=== PATIENT | male | born 1960 | race Caucasian/White ===

== ENCOUNTER → 2019-07-05 08:18 | Outpatient (BNVA) | payer MEDICARE, MEDICAID, SELFPAY | PROVIDERS: Family Provider Internal Medicine; PCP Internal Medicine; Visit Provider Psychiatry & Neurology Psychiatry | DX: F20.89 Other schizophrenia (principal) | CPT/HCPCS: 99213 ==

== ENCOUNTER → 2020-01-03 07:29 | Outpatient (BNVA) | payer MEDICARE, MEDICAID, SELFPAY | PROVIDERS: Family Provider Internal Medicine; PCP Internal Medicine; Visit Provider Psychiatry & Neurology Psychiatry | DX: F20.89 Other schizophrenia (principal) | CPT/HCPCS: 99213 ==

== ENCOUNTER → 2020-07-06 07:59 | Outpatient (BNVA) | payer MEDICARE, MEDICAID, SELFPAY | PROVIDERS: Family Provider Internal Medicine; PCP Internal Medicine; Visit Provider Psychiatry & Neurology Psychiatry | DX: F20.89 Other schizophrenia (principal) | CPT/HCPCS: 99213 ==

== ENCOUNTER 2020-10-26 09:05 | Outpatient (CLI) | payer MEDICARE, MEDICAID, SELFPAY ==
--- NOTE | 2020-10-26 09:20 | CT_ITS ---
WS: [id number] LDCT LUNG CANCER SCREENING HISTORY: HX OF TOBACCO USE TECHNIQUE: Axial imaging performed from the apices to 1 cm below the costophrenic angles. Coronal and sagittal reformats are submitted with axial MIP series. All CT scans at [facility] use at least one of these dose optimization techniques: automated exposure control; mA and/or kV adjustment per patient size (includes targeted exams where dose is matched to clinical indication); or iterativ e reconstruction. DLP: 83.66 mGy.cm DIvol: 2.38 mGy COMPARISON: None available. Diagnostic quality: Satisfactory Lung Nodules: None. Lungs: Emphysema. Focal areas of scarring and atelectasis in the RIGHT middle lobe and at the lung ba ses. Heart: Normal size heart. No pericardial effusion. Other findings: Very minimal atherosclerotic changes within the aorta. Normal size pulmonary artery. 12 mm LEFT thyroid nodule, inferior pole. Cholelithiasis without acute cholecystitis. CT/CT lung screening [id number] IMPRESSION: LUNG-RADS: 1-Negative FOLLOW UP: 12 Month: Continue annual screening with LDCT OTHER FINDINGS (S MODIFIER): None.
== END 2020-10-26 09:06 | disposition home or self-care (01) ==
LOC: RAD 09:11
PROVIDERS: PCP Internal Medicine; Visit Provider Physician Assistant
DX: Z12.2 Encounter for screening for malignant neoplasm of respiratory organs (principal); Z87.891 Personal history of nicotine dependence; E04.1 Nontoxic single thyroid nodule; K80.20 Calculus of gallbladder without cholecystitis without obstruction
CPT/HCPCS: 71271

== ENCOUNTER 2020-12-29 15:17 | Outpatient (CLI) | payer MEDICARE, MEDICAID, SELFPAY | END 2020-12-29 15:18 | disposition home or self-care (01) | LOC: SLEEP 15:17 | PROVIDERS: PCP Internal Medicine; Visit Provider Internal Medicine | DX: G47.10 Hypersomnia, unspecified (principal) | CPT/HCPCS: G0399 ==

== ENCOUNTER → 2021-01-01 08:29 | Outpatient (BNVA) | payer MEDICARE, MEDICAID, SELFPAY | PROVIDERS: PCP Internal Medicine; Visit Provider Psychiatry & Neurology Psychiatry | DX: F20.89 Other schizophrenia (principal) | CPT/HCPCS: 99213 ==

== ENCOUNTER → 2021-07-16 07:03 | Outpatient (BNVA) | payer MEDICARE, MEDICAID, SELFPAY | PROVIDERS: PCP Internal Medicine; Visit Provider Psychiatry & Neurology Psychiatry | DX: F20.89 Other schizophrenia (principal); G47.33 Obstructive sleep apnea (adult) (pediatric) | CPT/HCPCS: 99213 ==

== ENCOUNTER → 2022-01-06 09:10 | Outpatient (BNVA) | payer MEDICARE, MEDICAID, SELFPAY | PROVIDERS: PCP Internal Medicine; Visit Provider Podiatrist Foot & Ankle Surgery | DX: E11.8 Type 2 diabetes mellitus with unspecified complications (principal); B35.1 Tinea unguium; M76.61 Achilles tendinitis, right leg; B35.3 Tinea pedis; Z79.84 Long term (current) use of oral hypoglycemic drugs | CPT/HCPCS: 11721; 99213 ==

== ENCOUNTER → 2022-03-14 08:05 | Outpatient (BNVA) | payer MEDICARE, MEDICAID, SELFPAY | PROVIDERS: PCP Internal Medicine; Visit Provider Podiatrist Foot & Ankle Surgery | DX: E11.9 Type 2 diabetes mellitus without complications (principal); G62.9 Polyneuropathy, unspecified; M20.41 Other hammer toe(s) (acquired), right foot; M20.42 Other hammer toe(s) (acquired), left foot; B35.1 Tinea unguium; B35.3 Tinea pedis; Z79.84 Long term (current) use of oral hypoglycemic drugs | CPT/HCPCS: 11721 ==

== ENCOUNTER 2022-04-11 13:06 | Outpatient (CLI) | payer MEDICARE, MEDICAID, SELFPAY ==
--- NOTE | 2022-04-11 | CT_ITS ---
WS: [id number] LDCT LUNG CANCER SCREENING HISTORY: NICOTINE DEPENDENCE TECHNIQUE: Axial imaging performed from the apices to 1 cm below the costophrenic angles. Coronal and sagittal reformats are submitted with axial MIP series. All CT scans at use at least one of these dose optimization techniques: automated exposure control; mA and/or kV adjustment per patient size (includes targeted exams where dose is matched to clinical indication); or iterativ e reconstruction. DLP: 74.01 mGy.cm DIvol: Mean CTDIvol: 1.60 (mGy) COMPARISON: 10/26/2020 Diagnostic quality: Satisfactory Lung Nodules: No pulmonary nodule or mass. No endobronchial lesions. Lungs: Mildly hyperinflated lungs. Bronchial wall thickening and early changes of bronchiectasis in t he lower lung serrano. Greatest involving the RIGHT lower lobe. Heart: Normal size heart. There are a few scattered coronary artery calcifications. No pericardial ef fusion. Other findings: Mildly heterogeneous thyroid. LEFT thyroid nodule is difficult to identified on today 's examination due to motion. No chest wall abnormality. Cholelithiasis without acute cholecystitis. No adrenal mass. CT/CT lung screening [id number] IMPRESSION: LUNG-RADS: 1-Negative FOLLOW UP: 12 Month: Continue annual screening with LDCT OTHER FINDINGS (S MODIFIER): None.
== END 2022-04-11 13:07 | disposition home or self-care (01) ==
LOC: RAD 13:12
PROVIDERS: PCP Internal Medicine; Visit Provider Internal Medicine
DX: Z12.2 Encounter for screening for malignant neoplasm of respiratory organs (principal); Z87.891 Personal history of nicotine dependence
CPT/HCPCS: 71271

== ENCOUNTER → 2022-05-23 08:38 | Outpatient (BNVA) | payer MEDICARE, MEDICAID, SELFPAY | PROVIDERS: PCP Internal Medicine; Visit Provider Podiatrist Foot & Ankle Surgery | DX: E11.42 Type 2 diabetes mellitus with diabetic polyneuropathy (principal); Z79.84 Long term (current) use of oral hypoglycemic drugs; G62.9 Polyneuropathy, unspecified; M20.41 Other hammer toe(s) (acquired), right foot; M20.42 Other hammer toe(s) (acquired), left foot; B35.1 Tinea unguium | CPT/HCPCS: 11721 ==

== ENCOUNTER → 2022-08-22 10:09 | Outpatient (BNVA) | payer MEDICARE, MEDICAID, SELFPAY | PROVIDERS: PCP Internal Medicine; Visit Provider Podiatrist Foot & Ankle Surgery | DX: E11.42 Type 2 diabetes mellitus with diabetic polyneuropathy (principal); Z79.84 Long term (current) use of oral hypoglycemic drugs; B35.1 Tinea unguium; G62.9 Polyneuropathy, unspecified | CPT/HCPCS: 11721 ==

== ENCOUNTER → 2022-10-24 08:34 | Outpatient (BNVA) | payer MEDICARE, MEDICAID, SELFPAY | PROVIDERS: PCP Internal Medicine; Visit Provider Podiatrist Foot & Ankle Surgery | DX: B35.1 Tinea unguium (principal); G62.9 Polyneuropathy, unspecified; E11.42 Type 2 diabetes mellitus with diabetic polyneuropathy; Z79.84 Long term (current) use of oral hypoglycemic drugs; Z79.4 Long term (current) use of insulin | CPT/HCPCS: 11721 ==

== ENCOUNTER → 2022-12-30 08:44 | Outpatient (BNVA) | payer MEDICARE, MEDICAID, SELFPAY | PROVIDERS: PCP Internal Medicine; Visit Provider Podiatrist Foot & Ankle Surgery | DX: B35.1 Tinea unguium (principal); G62.9 Polyneuropathy, unspecified; E11.42 Type 2 diabetes mellitus with diabetic polyneuropathy; Z79.84 Long term (current) use of oral hypoglycemic drugs; Z79.4 Long term (current) use of insulin | CPT/HCPCS: 11721 ==

== ENCOUNTER → 2023-03-21 08:13 | Outpatient (BNVA) | payer MEDICARE, MEDICAID, OTHER, SELFPAY | PROVIDERS: PCP Internal Medicine; Visit Provider Podiatrist Foot & Ankle Surgery | DX: B35.1 Tinea unguium (principal); G62.9 Polyneuropathy, unspecified; M72.2 Plantar fascial fibromatosis; E11.42 Type 2 diabetes mellitus with diabetic polyneuropathy; Z79.84 Long term (current) use of oral hypoglycemic drugs | CPT/HCPCS: 11721; 99213 ==

== ENCOUNTER 2023-04-06 13:12 | Inpatient (IN) | payer MEDICARE, MEDICAID, SELFPAY ==
[2023-04-06] VITALS (12 sets, daily range): BP systolic 137–181; BP diastolic 92–128; PULSE 88–100; RESP 15–24; TEMP 36.4–37; O2SAT 94–98; BMI 27.1
--- NOTE | 2023-04-06 13:17 | ECG_ITS ---
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 Measurements Intervals [place] Rate: 101 P: 66 SC: 173 QRS: 58 QRSD: 96 T: 56 QT: 366 QTc: 476 Interpretive Statements SINUS TACHYCARDIA POSSIBLE RIGHT VENTRICULAR CONDUCTION DELAY [RSR (QR) IN V1/V2] SEPTAL MYOCARDIAL INFARCTION , POSSIBLY ACUTE [40+ ms Q WAVE IN V1/V2] MARKED ST ELEVATION, CONSIDER ANTERIOR INJURY [MARKED ST ELEVATION W/O NORMALLY INFLECTED T-WAVE IN V2-V5] ACUTE AR No previous ECG available for comparison Electronically Signed On 04-07-2023 9:30:22 METAL RECLAMATION KETTLE TENDER by Ted Pizarro M.D. [email or web address]/[id number] f
--- NOTE | 2023-04-06 13:17 | ECG_ITS ---
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 Measurements Intervals [place] Rate: 101 P: 66 [place]: 173 QRS: 58 QRSD: 96 T: 56 QT: 366 QTc: 476 Interpretive Statements SINUS TACHYCARDIA POSSIBLE RIGHT VENTRICULAR CONDUCTION DELAY [RSR (QR) IN V1/V2] SEPTAL MYOCARDIAL INFARCTION , POSSIBLY ACUTE [40+ ms Q WAVE IN V1/V2] MARKED ST ELEVATION, CONSIDER ANTERIOR INJURY [MARKED ST ELEVATION W/O NORMALLY INFLECTED T-WAVE IN V2-V5] ACUTE NC No previous ECG available for comparison Electronically Signed On 04-07-2023 9:36:05 MANAGER PACKAGING by Ted Pizarro M.D. [email or web address]/[id number] f
--- NOTE | 2023-04-06 13:21 | XACV_ITS ---
Exam Room: [facility] Ht: 188 cm Wt: 96 kg BSA: 2.25 m2 Gender: Male : 1960 Exam Priority: Routine Procedure(s): Procedure Description: Diagnostic procedure Procedure Description: PCI procedure Procedure Description: Drug Eluting Coronary Stent Procedure Description: Coronary Angiography Diagnostic Cath Status: Emergency Diagnostic Findings * Diabetic schizophrenic patient with chest discomfort. EKG shows ST elevation in leads V1 through V3 and reciprocal changes in the inferior leads. Angiography reveals an occluded LAD just past the ostium. There is minimal flow into a proximal septal and diagonal branch but otherwise the vessel is occluded. The first obtuse marginal branch of the circumflex contains a 50 to 60% stenosis. Otherwise the circumflex is unremarkable. The right coronary artery is the dominant vessel and contains moderate diffuse plaquing but no significant lesions. PCI Status: Emergency PCI LVEF Assessed: No PCI Indication: STEMI - Immediate PCI for STEMI Interventional Findings * The proximal LAD was primarily stented with a 3.5 x 22 mm stent with good druze of GRISELDA-3 flow. No left ventriculogram was performed due to mild renal insufficiency. Decision for PCI with Surgical Consult: No PCI for Multi-vessel Disease: No Conclusions 1. Acute anterior wall myocardial infarction with occluded LAD revascularized with stent. Recommendations * Medical treatment. Interventional RX Recommendation: PCI w/o planned CABG Diagnostic RX Recommendation: PCI w/o planned CABG Anticoagulation: Heparin Pressures Phase:Rest AO : 147 / 103 ( 124 ) @ 2:02:00 PM 158 / 104 ( 126 ) @ 2:05:00 PM 157 / 87 ( 57 ) @ 2:14:00 PM / ( -16 ) @ 2:15:00 PM 132 / 83 ( 104 ) @ 2:18:00 PM Clinical Evaluation EBL: 5mL-10mL Procedural Details Pre-Procedure Time Out. Identified patient by full name and date of as verbalized by the patient/guarantor. Does the consent match the physician's order: N/A Emergent. Accurate & Complete Informed Consent: N/A Emergent. Inpatient/Outpatient History & Physical on Chart: N/A Emergent. If H&P is completed, is and addenduem needed: N/A Emergent; If yes, is the addendum complete: N/A Emergent. Visualize and Verify Site with Patient/Guarantor: N/A. Relevant Radiology Images available: N/A Emergent. The risks, benefits, and alternatives of sedation and/or procedure were discussed by physician. The patient agrees to continue. Procedure started. [facility] Clinical Fraility Score: 6: Moderately Frail. Clinical Psychiatrist Indications: ACS <= 24 hours. Chest Pain Symptom Assessment: Typical Angina Symptoms. Correct patient, site and procedure confirmed by cath team. Current diagnosis: STEMI. PERRLA. Strong, equal hand dye range tender bilaterally. Lungs clear x 5 lobes. IV Site on Arrival: 20 gauge in the right anticubital. IV Site on Arrival: 18 gauge in the left anticubital. IV Fluids: 0.9% NaCl at KVO. 0 mL infused prior to laboratory courier. Pre Procedural Pulses: bilateral radial was 3+. Oxygen started at 2liters/min via nasal canula. right radial was prepped with chloroprep then draped in the usual sterile fashion. right groin was prepped with chloroprep then draped in the usual sterile fashion. Physician notified. Baseline sample Acquired. HR: 94 BPM. Physician arrived. Admit Source: Emergency department. Physician scrubbed in. Immediate Pre-Procedure Time Out. Correct Patient: Yes; Correct Procedure: Yes; Correct Site: Yes; Correct Patient Position: Yes; Correct Supplies: Yes; Dried Flammable Prep: Yes; Blood Products Available: No;. Lidocaine 1% infiltrated to the right radial. Arterial access obtained. 6 filipino XB 3 guide catheter was inserted over the wire. Multiple views taken of left coronary artery. PCI Indication: STEMI. Orange guidewire was advanced through the guide catheter to lesion in the prox LAD. Guidewire advanced across lesion. Stent inserted to lesion in the prox LAD. Inflation Number : 1 Madonna Brambila SENA 3.5X22 MERT -Lot Number#[id number] EXP 04-13-2025 was prepped and advanced across the Prox LAD. The stent was deployed at 12 EKTA for 0:30 seconds. Results checked. Stent balloon and wire out. Guide catheter out. A 5 filipino JR4 catheter in over wire. Multiple views taken of right coronary artery. Catheter removed over the exchange wire. Wire out. Physician scrubbed out. Post Procedure: Pulses reassessed and unchanged. PERRLA. Strong, equal hand dye range tender bilaterally. No VTE prophylaxis required. Medication's Wasted: Heparin = 1000 unit. Medication's Wasted: Lidocaine 1% = 1 mL. A TR Band was successful obtaining hemostatsis at the Right Radial artery insertion site. Total IV fluids: 40 mL. Post-op diagnosis: Anterior Wall HI. Estimated blood loss: 5mL-10mL. Complications: None. Responsiveness - Normal response to verbal stimuli; alert and oriented, PERRLA. Airway - Unaffected, no intervention required; spontaneous ventilation. Circulation: W/N/L, pulses unchanged. Nausea/Vomiting: No. Nitro gtt stopped by Meliton Shepherd RN as ordered by physician. Procedure completed. Patient transferred by wheelchair to 1st floor. Vital chart was stopped. Access Site Site: Right Radial artery Sheath Size: 6 Fr Hemostasis Method: TR Band Hemostasis Success: Successful Procedure Medications Start: 1:50 PM Stop: 1:50 PM Medication: Diphendryamine Amount: 50 mg Route: I.V. Start: 1:53 PM Stop: 1:53 PM Medication: Versed Amount: 1 mg Route: I.V. Start: 1:54 PM Stop: 1:54 PM Medication: Fentanyl Amount: 50 mcg Route: I.V. Start: 2:00 PM Stop: 2:00 PM Medication: Nitrogylcerin Amount: 200 mcg Route: I.A. Start: 2:03 PM Stop: 2:03 PM Medication: Nitrogylcerin Amount: 20 mcg/min Route: I.V. drip Start: 2:13 PM Stop: 2:13 PM Medication: Versed Amount: 1 mg Route: I.V. Start: 2:13 PM Stop: 2:13 PM Medication: Fentanyl Amount: 50 mcg Route: I.V. I, the attending physician, have reviewed and verified all procedure medications. Yes, all medications given per verbal order History/Risk Factors Hypertension: No Dyslipidemia: No Peripheral Arterial Disease (PAD): No Myocardial Infarction (HI): No Obesity: No Renal Disease: No Prior Interventions PCI: No CABG: No Valve Surgery: No Report Signatures Finalized by Dr. Timur Kaur MD on 04/06/2023 02:37 PM
--- NOTE | 2023-04-06 13:23 | W.ED.CHESTPA ---
HPI - Chest Pain General: Chief Complaint: Chest Pain Stated Complaint: chest pain Time Seen by Provider: 04/06/23 13:21 Source: patient Mode of arrival: ambulatory History of Present Illness: 63-year-old male with significant mental handicap presents emergency room with a caregiver from the [facility]. Reports having chest pain that began at rest approximately an hour and a half prior to arrival here. Initial EKG shows ST elevation AZ difficult because of his mental handicap to get him to quantify his pain. He does have a history of diabetes mellitus he is on insulin he does not have any known history of previous AZ MD complaint: chest pain Onset (ago): hour(s) Associated symptoms: Deny abdominal pain, dyspnea or fever(s) Review of Systems Const: Denies: fever(s) or chills Card: Denies: chest pain Resp: Denies: dyspnea GI: Denies: abdominal pain : Denies: dysuria, urinary frequency or urinary urgency Musc: Denies: neck pain or back pain Skin/Breast: Denies: rash PFSH ED PFSH: Medical History (Updated 04/07/23 @ 06:56 by Pj Stafford DO) Acute anterior wall AZ Psychiatric care Cigarette smoker Other schizophrenia Social History Smoking and tobacco/nicotine status: never used tobacco/nicotine Physical Exam Const: COMMON NORMALS: no acute distress GENERAL APPEARANCE: cooperative and comfortable ORIENTATION/CONSCIOUSNESS: Yes awake, Yes oriented to person, Yes oriented to place and Yes oriented to time HENMT: COMMON NORMALS: normocephalic, atraumatic and hearing grossly normal bilaterally HEAD & SCALP: normocephalic and atraumatic Resp: COMMON NORMALS: normal respiratory effort, No retractions, No use of accessory muscles and clear to auscultation bilaterally AUSCULTATION: clear to auscultation bilaterally Cardio: COMMON NORMALS: regular rate, regular rhythm and No murmurs present (Cardio) RATE: regular rate RHYTHM: regular rhythm GI: COMMON NORMALS: Soft to palpation and No hepatosplenomegaly present AUSCULTATION: Yes normoactive bowel sounds PALPATION: Yes Soft to palpation, No Tenderness to palpation present (GI), No Guarding due to palpation present (GI) and Yes No hepatosplenomegaly present Extremity: COMMON NORMALS: normal to inspection, capillary refill normal, no clubbing, cyanosis or edema, no calf tenderness and no pedal edema Neuro: SENSORIUM/ORIENTATION: Yes oriented to person, Yes oriented to place and Yes oriented to time Skin: COMMON NORMALS: no rashes or lesions noted GENERAL SKIN EXAM: no rashes or lesions noted Course Vital Signs: Vital signs: Vital Signs Temperature 98.9 F 04/07/23 04:00 Pulse Rate 95 04/07/23 05:46 Respiratory Rate 24 H 04/07/23 04:00 Blood Pressure 147/96 04/07/23 04:00 Pulse Oximetry 94 04/07/23 04:00 Oxygen Delivery Me thod Room Air 04/07/23 04:00 Oxygen Flow Rate 2 04/06/23 13:32 MDM - Chest Pain Medical Decision Making Patient has a congenital cognitive disability and resides in a [facility]. His sister is power of donor technician the [facility] had contacted her that they would be bringing him to the emergency room but now they are unable to get a hold of her by any usual fashions. Talk to Albina eLung [facility] she stated that the patient is a full code in her opinion the sister who is part of donor technician would want everything possible done. The patient is clearly having an ST elevation AZ and it is critical for him to proceed with this procedure. Dr. Kaur is on-call for cardiology we have discussed and reviewed he is aware that we are still looking for the power of donor technician but we both agree that based on implied consent the patient should proceed with the procedure. We will continue to try to find the sister to discuss with her. Dr. Kaur is having the patient taken to the cardiac Lens Maker during at the time of this dictation. Medical Records I reviewed the patient's medical records. Lab Data I reviewed the patient's lab results. 04/06/23 13:21 04/06/23 13:21 Laboratory Results WBC 11.18 10^3/uL (3.29-11.43) 04/06/23 13:21 RBC 4.99 10^6/uL (3.85-5.65) 04/06/23 13:21 Hgb 15.90 g/dL (11.27-16.99) 04/06/23 13:21 Hct 47.9 % (37-53) 04/06/23 13:21 MCV 96.0 fl (82-101) 04/06/23 13:21 MCH 31.9 pg (27-33) 04/06/23 13:21 MCHC 33.2 g/dL (30-55) 04/06/23 13:21 RDW 13.0 % (12.1-15.1) 04/06/23 13:21 Plt Count 211 10^3/cmm (157-399) 04/06/23 13:21 MPV 10.3 fL (7.4-10.4) 04/06/23 13:21 Neut % (Auto) 66.4 % 04/06/23 13:21 Lymph % (Auto) 22.4 % 04/06/23 13:21 [place] % (Auto) 7.5 % 04/06/23 13:21 Eos % (Auto) 3.1 % 04/06/23 13:21 Baso % (Auto) 0.3 % 04/06/23 13:21 Neut # (Auto) 7.43 10^3/uL (1.8-7.7) 04/06/23 13:21 Lymph # (Auto) 2.5 10^3/uL (0.8-4.8) 04/06/23 13:21 [place] # (Auto) 0.8 10^3/uL (0.2-0.9) 04/06/23 13:21 Eos # (Auto) 0.4 10^3/uL (0.0-0.8) 04/06/23 13:21 Baso # (Auto) 0.0 10^3/uL (0.0-0.1) 04/06/23 13:21 Nucleated RBC % (auto) 0 % 04/06/23 13:21 Nucleated RBCs # 0.0 /100WBC 04/06/23 13:21 PT 13.40 SECONDS (12.1-14.9) 04/06/23 13:21 INR 0.99 (0.8-1.2) 04/06/23 13:21 Sodium 143 mmol/L (136-145) 04/06/23 13:21 Potassium 3.9 mmol/L (3.5-5.1) 04/06/23 13:21 Chloride 104 mmol/L (98-107) 04/06/23 13:21 Carbon Dioxide 23 mmol/L (22-29) 04/06/23 13:21 Anion Gap 19.9 (5-19) H 04/06/23 13:21 BUN 21 mg/dL (8-23) 04/06/23 13:21 Creatinine 1.5 mg/dL (0.7-1.2) H 04/06/23 13:21 GFR Calculation 47.1 mL/min (90-130) L 04/06/23 13:21 Glucose 197 mg/dL (65-115) H 04/06/23 13:21 Calculated Osmolality 304 mOsm/kg (285-295) H 04/06/23 13:21 Calcium 9.2 mg/dL (8.5-10.5) 04/06/23 13:21 Total Bilirubin 0.3 mg/dL (0.15-1.2) 04/06/23 13:21 AST 17 U/L (0-40) 04/06/23 13:21 ALT 16 U/L (0-41) 04/06/23 13:21 Alkaline Phosphatase 104 U/L (40-130) 04/06/23 13:21 Troponin T Baseline 24 ng/L (0-15) H 04/06/23 13:21 Total Protein 7.7 g/dL (6.6-8.7) 04/06/23 13:21 Albumin 4.7 g/dL (3.5-5.2) 04/06/23 13:21 Globulin 3.0 g/dL (1.3-4.6) 04/06/23 13:21 No radiology studies performed this visit Discharge Plan Discharge Patient Disposition: Admitted As Inpatient Admit Provider: Timur Kaur Clinical Impression: ST elevation myocardial infarction (STEMI) Condition: Stable Coding Level of Care Code ED Machine Bunch Maker for Sachi Rene
[2023-04-06] MEDS: heparin 5,000 unit/mL INJ 1 mL 4000 UNIT IVP (13:27)
[2023-04-06] MEDS: aspirin 325 mg Tablet PO (13:28)
[2023-04-06] MEDS: clopidogrel 300 mg Tablet 600 MG PO (13:28)
[2023-04-06 13:30] LABS: Basophils % 0.3 %; Eosinophils # 0.4 10^3/uL (0.0-0.8); Eosinophils % 3.1 %; Hematocrit 47.9 % (37-53); Lymphocytes # 2.5 10^3/uL (0.8-4.8); Lymphocytes % 22.4 %; Mean Corpuscular HGB Conc 33.2 g/dL (30-55); Mean Corpuscular Hemoglobin 31.9 pg (27-33); Mean Platelet Volume 10.3 fL (7.4-10.4); Monocytes # 0.8 10^3/uL (0.2-0.9); Monocytes % 7.5 %; Neutrophils # 7.43 10^3/uL (1.8-7.7); Neutrophils % 66.4 %; Nucleated Red Blood Cells % 0 %; Platelet Count 211 10^3/cmm (157-399); Red Blood Count 4.99 10^6/uL (3.85-5.65); White Blood Count 11.18 10^3/uL (3.29-11.43)
[2023-04-06] MEDS: metoprolol tartrate 1 mg/1 mL SDV 5 mL 2.5 MG IVP (13:32)
[2023-04-06 13:41] LABS: INR 0.99 (0.8-1.2)
--- NOTE | 2023-04-06 13:41 | PM.HP ---
Providers/Chief Complaint Admitting Physician: sydney Primary Care Provider: Prashanth Wu DO Chief Complaint: chest pain History of Present Illness Sim Angeles is a 63 year old male who apparently has schizophrenia and lives in a skilled nursing. He is not able to make his own decisions and his sister is his power of ip technology transactions attorney for healthcare decisions. Patient developed chest pain at the skilled nursing. He was brought to the emergency room where he has ST elevation in leads V1, V2 and V3. He has ST depression in leads II, III and aVF. He is having an acute anterior wall NC. He states that his chest pain is a little better now than it was earlier but he still having some discomfort. He has a very flat affect but is communicative. We have made multiple attempts to contact his sister who is not available at this point. She apparently was told by the skilled nursing that he was coming to the emergency room but has not made contact with us. Both the emergency room physician and myself feel that this is an emergency and that he needs urgent cardiac catheterization. I have spoken to him about this and he is in agreement. Review of Systems Narrative: Unavailable Medications/Allergies Home Medications Medication Instructions Recorded Confirmed Last Taken Type acetaminophen 325 mg tablet 650 mg PO Q6H PRN 07/08/19 03/21/23 Unknown History (Tylenol) lithium carbonate 300 mg tablet 300 mg PO BID 07/08/19 03/21/23 Unknown History metformin 1,000 mg tablet 1,000 mg PO BID 07/08/19 03/21/23 Unknown History metoprolol tartrate 25 mg tablet 25 mg PO BID 07/08/19 03/21/23 Unknown History multivit with minerals-iron 18 tab PO DAILY 07/08/19 03/21/23 Unknown History mg-folic ac 400 mcg-vit K 25 mcg tablet (Adults Multivitamin) olanzapine 15 mg tablet (Zyprexa) 15 mg PO .HS 07/08/19 03/21/23 Unknown History olanzapine 2.5 mg tablet (Zyprexa) 2.5 mg PO .AT HS 07/08/19 03/21/23 Unknown History zolpidem 10 mg tablet (Ambien) 10 mg PO .HS PRN insomnia 07/08/19 03/21/23 Unknown History dapagliflozin propanediol 10 mg 10 mg PO DAILY 01/03/20 03/21/23 Unknown History tablet (Farxiga) potassium chloride 20 mEq 10 meq PO DAILY 01/01/21 03/21/23 Unknown History tablet,extended release bismuth subsalicylate 525 mg/15 mL 525 mg PO Q30M PRN 10/07/21 03/21/23 Unknown History oral suspension (Pepto-Bismol Max St) polyethylene glycol 3350 17 4 g PO DAILY 10/07/21 03/21/23 Unknown History gram/dose oral powder fluticasone propionate 50 1 spray intranasal DAILY PRN 11/12/21 03/21/23 Unknown History mcg/actuation nasal spray,suspension glipizide 10 mg tablet 10 mg PO DAILY 11/12/21 03/21/23 Unknown History loratadine 10 mg tablet (Allergy 10 mg PO DAILY PRN 11/12/21 03/21/23 Unknown History Relief (loratadine)) melatonin 3 mg capsule 3 mg PO DAILY 11/12/21 03/21/23 Unknown History topiramate 100 mg tablet 200 mg PO .at HS 11/12/21 03/21/23 Unknown History losartan 50 mg tablet (Cozaar) 25 mg PO DAILY 04/08/22 03/21/23 Unknown History omeprazole 20 mg tablet,delayed 20 mg PO DAILY 04/08/22 03/21/23 Unknown History release simvastatin 20 mg tablet 20 mg PO DAILY 04/08/22 03/21/23 Unknown History insulin lispro 100 unit/mL 5 unit SUBCUT TID 09/02/22 03/21/23 Unknown History subcutaneous cartridge (Humalog U-100 Insulin) Allergies Allergy/AdvReac Type Severity Reaction Status Date / Time No Known Allergies Allergy Verified 03/21/23 08:17 PFSH Acute PFSH: Medical History (Updated 04/06/23 @ 13:46 by Timur Kaur MD) Acute anterior wall NC Psychiatric care Cigarette smoker Other schizophrenia Social History Smoking and tobacco/nicotine status: never used tobacco/nicotine Vitals/I&O/Wt Last Vital Signs Temp 97.6 F 04/06/23 13:20 Pulse 99 04/06/23 13:32 Resp 19 H 04/06/23 13:27 BP 174/128 04/06/23 13:32 Pulse Ox 96 04/06/23 13:32 O2 Del Method Nasal Cannula 04/06/23 13:32 O2 Flow Rate 2 04/06/23 13:32 Weight last 48 hrs Weight 211 lb Physical Exam Narrative: GENERAL: In general he is comfortable and does not appear to be in any distress. Blood pressures 116/100 with a heart rate of 105. HEENT: Exam within normal limits. [] NECK: Supple without jugular vein distention. The carotid upstroke is normal without bruits. [] BACK: Exam normal. [] LUNGS: Clear. [] HEART: Regular rate and rhythm. [] ABDOMEN: Benign without organomegaly or tenderness. [] EXTREMITIES: No edema. [] NEUROLOGIC: Exam normal. [] SKIN: Unremarkable. [] Data 04/06/23 13:21 04/06/23 13:21 A&P Assessment and plan (1) Other schizophrenia: (2) Obstructive sleep apnea: (3) Acute anterior wall NC: Plan Urgent coronary angiography. Neither the hospital emergency room staff nor I can find his sister to get consent over the phone. The emergency room physician and I both feel like it is an emergency and have made the decision to proceed with angiography. Waiting could significantly put his life at risk and at a minimum because significant left ventricular dysfunction and heart failure. The worst case scenario would be that he would from this. Attestations Medical Necessity Statement*: He will need admission for management of an acute anterior wall NC. He will need a 2 midnight stay. and High Time for a total of 62 minutes, includes reviewing past or interval history, examining/interviewing patient, placing orders, counseling patient/family/other support, updating patient/family/other support, discussing plan of care with staff, communicating with other healthcare providers, documenting encounter and coordinating care Diagnoses Other schizophrenia F20.89 Obstructive sleep apnea G47.33 Acute anterior wall NC I21.09
[2023-04-06 13:46] LABS: Alanine Aminotransferase 16 U/L (0-41); Albumin Level 4.7 g/dL (3.5-5.2); Alkaline Phosphatase 104 U/L (40-130); Anion Gap 19.9 (5-19); Aspartate Amino Transferase 17 U/L (0-40); Blood Urea Nitrogen 21 mg/dL (8-23); Calcium 9.2 mg/dL (8.5-10.5); Carbon Dioxide 23 mmol/L (22-29); Chloride 104 mmol/L (98-107); Glomerular Filtration Rate 47.1 mL/min (90-130); Glucose 197 mg/dL (65-115); Osmolality Calculated 304 mOsm/kg (285-295); Potassium 3.9 mmol/L (3.5-5.1); Sodium 143 mmol/L (136-145); Total Bilirubin 0.3 mg/dL (0.15-1.2); Total Protein 7.7 g/dL (6.6-8.7)
--- NOTE | 2023-04-06 13:49 | PC.NURSE ---
SISTER CALLED, GAVE PERMISSION TO TREAT TO PROVIDER. APPEALS ANALYST CALLED WITH THIS INFORMATION.
[2023-04-06 13:50] LABS: Troponin(5th) Baseline 24 ng/L (0-15)
[2023-04-06 16:33] LABS: Troponin 5 2HR 3918 ng/L (0-15); Troponin 5 2HR Delta 3894 ABS# (0-10)
[2023-04-06] MEDS: metoprolol tartrate 25 mg Tablet PO (17:56)
[2023-04-06] MEDS: lithium carbonate 300 mg Capsule PO (17:56)
[2023-04-06] MEDS: insulin lispro 100 unit/1 mL SUBCUT (17:56)
[2023-04-06] MEDS: temazepam 15 mg Capsule PO (20:28)
[2023-04-06] MEDS: OLANZapine 5 mg TABLET 2.5 MG PO (20:29)
[2023-04-06] MEDS: OLANZapine 5 mg TABLET 15 MG PO (20:29)
[2023-04-06] MEDS: topiramate 100 mg Tablet 200 MG PO (20:29)
--- NOTE | 2023-04-06 20:37 | PC.NURSE ---
TR band off at this time. No s/s of bleeding or hematoma formation observed. Patient denies pain to site. Wrapped with 2x2 and coban. Instructed patient on site care and restrictions. Patient verbalized understanding. Will continue to monitor.
[2023-04-06 21:25] LABS: Glucose Point of Care 262 mg/dL (70-110)
[2023-04-06 21:25] LABS: Troponin 5 6HR > 10000 ng/L (0-15)
[2023-04-06] MEDS: sodium chloride 0.9% 1,000 ML 100 ML IV (22:26)
[2023-04-07] VITALS (9 sets, daily range): BP systolic 131–149; BP diastolic 80–100; PULSE 88–95; RESP 21–31; TEMP 36.6–37.2; O2SAT 92–96
[2023-04-07 06:18] LABS: Glucose Point of Care 267 mg/dL (70-110)
--- NOTE | 2023-04-07 07:46 | PM.PN ---
Subjective Subjective: Sim has had an uneventful night. No problems. He says he is a little sore . No shortness of breath. No evidence of heart failure. No further angina. His LAD was completely occluded and was primarily stented. His labs came back after the procedure. His baseline troponin was 24, 2-hour troponin 3918 and 6-hour troponin greater than 10,000. BUN and creatinine 47 and 1.5. Vitals/I&O/Wt Last Vital Signs Temp 98.2 F 04/07/23 07:36 Pulse 93 04/07/23 07:36 Resp 21 H 04/07/23 07:36 BP 146/94 04/07/23 07:36 Pulse Ox 96 04/07/23 07:36 O2 Del Method Room Air 04/07/23 07:36 O2 Flow Rate 2 04/06/23 13:32 04/06/23 04/07/23 04/07/23 22:59 06:59 14:59 Intake Total 240 / 240 720 / 960 Output Total 500 / 500 1500 / 2000 Balance -260 / -260 -780 / -1040 Weight last 48 hrs Weight 209 lb 11.2 oz Weight 211 lb Weight 211 lb Physical Exam Narrative: GENERAL: In general he is comfortable today and talkative. HEENT: Exam within normal limits. NECK: Supple without jugular vein distention. The carotid upstroke is normal without bruits. BACK: Exam normal. LUNGS: Clear. HEART: Regular rate and rhythm. ABDOMEN: Benign without organomegaly or tenderness. EXTREMITIES: No edema. NEUROLOGIC: Exam normal. SKIN: Unremarkable. Data 04/06/23 13:21 04/06/23 13:21 A&P Assessment and plan (1) Acute anterior wall WY: (2) ST elevation myocardial infarction (STEMI): (3) Other schizophrenia: (4) Obstructive sleep apnea: (5) Chronic kidney disease (CKD): Plan So far there have been no complications. No arrhythmias and no heart failure. He did have brief runs of accelerated idioventricular rhythm in the Area Operations Manager. I will obtain an echo today to assess his left ventricular function post [place]. Will have him get up and around today. Anticipate discharge home tomorrow. Attestations Medical Necessity Statement*: Hospitalization for management of an acute anterior wall myocardial infarction and High Time for a total of 35 minutes, includes reviewing past or interval history, examining/interviewing patient, placing orders, counseling patient/family/other support, updating patient/family/other support, discussing plan of care with staff, communicating with other healthcare providers, documenting encounter and coordinating care Diagnoses Acute anterior wall [place] I21.09 ST elevation myocardial infarction (STEMI) I21.3 Other schizophrenia F20.89 Obstructive sleep apnea G47.33 Chronic kidney disease (CKD) N18.9
--- NOTE | 2023-04-07 07:52 | USCV_ITS ---
Sim Angeles Age: 63 Gender: M : 1960 Exam Date: 04/07/2023 09:19 Ordering Phys: Timur Kaur MD Technologist: Meliton Munoz Exam Location: [facility] – [place] Indication: ? mi BP: 140 / 74 HR: 0 Rhythm: Sinus Technical Quality: Adequate MEASUREMENTS (Male / Female) Normal Values 2D ECHO IVS Diastolic Thickness 1.1 cm 0.6 - 1.0 / 0.6 - 0.9 cm IVS Systolic Thickness 1.1 cm LVPW Diastolic Thickness 1.0 cm 0.6 - 1.0 / 0.6 - 0.9 cm LVPW Systolic Thickness 1.2 cm LVOT Diameter 2.0 cm LV Ejection Fraction 2D Teich 38.3 % M-MODE LA Ao Ratio MM 1.1 AV Cusp Separation MM 1.8 cm DOPPLER LVOT Peak Velocity 73.0 cm/s AV Area Cont Eq vti 4.1 cm squared MV Area PHT 6.3 cm squared Mitral E to A Ratio 0.5 TV Peak Velocity 193.0 cm/s TR Peak Velocity 210.0 cm/s TR Peak Gradient 17.6 mmHg Right Atrial Pressure 3.0 mmHg Pulmonary Artery Systolic Pressu 20.6 mmHg PV Peak Velocity 91.0 cm/s FINDINGS Left Ventricle Mildly increased left ventricular cavity size. Normal left ventricular wall thickness. Severely decreased left ventricular systolic function. Regional wall motion abnormalities (see diagram). Grade I/IV diastolic dysfunction (abnormal relaxation filling pattern), normal to mildly elevated filling pressures. Left ventricular ejection fraction is estimated at 25 %. The entire anterior wall, apex and apical septum are akinetic. The inferior, posterior and lateral law[place] are spared. Right Ventricle Normal right ventricular size and systolic function. Normal right ventricular systolic pressure. Right Atrium The right atrium is normal in size. Left Atrium The left atrium is normal in size. Mitral Valve Structurally normal mitral valve without significant stenosis or prolapse. There is no mitral regurgitation. Aortic Valve Structurally normal aortic valve without significant sclerosis or stenosis. There is no aortic regurgitation. Tricuspid Valve Structurally normal tricuspid valve without significant stenosis or regurgitation. Pulmonary artery systolic pressure is normal. Pulmonic Valve Pulmonic valve not well visualized. Pericardium Normal pericardium without effusion. Aorta Normal ascending aorta dimension. IVC The inferior vena cava appears normal. CONCLUSIONS Mildly increased left ventricular cavity size. Normal left ventricular wall thickness. Severely decreased left ventricular systolic function. Regional wall motion abnormalities (see diagram). Grade I/IV diastolic dysfunction (abnormal relaxation filling pattern), normal to mildly elevated filling pressures. Left ventricular ejection fraction is estimated at 25 %. The entire anterior wall, apex and apical septum are akinetic. The inferior, posterior and lateral law[place] are spared. This represents a large LAD distribution myocardial infarction. There are no prior echocardiogram studies to compare. Dr. Timur Kaur MD (Electronically Signed) Final Date: 07 April 2023 15:31 S
[2023-04-07] MEDS: aspirin 81 mg EC Tablet PO (08:26)
[2023-04-07] MEDS: potassium chloride ER 10 mEq Tablet PO (08:26)
[2023-04-07] MEDS: losartan 50 mg Tablet 25 MG PO (08:26)
[2023-04-07] MEDS: clopidogrel 75 mg Tablet PO (08:27)
[2023-04-07] MEDS: atorvastatin 40 mg Tablet 20 MG PO (08:27)
[2023-04-07] MEDS: pantoprazole DR 40 mg Tablet PO (08:27)
[2023-04-07] MEDS: metoprolol tartrate 25 mg Tablet PO ×2 (08:27→17:29)
[2023-04-07] MEDS: polyethylene glycol 3350 Pkt 17 gm PO (08:28)
[2023-04-07] MEDS: insulin lispro 100 unit/1 mL SUBCUT ×3 (08:30→17:28)
--- NOTE | 2023-04-07 08:32 | PC.PHAR ---
Addendum entered by Hemalatha Vela 04/07/23 10:05: MEDICATIONS ENTERED ARE FROM THE MAR AND TAR THAT [facility] FAXED-MAR HAS METOPROLOL TARTRATE 25MG BID CHANTALE STATES THE PT IS TAKING METOPROLOL SUCC ER 50MG 1/2 TAB (25MG) BID- Addendum entered by Hemalatha Vela 04/07/23 09:08: [facility] going to try to fax marquis funez Original Note: pt is from [facility] [phone]-marquis tomlin from [facility] states she will fax mar and tar
[2023-04-07] MEDS: lithium carbonate 300 mg Capsule PO ×2 (08:33→17:29)
--- NOTE | 2023-04-07 09:26 | PC.CHAP ---
Pastoral Care Encounter/Spiritual Assessment Type of Contact [] Declined director geothermal operations visit [] Patient/Family/Request visit [] Outpatient visit [] Follow-up visit [] Physician referral [] Code/Alert [x] Routine visit [] Staff referral [] Actively dying [] Patient sleeping [x] Family support [] [] Out of room [] Palliative care [] [] Receiving care in room [] Pre-surgical visit [] Trauma [] Long length of stay [] ICU visit [] Other: Relational/Emotional Strength [x] Patient feels connected with others/family/visitors/staff [] Distress [] Loneliness/isolation [] Abandonment Spirituality of Patient [x] Person of Nena [] Attends Gnosticist of their Nena [x] Believes in Prayer [] Reads Bible or Worship materials [] There are Spiritual issues to be addressed Actionscript Developer Interventions [x] Prayer [x] Active listening [] Non-anxious presence [x] Spiritual/emotional support [] Crisis/trauma care [] Spiritual counseling [] Bereavement support [] Provided bereavement packet [] Provided Bible/devotional materials [] Provided toy/stuffed animal, coloring book to patient or family member [] Provided Communion [] Anointing/[place] [] Salvation [x] Completed spiritual assessment [] Other: Impact on Illness or Injury [] Angry [] Fearful [] Anxious [] Often cries [] Exhaustion [] Unable to work [] Unable to attend hindu [] Unable to walk/stand [] Unable to read [] Unable to drive [] Unable to eat/drink [] Unable to sleep [] Unable to be with family [] Patient intubated [] Other: Summary Time spent with patient 5 min
[2023-04-07 10:46] LABS: Glucose Point of Care 303 mg/dL (70-110)
[2023-04-07 16:59] LABS: Glucose Point of Care 270 mg/dL (70-110)
[2023-04-07] MEDS: OLANZapine 5 mg TABLET 15 MG PO (20:00)
[2023-04-07] MEDS: temazepam 15 mg Capsule PO (20:00)
[2023-04-07] MEDS: OLANZapine 5 mg TABLET 2.5 MG PO (20:00)
[2023-04-07] MEDS: topiramate 100 mg Tablet 200 MG PO (20:00)
[2023-04-07 21:03] LABS: Glucose Point of Care 317 mg/dL (70-110)
[2023-04-08] VITALS: BP 114/83; PULSE 93; RESP 32; TEMP 37.2; O2SAT 94
[2023-04-08 04:00] VITALS: BP 116/80; PULSE 95; RESP 21; TEMP 36.6; O2SAT 94
[2023-04-08 04:20] LABS: Basophils % 0.1 %; Eosinophils # 0.1 10^3/uL (0.0-0.8); Eosinophils % 0.7 %; Hematocrit 42.2 % (37-53); Lymphocytes # 1.7 10^3/uL (0.8-4.8); Lymphocytes % 12.7 %; Mean Corpuscular HGB Conc 32.2 g/dL (30-55); Mean Corpuscular Hemoglobin 31.5 pg (27-33); Mean Corpuscular Volume 97.7 fl (82-101); Mean Platelet Volume 10.6 fL (7.4-10.4); Monocytes # 1.5 10^3/uL (0.2-0.9); Monocytes % 11.4 %; Neutrophils # 10.07 10^3/uL (1.8-7.7); Neutrophils % 74.7 %; Nucleated Red Blood Cells % 0 %; Platelet Count 141 10^3/cmm (157-399); Red Blood Count 4.32 10^6/uL (3.85-5.65); Red Cell Distribution Width 13.2 % (12.1-15.1); White Blood Count 13.48 10^3/uL (3.29-11.43)
[2023-04-08 04:40] LABS: Blood Urea Nitrogen 20 mg/dL (8-23); Calcium 8.6 mg/dL (8.5-10.5); Carbon Dioxide 20 mmol/L (22-29); Chloride 109 mmol/L (98-107); Glucose 202 mg/dL (65-115); Osmolality Calculated 298 mOsm/kg (285-295); Sodium 140 mmol/L (136-145)
[2023-04-08 05:04] VITALS: PULSE 90
[2023-04-08 06:46] LABS: Glucose Point of Care 229 mg/dL (70-110)
[2023-04-08 07:19] VITALS: BP 109/78; PULSE 91; RESP 13; TEMP 36.4; O2SAT 95
--- NOTE | 2023-04-08 07:47 | P.DS_ITS ---
Discharge Providers Date of Admission: 04/06/23 15:39 Date of Discharge: April 08, 2023 Attending Provider at Admission: Timur Kaur MD Attending Provider at Discharge: Tmiur Kaur MD Primary Care Provider: Prashanth Wu DO Diagnoses at Discharge Discharge Diagnosis (1) Acute anterior wall [place]: Status: Acute (2) ST elevation myocardial infarction (STEMI): Status: Acute (3) Other schizophrenia: Status: Acute (4) Obstructive sleep apnea: Status: Acute (5) Chronic kidney disease (CKD): Status: Chronic (6) Cigarette smoker: Status: Acute (7) Diabetes: Status: Acute (8) Ischemic cardiomyopathy: Status: Acute Reason for Visit Reason for Visit: chest pain Brief History: Sim is 63 with schizophrenia who lives in a snf. He came in with chest pain. History is limited due to his rather flat affect and minimal communication. It is difficult to tell how long he had been having chest pain. EKG revealed ST elevation in the anterior precordial leads. He went directly to the catheterization laboratory. Hospital Course Hospital Course Angiography was performed via the right radial artery. His LAD was occluded just past the ostium. It was stented with a 3.5 x 22 mm stent with jew of GRISELDA-3 flow. The echo showed a significant wall motion disturbance in the apical septum, apex and anterior wall. His ejection fraction is in the mid 20s. He suffered no arrhythmias other than some accelerated idioventricular rhythm shortly after the vessel was reperfused. There was no evidence of heart failure. He had no further chest pain. There were no complications at the entry site. Contrast material was minimized due to his creatinine. His discharge BUN and creatinine are 20 and 1.4. His admission BUN and creatinine are 21 and 1.5. Glomerular filtration rate is 51. His diabetes was treated appropriately during his hospital stay. Blood sugars ran in the low to mid 200s. His troponin peaked at greater than 10,000 suggesting a rather large myocardial infarction. He will hold the metformin until tomorrow. Will see him in follow-up in a week to 10 days to check his radial artery and his chemistry panel. Physical Exam Narrative: GENERAL: In general he looks and feels well without complaint HEENT: Exam within normal limits. NECK: Supple without jugular vein distention. The carotid upstroke is normal without bruits. BACK: Exam normal. LUNGS: Clear. HEART: Regular rate and rhythm. ABDOMEN: Benign without organomegaly or tenderness. EXTREMITIES: No edema. The right radial artery entry site is flat, dry without hematoma or bleeding. NEUROLOGIC: Exam normal. SKIN: Unremarkable. Discharge Data Studies Completed and Pending Completed Studies During Hospitalization Category Date Time Status SOFTWARE RELIABILITY ENGINEER request for service Stat Exams 04/06/23 13:21 Completed CV. echo complete* [id number] Routine Ultrasound 04/07/23 07:52 Completed Laboratory Results WBC 13.48 10^3/uL (3.29-11.43) H 04/08/23 03:49 RBC 4.32 10^6/uL (3.85-5.65) 04/08/23 03:49 Hgb 13.60 g/dL (11.27-16.99) 04/08/23 03:49 Hct 42.2 % (37-53) 04/08/23 03:49 MCV 97.7 fl (82-101) 04/08/23 03:49 MCH 31.5 pg (27-33) 04/08/23 03:49 MCHC 32.2 g/dL (30-55) 04/08/23 03:49 RDW 13.2 % (12.1-15.1) 04/08/23 03:49 Plt Count 141 10^3/cmm (157-399) L 04/08/23 03:49 MPV 10.6 fL (7.4-10.4) H 04/08/23 03:49 Neut % (Auto) 74.7 % 04/08/23 03:49 Lymph % (Auto) 12.7 % 04/08/23 03:49 [place] % (Auto) 11.4 % 04/08/23 03:49 Eos % (Auto) 0.7 % 04/08/23 03:49 Baso % (Auto) 0.1 % 04/08/23 03:49 Neut # (Auto) 10.07 10^3/uL (1.8-7.7) H 04/08/23 03:49 Lymph # (Auto) 1.7 10^3/uL (0.8-4.8) 04/08/23 03:49 [place] # (Auto) 1.5 10^3/uL (0.2-0.9) H 04/08/23 03:49 Eos # (Auto) 0.1 10^3/uL (0.0-0.8) 04/08/23 03:49 Baso # (Auto) 0.0 10^3/uL (0.0-0.1) 04/08/23 03:49 Nucleated RBC % (auto) 0 % 04/08/23 03:49 Nucleated RBCs # 0.0 /100WBC 04/08/23 03:49 PT 13.40 SECONDS (12.1-14.9) 04/06/23 13:21 INR 0.99 (0.8-1.2) 04/06/23 13:21 Sodium 140 mmol/L (136-145) 04/08/23 03:49 Potassium 4.0 mmol/L (3.5-5.1) 04/08/23 03:49 Chloride 109 mmol/L (98-107) H 04/08/23 03:49 Carbon Dioxide 20 mmol/L (22-29) L 04/08/23 03:49 Anion Gap 15.0 (5-19) 04/08/23 03:49 BUN 20 mg/dL (8-23) 04/08/23 03:49 Creatinine 1.4 mg/dL (0.7-1.2) H 04/08/23 03:49 GFR Calculation 51.0 mL/min (90-130) L 04/08/23 03:49 Glucose 202 mg/dL (65-115) H 04/08/23 03:49 POC Glucose 229 mg/dL (70-110) H 04/08/23 06:17 Calculated Osmolality 298 mOsm/kg (285-295) H 04/08/23 03:49 Calcium 8.6 mg/dL (8.5-10.5) 04/08/23 03:49 Total Bilirubin 0.3 mg/dL (0.15-1.2) 04/06/23 13:21 AST 17 U/L (0-40) 04/06/23 13:21 ALT 16 U/L (0-41) 04/06/23 13:21 Alkaline Phosphatase 104 U/L (40-130) 04/06/23 13:21 Troponin T Baseline 24 ng/L (0-15) H 04/06/23 13:21 Troponin T 120 Minute 3918 ng/L (0-15) H 04/06/23 15:55 Delta Troponin T 3894 ABS# (0-10) H* 04/06/23 15:55 Troponin T Hi Sens 6Hr > 24879 ng/L (0-15) H 04/06/23 20:22 Troponin T Hi Sens 6Hr Delta 9976.58410 ng/L (0-12) H* 04/06/23 20:22 Total Protein 7.7 g/dL (6.6-8.7) 04/06/23 13:21 Albumin 4.7 g/dL (3.5-5.2) 04/06/23 13:21 Globulin 3.0 g/dL (1.3-4.6) 04/06/23 13:21 Procedures Performed Coronary angiography. Primary stenting proximal left anterior descending. Vitals Last Vital Signs Temp 97.6 F 04/08/23 07:19 Pulse 91 04/08/23 07:19 Resp 13 04/08/23 07:19 BP 109/78 04/08/23 07:19 Pulse Ox 95 04/08/23 07:19 O2 Del Method Room Air 04/08/23 07:19 O2 Flow Rate 2 04/06/23 13:32 Discharge Plan Discharge Patient Disposition: Home Condition: Stable Prescriptions: New aspirin 81 mg Tablet,Delayed Release (Dr/Ec) 81 mg PO DAILY Qty: 100 0RF clopidogrel 75 mg Tablet 75 mg PO DAILY Qty: 90 0RF Continued metformin 1,000 mg tablet 1,000 mg PO BID@07,20 lithium carbonate 300 mg tablet 300 mg PO BID@07,20 olanzapine [Zyprexa] 2.5 mg tablet 2.5 mg PO BEDTIME@20 Rx Instructions: take with 15mg to =17.5mg olanzapine [Zyprexa] 15 mg tablet 15 mg PO BEDTIME@20 Rx Instructions: take with 2.5mg tab to =17.5mg acetaminophen [Tylenol] 325 mg tablet 650 mg PO Q6H PRN (Reason: Pain) zolpidem [Ambien] 10 mg tablet 10 mg PO BEDTIME PRN (Reason: insomnia) omeprazole 20 mg tablet,delayed release (DR/EC) 20 mg PO DAILY@07 losartan [Cozaar] 50 mg tablet 50 mg PO DAILY@07 melatonin 3 mg capsule 9 mg PO BEDTIME loratadine [Allergy Relief (loratadine)] 10 mg tablet 10 mg PO DAILY PRN (Reason: Allergy Symptoms) fluticasone propionate 50 mcg/actuation spray,suspension 1 spray intranasal DAILY PRN (Reason: Congestion) Rx Instructions: administer into each nostril Pepto-Bismol Max St 525 mg/15 mL suspension 525 mg PO QID PRN (Reason: Diarrhea) Rx Instructions: do not exceed 8 doses in a 24 hour period polyethylene glycol 3350 17 gram/dose powder 17 g PO DAILY@07 simvastatin 20 mg tablet 20 mg PO BEDTIME@20 potassium chloride 10 mEq tablet extended release 10 meq PO DAILY@07 nystatin 100,000 unit/gram cream 1 applic TOPICAL BID@07,19 clotrimazole-betamethasone 1-0.05 % Cream 1 applic TOPICAL BID Rx Instructions: FOR 4 WEEKS topiramate 200 mg tablet 200 mg PO BEDTIME@20 Mylanta 200-200-20 mg/5 mL Suspension 10 - 20 ml PO .BETWEEN MEALS OR HS PRN (Reason: unknown) Humalog U-100 Insulin 100 unit/mL solution 5 unit SUBCUT TID@06,11,16 Rx Instructions: hold if bs is <70 PreserVision AREDS 4,296 mcg-226 mg-90 mg capsule 1 cap PO BID@07,20 Plus 29 mg iron- 1 mg Tablet 1 tab PO DAILY@07 Tresiba FlexTouch U-100 100 unit/mL (3 mL) insulin pen 25 unit SUBCUT BEDTIME metoprolol succinate 50 mg tablet extended release 24 hr 25 mg PO BID Discharge Orders: Discharge Order (Routine); Ordered 04/08/23 Ordered By: Timur Kaur Referrals: Caprice Carroll FNP [Nurse Practitioner] - 04/19/23 3:00 pm Prashanth Wu DO [Primary Care Provider] - 04/26/23 11:30 am Discharge Diet: Diabetic Discharge Activity: Resume usual activity and Limit activity as instructed Patient Instructions: Heart Attack (DC), Coronary Angioplasty (DC), Opioid Safety, Post Angiogram Home Care Instructions, Post Heart Attack Stoplight Activity Restrictions/Additional Instructions: No lifting over 5 pounds for 2 days with the right arm. Discharge Attestations Time Spent in Discharge Care*: greater than 30 min Quality Metrics Clinical Quality Measures [ Acute Myocardial Infaction { Clinical Trial Participant: No; Contraindication to aspirin: None; Aspirin prescribed; Contraindication to statin: None; Statin prescribed; Contraindication to PCI: None; PCI performed;}] Coding Level of Care Code Acute Code for Chg Fwd Diagnoses Acute anterior wall [place] I21.09 ST elevation myocardial infarction (STEMI) I21.3 Other schizophrenia F20.89 Obstructive sleep apnea G47.33 Chronic kidney disease (CKD) N18.9 Cigarette smoker F17.210 Diabetes E11.9 Ischemic cardiomyopathy I25.5
[2023-04-08] MEDS: insulin lispro 100 unit/1 mL SUBCUT (08:14)
[2023-04-08] MEDS: polyethylene glycol 3350 Pkt 17 gm PO (08:14)
[2023-04-08] MEDS: potassium chloride ER 10 mEq Tablet PO (08:15)
[2023-04-08] MEDS: aspirin 81 mg EC Tablet PO (08:15)
[2023-04-08] MEDS: metoprolol tartrate 25 mg Tablet PO (08:15)
[2023-04-08] MEDS: pantoprazole DR 40 mg Tablet PO (08:15)
[2023-04-08] MEDS: atorvastatin 40 mg Tablet 20 MG PO (08:15)
[2023-04-08 08:16] VITALS: BP 109/78
[2023-04-08] MEDS: clopidogrel 75 mg Tablet PO (08:16)
[2023-04-08] MEDS: losartan 50 mg Tablet 25 MG PO (08:16)
[2023-04-08] MEDS: lithium carbonate 300 mg Capsule PO (08:19)
[2023-04-08 08:52] VITALS: BP 109/78
--- NOTE | 2023-04-08 10:01 | PC.NURSE ---
report phoned to [facility].discharged via w[place]c to [place] [facility] [place]
== END 2023-04-08 10:02 | disposition home or self-care (01) | DRG 322 ==
LOC: ER 13:24 → CCL 13:28 → CSU 14:33
PROVIDERS: Emergency Medicine; Admitting Provider Internal Medicine Cardiovascular Disease; Emergency Provider Family Medicine; PCP Internal Medicine; Visit Provider Internal Medicine Cardiovascular Disease
PROC: 027034Z Dilation of Coronary Artery, One Artery with Drug-eluting Intraluminal Device, Percutaneous Approach (ICD-10-PCS; principal; 2023-04-06 13:30)
PROC: 027034Z Dilation of Coronary Artery, One Artery with Drug-eluting Intraluminal Device, Percutaneous Approach (ICD-10-PCS; 2023-04-06 13:30)
DX: I21.02 ST elevation (STEMI) myocardial infarction involving left anterior descending coronary artery (principal); F20.89 Other schizophrenia; I25.10 Atherosclerotic heart disease of native coronary artery without angina pectoris; E11.22 Type 2 diabetes mellitus with diabetic chronic kidney disease; N18.9 Chronic kidney disease, unspecified; G47.33 Obstructive sleep apnea (adult) (pediatric); I25.5 Ischemic cardiomyopathy; F17.210 Nicotine dependence, cigarettes, uncomplicated; Z79.84 Long term (current) use of oral hypoglycemic drugs; Z79.4 Long term (current) use of insulin
CPT/HCPCS: 36415; 36416; 80048; 80053; 82962; 84484; 85025; 85610; 93005; 93306; 93454; 96365; 96372; 96375; 99152; 99153; 99285; C1769; C1874; C1887; C1894; C9600; J1200; J1644; J1815; J2250; J3010; J3490; J7030; Q9967

== ENCOUNTER → 2023-04-19 12:51 | Outpatient (BNVA) | payer MEDICARE, MEDICAID, SELFPAY | PROVIDERS: PCP Internal Medicine; Visit Provider Nurse Practitioner Family | DX: I21.09 ST elevation (STEMI) myocardial infarction involving other coronary artery of anterior wall (principal); I25.5 Ischemic cardiomyopathy | CPT/HCPCS: 36415; 80048; 99214 ==

== ENCOUNTER 2023-05-01 09:17 | Outpatient (RCR) | payer MEDICARE, MEDICAID, SELFPAY | END 2023-05-28 23:59 | disposition home or self-care (01) | LOC: CR 09:17 | PROVIDERS: PCP Internal Medicine; Referring Provider Internal Medicine; Visit Provider Internal Medicine | DX: I21.3 ST elevation (STEMI) myocardial infarction of unspecified site (principal) | CPT/HCPCS: 93798 ==

== ENCOUNTER → 2023-05-23 07:55 | Outpatient (BNVA) | payer MEDICARE, MEDICAID, SELFPAY | PROVIDERS: PCP Internal Medicine; Visit Provider Podiatrist Foot & Ankle Surgery | DX: B35.1 Tinea unguium (principal); G62.9 Polyneuropathy, unspecified; N18.9 Chronic kidney disease, unspecified; E11.42 Type 2 diabetes mellitus with diabetic polyneuropathy; E11.29 Type 2 diabetes mellitus with other diabetic kidney complication; Z79.84 Long term (current) use of oral hypoglycemic drugs; Z79.4 Long term (current) use of insulin | CPT/HCPCS: 11721 ==

== ENCOUNTER 2023-05-31 10:50 | Outpatient (RCR) | payer MEDICARE, MEDICAID, SELFPAY | END 2023-06-27 23:59 | disposition home or self-care (01) | LOC: CR 10:50 | PROVIDERS: PCP Internal Medicine; Referring Provider Internal Medicine; Visit Provider Internal Medicine | DX: I21.09 ST elevation (STEMI) myocardial infarction involving other coronary artery of anterior wall (principal); I21.3 ST elevation (STEMI) myocardial infarction of unspecified site; I25.5 Ischemic cardiomyopathy | CPT/HCPCS: 93798 ==

== ENCOUNTER 2023-06-29 14:30 | Outpatient (RCR) | payer MEDICARE, MEDICAID, SELFPAY | END 2023-07-28 23:59 | disposition home or self-care (01) | LOC: CR 14:30 | PROVIDERS: PCP Internal Medicine; Referring Provider Internal Medicine; Visit Provider Internal Medicine | DX: I21.09 ST elevation (STEMI) myocardial infarction involving other coronary artery of anterior wall (principal); I21.3 ST elevation (STEMI) myocardial infarction of unspecified site; I25.5 Ischemic cardiomyopathy | CPT/HCPCS: 93798 ==

== ENCOUNTER 2023-06-30 07:57 | Outpatient (CLI) | payer MEDICARE, MEDICAID, SELFPAY ==
--- NOTE | 2023-06-30 08:30 | USCV_ITS ---
AbenacompaSim Age: 63 Gender: M : 1960 Exam Date: 06/30/2023 08:52 Ordering Phys: Caprice Carroll Technologist: CT Exam Location: [facility] – [place]_ Indication: SD of anterior wall BP: 110 / 77 HR: Rhythm: Sinus Technical Quality: Adequate MEASUREMENTS (Male / Female) Normal Values 2D ECHO LVOT Diameter 2.1 cm LV Ejection Fraction MOD 2C 47.2 % LV Ejection Fraction 2C AL 48.2 % LA Diameter 3.9 cm RA Systolic Volume 4C AL 31.2 ml RA Systolic Volume 4C MOD 29.5 ml LA Sys Volume AL 39.9 cm cubed LA Sys Volume Index AL 17.5 cm cubed/m squared Aorta at Sinotubular Diameter 2.5 cm IVC Diameter 1.4 cm M-MODE LA Ao Ratio MM 1.1 AV Cusp Separation MM 2.1 cm FINDINGS Left Ventricle Right Ventricle Right Atrium Left Atrium Mitral Valve Aortic Valve Tricuspid Valve Pulmonic Valve Pericardium Aorta IVC CONCLUSIONS Limited quality echocardiogram because of poor ultrasonic windows. LV systolic function is moderately reduced with EF of 35 to 40%. Moderate to severe hypokinesis of anterior and anteroseptal law[place]. Compared to prior echocardiogram from 03/2023, LV systolic function appears to have improved. Ted Pizarro MD (Electronically Signed) Final Date: 09 Jul 2023 13:37 S
== END 2023-06-30 07:58 | disposition home or self-care (01) ==
LOC: RAD 07:59
PROVIDERS: PCP Internal Medicine; Visit Provider Nurse Practitioner Family
DX: I21.09 ST elevation (STEMI) myocardial infarction involving other coronary artery of anterior wall (principal); I25.5 Ischemic cardiomyopathy
CPT/HCPCS: 93308

== ENCOUNTER → 2023-07-25 08:24 | Outpatient (BNVA) | payer MEDICARE, MEDICAID, SELFPAY | PROVIDERS: PCP Internal Medicine; Visit Provider Podiatrist Foot & Ankle Surgery | DX: B35.1 Tinea unguium (principal); G62.9 Polyneuropathy, unspecified; N18.9 Chronic kidney disease, unspecified; E11.42 Type 2 diabetes mellitus with diabetic polyneuropathy; Z79.84 Long term (current) use of oral hypoglycemic drugs | CPT/HCPCS: 11721 ==

== ENCOUNTER → 2023-07-26 12:42 | Outpatient (BNVA) | payer MEDICARE, MEDICAID, SELFPAY | PROVIDERS: PCP Internal Medicine; Visit Provider Internal Medicine Cardiovascular Disease | DX: I25.2 Old myocardial infarction (principal); I25.5 Ischemic cardiomyopathy; F20.89 Other schizophrenia; E11.22 Type 2 diabetes mellitus with diabetic chronic kidney disease; N18.9 Chronic kidney disease, unspecified; Z87.891 Personal history of nicotine dependence; Z79.4 Long term (current) use of insulin | CPT/HCPCS: 99213 ==

== ENCOUNTER 2023-07-30 08:38 | Outpatient (RCR) | payer MEDICARE, MEDICAID, SELFPAY | END 2023-08-27 23:59 | disposition home or self-care (01) | LOC: CR 08:38 | PROVIDERS: PCP Internal Medicine; Referring Provider Internal Medicine; Visit Provider Internal Medicine | DX: I21.3 ST elevation (STEMI) myocardial infarction of unspecified site (principal) | CPT/HCPCS: 93798 ==

== ENCOUNTER → 2023-10-03 08:30 | Outpatient (BNVA) | payer MEDICARE, MEDICAID, SELFPAY | PROVIDERS: PCP Internal Medicine; Visit Provider Podiatrist Foot & Ankle Surgery | DX: B35.1 Tinea unguium (principal); G62.9 Polyneuropathy, unspecified; N18.9 Chronic kidney disease, unspecified; E11.42 Type 2 diabetes mellitus with diabetic polyneuropathy; Z79.84 Long term (current) use of oral hypoglycemic drugs | CPT/HCPCS: 11721 ==

== ENCOUNTER → 2023-12-05 08:45 | Outpatient (BNVA) | payer MEDICARE, MEDICAID, SELFPAY | PROVIDERS: PCP Internal Medicine; Visit Provider Podiatrist Foot & Ankle Surgery | DX: B35.1 Tinea unguium (principal); G62.9 Polyneuropathy, unspecified; N18.9 Chronic kidney disease, unspecified; E11.42 Type 2 diabetes mellitus with diabetic polyneuropathy; Z79.84 Long term (current) use of oral hypoglycemic drugs; Z79.4 Long term (current) use of insulin | CPT/HCPCS: 11721 ==

== ENCOUNTER → 2024-01-08 14:06 | Outpatient (BNVA) | payer MEDICARE, MEDICAID, SELFPAY | PROVIDERS: PCP Internal Medicine; Visit Provider Internal Medicine Cardiovascular Disease | DX: I25.2 Old myocardial infarction (principal); I10 Essential (primary) hypertension; E78.2 Mixed hyperlipidemia; F20.89 Other schizophrenia | CPT/HCPCS: 99213 ==

== ENCOUNTER 2024-01-22 14:19 | Emergency (ER) | payer MEDICARE, MEDICAID, SELFPAY ==
[2024-01-22 14:27] VITALS: BP 123/73; PULSE 90; RESP 17; TEMP 36.8; O2SAT 96
--- NOTE | 2024-01-22 15:11 | XR_ITS ---
WS: [id number] Portable AP upright chest, 01/22/2024 Clinical Data: dyspnea/cough Comparison: Two-view chest, 06/27/2019 Findings: No nodules, masses or effusions are seen. The heart is normal. The pulmonary vascularity is not increased. No pneumonia or pneumothorax is seen. The aortic arch and descending thoracic aorta s how tortuosity. XR/XR chest 1V portable [id number] Impression: Atherosclerosis.
--- NOTE | 2024-01-22 15:19 | ED_ITS ---
HPI - Dizziness 2 General: Chief Complaint: Dizziness Stated Complaint: dizzy,confused Time Seen by Provider: 01/22/24 15:10 History of Present Illness: HPI Narrative: 63-year-old male who presents to the [facility] room with a caregiver. He is an independent setting living he states he is a little bit dizzy confused just generally does not feel well. Caregiver states his blood sugars have been slightly elevated in the 200s he is typically not that high. Associated symptoms: Denies chest pain or chills Related Data Home Medications Medication Instructions Recorded Confirmed acetaminophen 325 mg tablet 650 mg PO Q6H PRN Pain 07/08/19 01/22/24 (Tylenol) lithium carbonate 300 mg tablet 300 mg PO BID@,07/08/19 01/22/24 metformin 1,000 mg tablet 1,000 mg PO BID@,07/08/19 01/22/24 olanzapine 15 mg tablet (Zyprexa) 15 mg PO BEDTIME@07/08/19 01/22/24 olanzapine 2.5 mg tablet (Zyprexa) 2.5 mg PO BEDTIME@07/08/19 01/22/24 zolpidem 10 mg tablet (Ambien) 10 mg PO BEDTIME PRN insomnia 07/08/19 01/22/24 bismuth subsalicylate 525 mg/15 mL 525 mg PO QID PRN Diarrhea 10/07/21 01/22/24 oral suspension (Pepto-Bismol Max St) polyethylene glycol 3350 17 17 g PO DAILY@10/07/21 01/22/24 gram/dose oral powder fluticasone propionate 50 1 spray intranasal DAILY PRN 11/12/21 01/22/24 mcg/actuation nasal Congestion spray,suspension melatonin 3 mg capsule 9 mg PO BEDTIME 11/12/21 01/22/24 omeprazole 20 mg tablet,delayed 20 mg PO DAILY@04/08/22 01/22/24 release simvastatin 20 mg tablet 20 mg PO BEDTIME@04/08/22 01/22/24 aluminum-mag hydroxide-simethicone 10 - 20 ml PO .BETWEEN MEALS OR HS 04/07/23 01/22/24 200 mg-200 mg-20 mg/5 mL oral susp PRN unknown clotrimazole-betamethasone 1 1 applic topical BID 04/07/23 01/22/24 %-0.05 % topical cream insulin degludec 100 unit/mL (3 20 unit SUBCUT BEDTIME 04/07/23 01/22/24 mL) subcutaneous pen (Tresiba FlexTouch U-100 insulin) insulin lispro 100 unit/mL 5 unit SUBCUT TID@06,11,16 04/07/23 01/22/24 subcutaneous solution (Humalog U-100 Insulin) metoprolol succinate 50 mg 25 mg PO BID 04/07/23 01/22/24 tablet,extended release 24 hr potassium chloride 10 mEq 10 meq PO DAILY@07 04/07/23 01/22/24 tablet,extended release topiramate 200 mg tablet 200 mg PO BEDTIME@20 04/07/23 01/22/24 vitamins A,C,B-cpss-jviswo 4,296 1 cap PO BID@07,20 04/07/23 01/22/24 mcg-226 mg-90 mg capsule (PreserVision AREDS) losartan 50 mg tablet 50 mg PO DAILY 07/26/23 01/22/24 ketoconazole 2 % shampoo 1 applic topical DAILY 01/22/24 01/22/24 Previous Rx's Medication Instructions Recorded aspirin 81 mg tablet,delayed 81 mg PO DAILY #90 tabs 06/21/23 release clopidogrel 75 mg tablet 75 mg PO DAILY #90 tabs 06/29/23 Allergies Allergy/AdvReac Type Severity Reaction Status Date / Time No Known Allergies Allergy Verified 01/08/24 14:13 Review of Systems 2 Const: Denies: fever(s) or chills Card: Denies: chest pain Resp: Denies: dyspnea GI: Denies: abdominal pain : Denies: dysuria, urinary frequency or urinary urgency Musc: Denies: neck pain or back pain Skin/Breast: Denies: rash PFSH ED 2 PFSH: Medical History Ischemic cardiomyopathy Diabetes Chronic kidney disease (CKD) Acute anterior wall [place] [facility] Cigarette smoker Other schizophrenia Social History (Updated 01/08/24 @ 14:19 by Dinah Cobian LPN) Smoking and tobacco/nicotine status: never used tobacco/nicotine Physical Exam 2 Const: COMMON NORMALS: no acute distress GENERAL APPEARANCE: cooperative and comfortable ORIENTATION/CONSCIOUSNESS: Yes awake, Yes oriented to person, Yes oriented to place and Yes oriented to time HENMT: COMMON NORMALS: normocephalic, atraumatic and hearing grossly normal bilaterally HEAD & SCALP: normocephalic and atraumatic Resp: COMMON NORMALS: normal respiratory effort, No retractions, No use of accessory muscles and clear to auscultation bilaterally AUSCULTATION: clear to auscultation bilaterally Cardio: COMMON NORMALS: regular rate, regular rhythm and No murmurs present (Cardio) RATE: regular rate RHYTHM: regular rhythm GI: COMMON NORMALS: Soft to palpation and No hepatosplenomegaly present A USCULTATION: Yes normoactive bowel sounds PALPATION: Yes Soft to palpation, No Tenderness to palpation present (GI), No Guarding due to palpation present (GI) and Yes No hepatosplenomegaly present Extremity: COMMON NORMALS: normal to inspection, capillary refill normal, no clubbing, cyanosis or edema, no calf tenderness and no pedal edema Neuro: SENSORIUM/ORIENTATION: Yes oriented to person, Yes oriented to place and Yes oriented to time Skin: COMMON NORMALS: no rashes or lesions noted GENERAL SKIN EXAM: no rashes or lesions noted Course 2 Vital Signs: Vital signs: Vital Signs Temperature 98.3 F 01/22/24 14:27 Pulse Rate 90 01/22/24 17:32 Respiratory Rate 17 01/22/24 14:27 Blood Pressure 140/80 01/22/24 17:32 Pulse Oximetry 97 01/22/24 17:32 Oxygen Delivery Me thod Room Air 01/22/24 17:31 MDM - Dizziness Medical Decision Making No significant findings on evaluation. Blood sugars elevated but he has no focal neurologic deficits noted that we can find. His blood pressure was well- controlledHead CT is negative. There is no findings suggestive of a stroke on exam. He does have a little bit of leukocytosis but there is no sign of any specific infection. Urine is negative respiratory swab negative. He has some mild chronic kidney disease. This should be rechecked through his primary care doctor. Discharge home suspect viral upper respiratory infection supportive cares follow-up as needed Medical Records I reviewed the patient's medical records. Lab Data I reviewed the patient's lab results. 01/22/24 15:24 01/22/24 15:24 Radiology Impressions Chest X-Ray 01/22/24 15:11 Impression: Atherosclerosis. Head CT 01/22/24 15:23 IMPRESSION: Unremarkable noncontrast head CT. No acute intracranial findings. Laboratory Results WBC 14.97 10^3/uL (3.29-11.43) H 01/22/24 15: RBC 4.97 10^6/uL (3.85-5.65) 01/22/24 15: Hgb 15.70 g/dL (11.27-16.99) 01/22/24 15: Hct 47.8 % (37-53) 01/22/24 15: MCV 96.2 fl (82-101) 01/22/24 15: MCH 31.6 pg (27-33) 01/22/24 15: MCHC 32.8 g/dL (30-55) 01/22/24 15: RDW 13.1 % (12.1-15.1) 01/22/24 15: Plt Count 188 10^3/cmm (157-399) 01/22/24 15: MPV 9.8 fL (7.4-10.4) 01/22/24 15: Neut % (Auto) 93.3 % 01/22/24 15: Lymph % (Auto) 1.9 % 01/22/24: [place] % (Auto) 4.4 % 01/22/24 15: Eos % (Auto) 0.1 % 01/22/24 15: Baso % (Auto) 0.1 % 01/22/24: Neut # (Auto) 13.97 10^3/uL (1.8-7.7) H 01/22/24 15: Lymph # (Auto) 0.3 10^3/uL (0.8-4.8) L 01/22/24 15: [place] # (Auto) 0.7 10^3/uL (0.2-0.9) 01/22/24 15: Eos # (Auto) 0.0 10^3/uL (0.0-0.8) 01/22/24 15:24 Baso # (Auto) 0.0 10^3/uL (0.0-0.1) 01/22/24 15: Nucleated RBC % (auto) 0 % 01/22/24 15:24 Nucleated RBCs # 0.0 /100WBC 01/22/24 15:24 Sodium 138 mmol/L (136-145) 01/22/24 15:24 Potassium 4.3 mmol/L (3.5-5.1) 01/22/24 15:24 Chloride 104 mmol/L (98-107) 01/22/24 15:24 Carbon Dioxide 20 mmol/L (22-29) L 01/22/24 15:24 Anion Gap 18.3 (5-19) 01/22/24 15:24 BUN 33 mg/dL (8-23) H 01/22/24 15:24 Creatinine 1.7 mg/dL (0.7-1.2) H 01/22/24 15:24 GFR Calculation 40.8 mL/min (90-130) L 01/22/24 15:24 Glucose 188 mg/dL (65-115) H 01/22/24 15:24 Calculated Osmolality 298 mOsm/kg (285-295) H 01/22/24 15:24 Calcium 8.7 mg/dL (8.5-10.5) 01/22/24 15:24 Total Bilirubin 0.5 mg/dL (0.15-1.2) 01/22/24 15:24 AST 15 U/L (0-40) 01/22/24 15:24 ALT 14 U/L (0-41) 01/22/24 15:24 Alkaline Phosphatase 68 U/L (40-130) 01/22/24 15:24 Total Protein 7.0 g/dL (6.6-8.7) 01/22/24 15:24 Albumin 4.3 g/dL (3.5-5.2) 01/22/24 15:24 Globulin 2.7 g/dL (1.3-4.6) 01/22/24 15:24 Urine Color Yellow (Yellow) 01/22/24 16:17 Urine Appearance Clear (CLEAR) 01/22/24 16:17 Urine pH 5.5 (5-7) 01/22/24 16:17 Ur Specific Price 1.017 (1.005-1.030) 01/22/24 16:17 Urine Protein Trace (Negative) A 01/22/24 16:17 Urine Glucose (UA) Negative (Normal) 01/22/24 16:17 Urine Ketones Trace (Negative) 01/22/24 16:17 Urine Blood Negative (Negative) 01/22/24 16:17 Urine Nitrate Negative (Negative) 01/22/24 16:17 Urine Bilirubin Negative (Negative) 01/22/24 16:17 Urine Urobilinogen 1.0 mg/dL (Negative) 01/22/24 16:17 Ur Leukocyte Esterase Negative (Negative) 01/22/24 16:17 Urine RBC 0-2 /hpf (0-2) 01/22/24 16:17 Urine WBC 0-5 /hpf (0-5) 01/22/24 16:17 Ur Squamous Epith Cells 0-5 /hpf (0-5) 01/22/24 16:17 Amorphous Sediment Not Reportable 01/22/24 16:17 Urine Bacteria None seen /hpf (NONE) 01/22/24 16:17 Hyaline Casts 3.30 /lpf 01/22/24 16:17 Coronavirus (PCR) Negative (Negative) 01/22/24 17:27 Influenza A (PCR) Negative (Negative) 01/22/24 17:27 Influenza Type B (PCR) Negative (Negative) 01/22/24 17:27 RSV (PCR) Negative (Negative) 01/22/24 17:27 All radiology interpretation(s) finalized by discharge Discharge Plan Discharge Patient Disposition: Home Clinical Impression: Viral URI Condition: Stable Prescriptions: No Action metformin 1,000 mg tablet 1,000 mg PO BID@07,20 lithium carbonate 300 mg tablet 300 mg PO BID@,20 olanzapine [Zyprexa] 2.5 mg tablet 2.5 mg PO BEDTIME@20 Rx Instructions: take with 15mg to =17.5mg olanzapine [Zyprexa] 15 mg tablet 15 mg PO BEDTIME@20 Rx Instructions: take with 2.5mg tab to =17.5mg acetaminophen [Tylenol] 325 mg tablet 650 mg PO Q6H PRN (Reason: Pain) zolpidem [Ambien] 10 mg tablet 10 mg PO BEDTIME PRN (Reason: insomnia) omeprazole 20 mg tablet,delayed release (DR/EC) 20 mg PO DAILY@07 melatonin 3 mg capsule 9 mg PO BEDTIME fluticasone propionate 50 mcg/actuation spray,suspension 1 spray intranasal DAILY PRN (Reason: Congestion) Rx Instructions: administer into each nostril Pepto-Bismol Max St 525 mg/15 mL suspension 525 mg PO QID PRN (Reason: Diarrhea) Rx Instructions: do not exceed 8 doses in a 24 hour period polyethylene glycol 3350 17 gram/dose powder 17 g PO DAILY@07 simvastatin 20 mg tablet 20 mg PO BEDTIME@20 losartan 50 mg tablet 50 mg PO DAILY aspirin 81 mg tablet,delayed release (DR/EC) 81 mg PO DAILY Qty: 90 3RF clopidogrel 75 mg tablet 75 mg PO DAILY Qty: 90 3RF potassium chloride 10 mEq tablet extended release 10 meq PO DAILY@07 clotrimazole-betamethasone 1-0.05 % Cream 1 applic TOPICAL BID Rx Instructions: FOR 4 WEEKS topiramate 200 mg tablet 200 mg PO BEDTIME@20 alum-mag hydroxide-simeth 200-200-20 mg/5 mL Suspension 10 - 20 ml PO .BETWEEN MEALS OR HS PRN (Reason: unknown) insulin lispro [Humalog U-100 Insulin] 100 unit/mL solution 5 unit SUBCUT TID@06,11,16 Rx Instructions: hold if bs is <70 PreserVision AREDS 4,296 mcg-226 mg-90 mg capsule 1 cap PO BID@07,20 insulin degludec [Tresiba FlexTouch U-100] 100 unit/mL (3 mL) insulin pen 20 unit SUBCUT BEDTIME metoprolol succinate 50 mg tablet extended release 24 hr 25 mg PO BID ketoconazole 2 % shampoo 1 applic TOPICAL DAILY Discharge Orders: Discharge ED (Routine); Ordered 01/22/24 Ordered By: Pj Stafford Referrals: Prashanth Wu DO [Primary Care Provider] - Patient Instructions: Opioid Safety, Pain Management Activity Restrictions/Additional Instructions: Thank you for choosing [facility] for your healthcare needs today. It is very important that you follow up as instructed or that you return to the Emergency Department should you have concerns or if your condition changes or worsens in any way. You are seen in the emergency room complaint of dizziness elevated blood sugar. On exam your neuroexam was normal. Your laboratory test showed a slight elevated creatinine which is about at the level you have had in the past. Your white count was slightly elevated chest x-ray and urine were normal. We did swab you for flu and COVID. Will contact you with results when those are available. Return if you have further problems. Continue to use your sliding scale insulin to control your blood sugars. Coding Level of Care Code ED Art Handler for Sachi Rene
--- NOTE | 2024-01-22 15:23 | CT_ITS ---
WS: [id number] CT HEAD NONCONTRAST HISTORY: Dizzy confused TECHNIQUE: Contiguous axial imaging performed through the brain. Bone and soft tissue windows. Sagitt al and coronal reformats reviewed. All CT scans at [facility] use at least one of these dose optimization techniques: automated exposure control; mA and/or kV adjustment per patient size (includ es targeted exams where dose is matched to clinical indication); or iterative reconstruction. DLP: 1293.18 mGy.cm COMPARISON: None available. No acute intracranial hemorrhage, midline shift or mass effect. No atrophy or prior infarcts or herniation. Ventricles: Normal size with no hydrocephalus. Paranasal sinuses: Small mucous retention cysts in the maxillary sinuses. Mastoid air cells: Well pneumatized. Calvarium and scalp: Skull is intact with no soft tissue edema or swelling. CT/CT head wo con* [id number] IMPRESSION: Unremarkable noncontrast head CT. No acute intracranial findings.
--- NOTE | 2024-01-22 15:28 | PC.PHAR ---
patient is from [facility] with patient confirmed info off that
[2024-01-22 15:35] LABS: Basophils % 0.1 %; Eosinophils % 0.1 %; Hematocrit 47.8 % (37-53); Lymphocytes # 0.3 10^3/uL (0.8-4.8); Lymphocytes % 1.9 %; Mean Corpuscular HGB Conc 32.8 g/dL (30-55); Mean Corpuscular Hemoglobin 31.6 pg (27-33); Mean Corpuscular Volume 96.2 fl (82-101); Mean Platelet Volume 9.8 fL (7.4-10.4); Monocytes # 0.7 10^3/uL (0.2-0.9); Monocytes % 4.4 %; Neutrophils # 13.97 10^3/uL (1.8-7.7); Neutrophils % 93.3 %; Nucleated Red Blood Cells % 0 %; Platelet Count 188 10^3/cmm (157-399); Red Blood Count 4.97 10^6/uL (3.85-5.65); Red Cell Distribution Width 13.1 % (12.1-15.1); White Blood Count 14.97 10^3/uL (3.29-11.43)
[2024-01-22 15:54] VITALS: BP 119/71; PULSE 90; O2SAT 97
[2024-01-22 16:06] LABS: Alanine Aminotransferase 14 U/L (0-41); Albumin Level 4.3 g/dL (3.5-5.2); Alkaline Phosphatase 68 U/L (40-130); Anion Gap 18.3 (5-19); Aspartate Amino Transferase 15 U/L (0-40); Blood Urea Nitrogen 33 mg/dL (8-23); Calcium 8.7 mg/dL (8.5-10.5); Carbon Dioxide 20 mmol/L (22-29); Chloride 104 mmol/L (98-107); Creatinine Clr Calc Pharmacy 52.9295; Globulin 2.7 g/dL (1.3-4.6); Glomerular Filtration Rate 40.8 mL/min (90-130); Glucose 188 mg/dL (65-115); Osmolality Calculated 298 mOsm/kg (285-295); Potassium 4.3 mmol/L (3.5-5.1); Sodium 138 mmol/L (136-145); Total Bilirubin 0.5 mg/dL (0.15-1.2)
[2024-01-22 16:47] LABS: Bilirubin Urine Negative (Negative); Blood Urine Negative (Negative); Glucose Urine UA Negative (Normal); Ketones Urine Trace (Negative); Leukocyte Esterase Urine Negative (Negative); Nitrate Urine Negative (Negative); Protein Urine Trace (Negative); Specific Gravity, Urine 1.017 (1.005-1.030); Urine Appearance Clear (CLEAR); Urine Color Yellow (Yellow); pH Urine 5.5 (5-7)
[2024-01-22 16:50] LABS: Add Urine Microscopic? YES; Bacteria Urine None Seen /hpf; RBC Urine 0-2 /hpf (0-2); Squamous Epithelial Cell Urine 0-5 /hpf (0-5); WBC Urine 0-5 /hpf (0-5)
[2024-01-22 17:31] VITALS: BP 140/80; PULSE 90; O2SAT 97
[2024-01-22 17:32] VITALS: BP 140/80; PULSE 90; O2SAT 97
[2024-01-22 18:59] LABS: Covid PCR NEGATIVE (Negative); Influenza A NEGATIVE (Negative); Influenza B NEGATIVE (Negative); Respiratory Syncytial Virus Ce NEGATIVE (Negative)
== END 2024-01-22 17:35 | disposition home or self-care (01) ==
PROVIDERS: Emergency Provider Family Medicine; PCP Internal Medicine
DX: J06.9 Acute upper respiratory infection, unspecified (principal); Z79.84 Long term (current) use of oral hypoglycemic drugs; Z79.82 Long term (current) use of aspirin; Z79.02 Long term (current) use of antithrombotics/antiplatelets; Z79.4 Long term (current) use of insulin; Z11.52 Encounter for screening for COVID-19; E11.22 Type 2 diabetes mellitus with diabetic chronic kidney disease; N18.9 Chronic kidney disease, unspecified
CPT/HCPCS: 0241U; 70450; 71045; 80053; 81001; 85025; 99284

== ENCOUNTER → 2024-02-06 09:15 | Outpatient (BNVA) | payer MEDICARE, MEDICAID, SELFPAY | PROVIDERS: PCP Internal Medicine; Visit Provider Podiatrist Foot & Ankle Surgery | DX: B35.1 Tinea unguium (principal); G62.9 Polyneuropathy, unspecified; N18.9 Chronic kidney disease, unspecified; E11.42 Type 2 diabetes mellitus with diabetic polyneuropathy; Z79.84 Long term (current) use of oral hypoglycemic drugs; Z79.4 Long term (current) use of insulin | CPT/HCPCS: 11721 ==

== ENCOUNTER → 2024-03-20 14:31 | Outpatient (BNVA) | payer MEDICARE, MEDICAID, SELFPAY | PROVIDERS: PCP Internal Medicine; Visit Provider Podiatrist Foot & Ankle Surgery | DX: E11.621 Type 2 diabetes mellitus with foot ulcer; L97.512 Non-pressure chronic ulcer of other part of right foot with fat layer exposed; B35.1 Tinea unguium; G62.9 Polyneuropathy, unspecified; E11.42 Type 2 diabetes mellitus with diabetic polyneuropathy; N18.9 Chronic kidney disease, unspecified; Z79.4 Long term (current) use of insulin; Z79.84 Long term (current) use of oral hypoglycemic drugs; M79.671 Pain in right foot | CPT/HCPCS: 11042; 73630; 87070; 87075; 87205; A6219 ==

== ENCOUNTER → 2024-03-28 09:37 | Outpatient (BNVA) | payer MEDICARE, MEDICAID, SELFPAY | PROVIDERS: PCP Internal Medicine; Visit Provider Podiatrist Foot & Ankle Surgery | DX: B35.1 Tinea unguium (principal); G62.9 Polyneuropathy, unspecified; N18.9 Chronic kidney disease, unspecified; E11.621 Type 2 diabetes mellitus with foot ulcer; L97.512 Non-pressure chronic ulcer of other part of right foot with fat layer exposed; E11.42 Type 2 diabetes mellitus with diabetic polyneuropathy; Z79.84 Long term (current) use of oral hypoglycemic drugs; Z79.4 Long term (current) use of insulin | CPT/HCPCS: 99213 ==

== ENCOUNTER → 2024-04-11 10:04 | Outpatient (BNVA) | payer MEDICARE, MEDICAID, SELFPAY | PROVIDERS: PCP Electrodiagnostic Medicine; Visit Provider Podiatrist Foot & Ankle Surgery | DX: E11.621 Type 2 diabetes mellitus with foot ulcer (principal); L97.512 Non-pressure chronic ulcer of other part of right foot with fat layer exposed; E11.8 Type 2 diabetes mellitus with unspecified complications; B35.1 Tinea unguium; G62.9 Polyneuropathy, unspecified; E11.9 Type 2 diabetes mellitus without complications; N18.9 Chronic kidney disease, unspecified; E11.42 Type 2 diabetes mellitus with diabetic polyneuropathy; Z79.4 Long term (current) use of insulin; Z79.84 Long term (current) use of oral hypoglycemic drugs | CPT/HCPCS: 11042 ==

== ENCOUNTER 2024-04-25 10:46 | Outpatient (CLI) | payer MEDICARE, MEDICAID, SELFPAY | END 2024-04-25 10:47 | disposition home or self-care (01) | LOC: SPT 10:56 | PROVIDERS: PCP Electrodiagnostic Medicine; Visit Provider Podiatrist Foot & Ankle Surgery | DX: Z46.89 Encounter for fitting and adjustment of other specified devices (principal); E08.621 Diabetes mellitus due to underlying condition with foot ulcer; L97.502 Non-pressure chronic ulcer of other part of unspecified foot with fat layer exposed | CPT/HCPCS: 97760; L4361 ==

== ENCOUNTER → 2024-05-02 10:45 | Outpatient (BNVA) | payer MEDICARE, SELFPAY | PROVIDERS: PCP Electrodiagnostic Medicine; Visit Provider Podiatrist Foot & Ankle Surgery | DX: B35.1 Tinea unguium (principal); G62.9 Polyneuropathy, unspecified; N18.9 Chronic kidney disease, unspecified; E11.621 Type 2 diabetes mellitus with foot ulcer; L97.512 Non-pressure chronic ulcer of other part of right foot with fat layer exposed; E11.42 Type 2 diabetes mellitus with diabetic polyneuropathy; Z79.84 Long term (current) use of oral hypoglycemic drugs | CPT/HCPCS: 99213 ==

== ENCOUNTER → 2024-05-09 11:02 | Outpatient (BNVA) | payer MEDICARE, OTHER, SELFPAY | PROVIDERS: PCP Electrodiagnostic Medicine; Visit Provider Podiatrist Foot & Ankle Surgery | DX: E11.621 Type 2 diabetes mellitus with foot ulcer (principal); L97.512 Non-pressure chronic ulcer of other part of right foot with fat layer exposed; B35.1 Tinea unguium; G62.9 Polyneuropathy, unspecified; N18.9 Chronic kidney disease, unspecified; E11.42 Type 2 diabetes mellitus with diabetic polyneuropathy; Z79.4 Long term (current) use of insulin; Z79.84 Long term (current) use of oral hypoglycemic drugs | CPT/HCPCS: 99213 ==

== ENCOUNTER → 2024-05-16 09:20 | Outpatient (BNVA) | payer MEDICARE, SELFPAY | PROVIDERS: PCP Electrodiagnostic Medicine; Visit Provider Thoracic Surgery (Cardiothoracic Vascular Surgery) | DX: I96 Gangrene, not elsewhere classified (principal); L89.892 Pressure ulcer of other site, stage 2 | CPT/HCPCS: 97597; 99203 ==

== ENCOUNTER → 2024-05-23 09:35 | Outpatient (BNVA) | payer MEDICARE, SELFPAY | PROVIDERS: PCP Electrodiagnostic Medicine; Visit Provider Thoracic Surgery (Cardiothoracic Vascular Surgery) | DX: E11.52 Type 2 diabetes mellitus with diabetic peripheral angiopathy with gangrene (principal); E11.621 Type 2 diabetes mellitus with foot ulcer; L89.892 Pressure ulcer of other site, stage 2 | CPT/HCPCS: 97597 ==

== ENCOUNTER → 2024-05-30 12:58 | Outpatient (BNVA) | payer MEDICARE, SELFPAY | PROVIDERS: PCP Electrodiagnostic Medicine; Visit Provider Thoracic Surgery (Cardiothoracic Vascular Surgery) | DX: E11.52 Type 2 diabetes mellitus with diabetic peripheral angiopathy with gangrene (principal); E11.621 Type 2 diabetes mellitus with foot ulcer; L89.892 Pressure ulcer of other site, stage 2 | CPT/HCPCS: 97597; A6210; A6248 ==

== ENCOUNTER → 2024-06-06 10:41 | Outpatient (BNVA) | payer MEDICARE, SELFPAY | PROVIDERS: PCP Electrodiagnostic Medicine; Visit Provider Thoracic Surgery (Cardiothoracic Vascular Surgery) | DX: I96 Gangrene, not elsewhere classified (principal); L89.892 Pressure ulcer of other site, stage 2 | CPT/HCPCS: 97597; A6210 ==

== ENCOUNTER → 2024-06-13 10:11 | Outpatient (BNVA) | payer MEDICARE, SELFPAY | PROVIDERS: PCP Electrodiagnostic Medicine; Visit Provider Podiatrist Foot & Ankle Surgery | DX: E11.621 Type 2 diabetes mellitus with foot ulcer (principal); L97.512 Non-pressure chronic ulcer of other part of right foot with fat layer exposed; B35.1 Tinea unguium; G62.9 Polyneuropathy, unspecified; E11.42 Type 2 diabetes mellitus with diabetic polyneuropathy; N18.9 Chronic kidney disease, unspecified; M20.31 Hallux varus (acquired), right foot; Z79.84 Long term (current) use of oral hypoglycemic drugs; Z79.4 Long term (current) use of insulin | CPT/HCPCS: 28011; 99214; A6219; A6222 ==

== ENCOUNTER 2024-06-16 18:55 | Emergency (ER) | payer MEDICARE, MEDICAID, SELFPAY ==
--- NOTE | 2024-06-16 18:57 | XRR_ITS ---
PROCEDURE INFORMATION: Exam: XR Right Foot Exam date and time: 06/16/2024 7:14 PM Age: 64 years old Clinical indication: Pain; Toes; Prior surgery; Surgery date: 3-7 days post-operative; Surgery type: Right great toe tendon release 3 days ago; Additional info: Toe pain TECHNIQUE: Imaging protocol: Radiologic exam of the right foot. Views: 3 or more views. COMPARISON: CR XR foot RT min 3V* [id number] 03/20/2024 2:39 PM FINDINGS: Bones/joints: No evidence of acute fracture or subluxation. Tarsometatarsal alignment is maintained. Plantar calcaneal spur. If there is concern for plantar fascial pathology, follow-up outpatient MRI may be helpful. Soft tissues: Soft tissue edema/wound of the great toe. XR/XR foot RT min 3V* [id number] IMPRESSION: 1. Soft tissue edema/wound without evidence of acute osseous erosion, fracture or subluxation.
[2024-06-16 18:59] VITALS: BP 145/78; PULSE 78; RESP 18; TEMP 36.6; O2SAT 98
[2024-06-16 19:40] LABS: Basophils % 0.1 %; Eosinophils # 0.9 10^3/uL (0.0-0.8); Eosinophils % 6.2 %; Hematocrit 43.2 % (37-53); Lymphocytes # 1.6 10^3/uL (0.8-4.8); Lymphocytes % 11.1 %; Mean Corpuscular HGB Conc 32.6 g/dL (30-55); Mean Corpuscular Hemoglobin 32.1 pg (27-33); Mean Corpuscular Volume 98.4 fl (82-101); Monocytes # 1.2 10^3/uL (0.2-0.9); Monocytes % 8.2 %; Neutrophils # 10.74 10^3/uL (1.8-7.7); Neutrophils % 74.2 %; Nucleated Red Blood Cells % 0 %; Platelet Count 162 10^3/cmm (157-399); Red Blood Count 4.39 10^6/uL (3.85-5.65); Red Cell Distribution Width 12.9 % (12.1-15.1); White Blood Count 14.47 10^3/uL (3.29-11.43)
[2024-06-16 19:46] LABS: Erythrocyte Sedimentation Rate 2 mm/hr (0-10)
--- NOTE | 2024-06-16 19:53 | W.ED.EXTPRO ---
HPI - Extremity Problem General: Chief complaint: Extremity Problem,Nontraumatic Stated complaint: R big toe pain Time Seen by Provider: 06/16/24 19:14 Source: patient Mode of arrival: ambulatory Limitations: no limitations History of Present Illness: Patient is a 64-year-old male who presents emergency department complaining of right great toe pain the past 3 days. On 06/13, had tendon release procedure performed on the same toe. Patient states pain and swelling have increased, he is also noticed redness. States symptoms are only really worsened when he walks, also notes feeling nauseous and that is blood sugars have been elevated at home. No fever, vomiting, red streaking, or other symptoms noted at this time. MD Complaint: extremity pain Onset (ago): day(s) Pain Consistency: constant Location: right and toe (big toe) Radiation: proximal Exacerbating factors: weight bearing and walking Associated symptoms: Deny chest pain, fever(s) or rash Context: recent surgery/procedure (hallux tenodesis ) Related Data Home Medications ?Medication ?Instructions ?Recorded ?Confirmed acetaminophen 325 mg tablet 650 mg PO Q6H PRN Pain 07/08/19 06/13/24 (Tylenol) lithium carbonate 300 mg tablet 300 mg PO BID@07/08/19 06/13/24 metformin 1,000 mg tablet 1,000 mg PO BID@,07/08/19 06/13/24 olanzapine 15 mg tablet (Zyprexa) 15 mg PO BEDTIME@07/08/19 06/13/24 olanzapine 2.5 mg tablet (Zyprexa) 2.5 mg PO BEDTIME@07/08/19 06/13/24 zolpidem 10 mg tablet (Ambien) 10 mg PO BEDTIME PRN insomnia 07/08/19 06/13/24 bismuth subsalicylate 525 mg/15 mL 525 mg PO QID PRN Diarrhea 10/07/21 06/13/24 oral suspension (Pepto-Bismol Max St) polyethylene glycol 3350 17 17 g PO DAILY@07 10/07/21 06/13/24 gram/dose oral powder fluticasone propionate 50 1 spray intranasal DAILY PRN 11/12/21 06/13/24 mcg/actuation nasal Congestion spray,suspension melatonin 3 mg capsule 9 mg PO BEDTIME 11/12/21 06/13/24 omeprazole 20 mg tablet,delayed 20 mg PO DAILY@07 04/08/22 06/13/24 release simvastatin 20 mg tablet 20 mg PO BEDTIME@04/08/22 06/13/24 aluminum-mag hydroxide-simethicone 10 - 20 ml PO .BETWEEN MEALS OR HS 04/07/23 06/13/24 200 mg-200 mg-20 mg/5 mL oral susp PRN unknown clotrimazole-betamethasone 1 1 applic topical BID 04/07/23 06/13/24 %-0.05 % topical cream insulin degludec 100 unit/mL (3 20 unit SUBCUT BEDTIME 04/07/23 06/13/24 mL) subcutaneous pen (Tresiba FlexTouch U-100 insulin) insulin lispro 100 unit/mL 5 unit SUBCUT TID@06,11,16 04/07/23 06/13/24 subcutaneous solution (Humalog U-100 Insulin) metoprolol succinate 50 mg 25 mg PO BID 04/07/23 06/13/24 tablet,extended release 24 hr potassium chloride 10 mEq 10 meq PO DAILY@07 04/07/23 06/13/24 tablet,extended release topiramate 200 mg tablet 200 mg PO BEDTIME@04/07/23 06/13/24 vitamins A,C,M-bmoa-iseplx 4,296 1 cap PO BID@04/07/23 06/13/24 mcg-226 mg-90 mg capsule (PreserVision AREDS) losartan 50 mg tablet 50 mg PO DAILY 07/26/23 06/13/24 ketoconazole 2 % shampoo 1 applic topical DAILY 01/22/24 06/13/24 Previous Rx's ?Medication ?Instructions ?Recorded clopidogrel 75 mg tablet 75 mg PO DAILY #90 tabs 06/29/23 aspirin 81 mg tablet,delayed 81 mg PO DAILY #90 tabs 03/28/24 release CAM boot #1 ea 04/25/24 diabetic shoes with 3 inserts #1 ea 06/13/24 cephalexin 500 mg capsule 500 mg PO BID 7 days #14 caps 06/16/24 Allergies Allergy/AdvReac Type Severity Reaction Status Date / Time No Known Allergies Allergy Verified 06/16/24 19:03 Review of Systems General: Reports: 10 or more systems reviewed and unremarkable except in HPI and below Const: Denies: fever(s) or chills Card: Denies: chest pain Resp: Denies: dyspnea or productive cough GI: Reports: nausea; Denies: abdominal pain, vomiting or diarrhea : Denies: flank pain Musc: Reports: extremity pain, extremity swelling and joint redness; Denies: neck pain, back pain, joint pain, joint swelling, joint warmth, limited range of motion or muscle weakness Skin/Breast: Denies: rash Neuro: Denies: headache(s), numbness in extremities or weakness in extremities PFSH ED PFSH: Medical History Ischemic cardiomyopathy Diabetes Chronic kidney disease (CKD) Acute anterior wall [facility] Cigarette smoker Other schizophrenia Social History Smoking and tobacco/nicotine status: former use of tobacco/nicotine Physical Exam Const: COMMON NORMALS: no acute distress, patient oriented x3, no limitations, healthy appearing, alert and well nourished HENMT: COMMON NORMALS: normocephalic and atraumatic HEAD & SCALP: normocephalic and atraumatic Neck/C-Spine: COMMON NORMALS: full ROM, supple and no meningeal signs Resp: COMMON NORMALS: normal respiratory effort, No use of accessory muscles and clear to auscultation bilaterally AUSCULTATION: clear to auscultation bilaterally Cardio: COMMON NORMALS: regular rate and regular rhythm RATE: regular rate RHYTHM: regular rhythm Extremity: COMMON NORMALS: full ROM and capillary refill normal NARRATIVE EXTREMITY EXAM: Mild swelling noted to right great toe, is not significantly tender to palpation. Good sensations, no other neurovascular deficits appreciated at this time. 2+ DP/PT pulses. Neuro: COMMON NORMALS: patient oriented x3, moves all extremities, no focal motor deficits and no sensory deficits noted SENSORIUM/ORIENTATION: Yes alert MENINGEAL SIGNS: Yes no meningeal signs Skin: NARRATIVE SKIN EXAM: Small ulcer noted to right great toe. There is no significant erythema or red streaking noted of the right foot. Suture from previous procedure. Course Vital Signs: Vital signs: Vital Signs Temperature 97.8 F 06/16/24 18:59 Pulse Rate 78 06/16/24 18:59 Respiratory Rate 18 06/16/24 18:59 Blood Pressure 145/78 06/16/24 18:59 Pulse Oximetry 98 06/16/24 18:59 Oxygen Delivery Me thod Room Air 06/16/24 18:59 MDM - Extremity (Nontraumatic) Medical Decision Making Patient presenting for right great toe pain. On had procedure with Dr. Cunningham for tendon release. Was complaining of pain, redness, and swelling. On exam, overall was unremarkable with mild swelling noted and no significant reproducible tenderness to palpation. His vitals have been stable throughout ED stay. Initially I reviewed pictures of patient's toe with Dr. Cunningham, recommending lab workup and if this is normal to continue plan for outpatient follow-up and begin Keflex. Other than mild elevation in the white count, labs were unremarkable and x-ray did not show any osseous findings. Patient stating he had only taken Tylenol once on , encouraged him to begin alternating Motrin and Tylenol and to take the Keflex as prescribed. Gave him strict return precautions to the emergency department, of which she verbalized understanding. Lab Data 06/16/24 19:31 Radiology Impressions Foot X-Ray 06/16/24 18:57 IMPRESSION: 1. Soft tissue edema/wound without evidence of acute osseous erosion, fracture or subluxation. Laboratory Results WBC 14.47 10^3/uL (3.29-11.43) H 06/16/24 19:31 RBC 4.39 10^6/uL (3.85-5.65) 06/16/24 19:31 Hgb 14.10 g/dL (11.27-16.99) 06/16/24 19: Hct 43.2 % (37-53) 06/16/24 19: MCV 98.4 fl (82-101) 06/16/24 19: MCH 32.1 pg (27-33) 06/16/24 19: MCHC 32.6 g/dL (30-55) 06/16/24 19: RDW 12.9 % (12.1-15.1) 06/16/24 19:31 Plt Count 162 10^3/cmm (157-399) 06/16/24 19: MPV 10.0 fL (7.4-10.4) 06/16/24 19: Neut % (Auto) 74.2 % 06/16/24 19: Lymph % (Auto) 11.1 % 06/16/24 19: Mills % (Auto) 8.2 % 06/16/24 19: Eos % (Auto) 6.2 % 06/16/24 19: Baso % (Auto) 0.1 % 06/16/24 19: Neut # (Auto) 10.74 10^3/uL (1.8-7.7) H 06/16/24 19: Lymph # (Auto) 1.6 10^3/uL (0.8-4.8) 06/16/24 19: Mills # (Auto) 1.2 10^3/uL (0.2-0.9) H 06/16/24 19: Eos # (Auto) 0.9 10^3/uL (0.0-0.8) H 06/16/24: Baso # (Auto) 0.0 10^3/uL (0.0-0.1) 06/16/24: Nucleated RBC % (auto) 0 % 06/16/24: Nucleated RBCs # 0.0 /100WBC 06/16/24: ESR 2 mm/hr (0-10) 06/16/24: C-Reactive Protein 6.1 mg/L (0.0-4.9) H 06/16/24 19:31 All radiology interpretation(s) finalized by discharge Discharge Plan Discharge Patient Disposition: Home Clinical Impression: Post-op pain Great toe pain Qualifiers: Laterality: right Qualified Code(s): M79.674 - Pain in right toe(s) Condition: Stable Prescriptions: New cephalexin 500 mg capsule 500 mg PO BID 7 Days Qty: 14 0RF No Action metformin 1,000 mg tablet 1,000 mg PO BID@, lithium carbonate 300 mg tablet 300 mg PO BID@,20 olanzapine [Zyprexa] 2.5 mg tablet 2.5 mg PO BEDTIME@20 Rx Instructions: take with 15mg to =17.5mg olanzapine [Zyprexa] 15 mg tablet 15 mg PO BEDTIME@20 Rx Instructions: take with 2.5mg tab to =17.5mg acetaminophen [Tylenol] 325 mg tablet 650 mg PO Q6H PRN (Reason: Pain) zolpidem [Ambien] 10 mg tablet 10 mg PO BEDTIME PRN (Reason: insomnia) omeprazole 20 mg tablet,delayed release (DR/EC) 20 mg PO DAILY@07 melatonin 3 mg capsule 9 mg PO BEDTIME fluticasone propionate 50 mcg/actuation spray,suspension 1 spray intranasal DAILY PRN (Reason: Congestion) Rx Instructions: administer into each nostril Pepto-Bismol Max St 525 mg/15 mL suspension 525 mg PO QID PRN (Reason: Diarrhea) Rx Instructions: do not exceed 8 doses in a 24 hour period polyethylene glycol 3350 17 gram/dose powder 17 g PO DAILY@07 simvastatin 20 mg tablet 20 mg PO BEDTIME@20 losartan 50 mg tablet 50 mg PO DAILY (DME) diabetic shoes with 3 inserts See Rx Instructions .Route .MEDSUPPLY Qty: 1 0RF Rx Instructions: As directed to [facility] (DME) CAM boot See Rx Instructions .Route .MEDSUPPLY Qty: 1 0RF Rx Instructions: As directed clopidogrel 75 mg tablet 75 mg PO DAILY Qty: 90 3RF aspirin 81 mg tablet,delayed release (DR/EC) 81 mg PO DAILY Qty: 90 3RF potassium chloride 10 mEq tablet extended release 10 meq PO DAILY@07 clotrimazole-betamethasone 1-0.05 % Cream 1 applic TOPICAL BID Rx Instructions: FOR 4 WEEKS topiramate 200 mg tablet 200 mg PO BEDTIME@20 alum-mag hydroxide-simeth 200-200-20 mg/5 mL Suspension 10 - 20 ml PO .BETWEEN MEALS OR HS PRN (Reason: unknown) insulin lispro [Humalog U-100 Insulin] 100 unit/mL solution 5 unit SUBCUT TID@06,11,16 Rx Instructions: hold if bs is <70 PreserVision AREDS 4,296 mcg-226 mg-90 mg capsule 1 cap PO BID@07,20 insulin degludec [Tresiba FlexTouch U-100] 100 unit/mL (3 mL) insulin pen 20 unit SUBCUT BEDTIME metoprolol succinate 50 mg tablet extended release 24 hr 25 mg PO BID ketoconazole 2 % shampoo 1 applic TOPICAL DAILY Discharge Orders: Discharge ED (Routine); Ordered 06/16/24 Ordered By: Konstantin Batres Referrals: Patrick Perez DO [Primary Care Provider] - Activity Restrictions/Additional Instructions: Please take the Keflex as prescribed. Alternate Motrin and Tylenol for your pain. Continue wound dressing as you have been. Follow-up with Dr. Cunningham later this week as we discussed. Please return with any fever, persistent vomiting, or other signs of illness. Print Language: Japanese Coding Level of Care Code ED Smt Technician for Sachi Rene
[2024-06-16 19:56] LABS: C Reactive Protein 6.1 mg/L (0.0-4.9)
[2024-06-16] MEDS: cephALEXin 500 mg Capsule PO (20:13)
[2024-06-16 20:23] VITALS: BP 148/91; PULSE 84; O2SAT 97
== END 2024-06-16 20:24 | disposition home or self-care (01) ==
PROVIDERS: Emergency Provider Physician Assistant; PCP Electrodiagnostic Medicine
DX: M79.674 Pain in right toe(s) (principal); G89.18 Other acute postprocedural pain; Z79.4 Long term (current) use of insulin; Z79.82 Long term (current) use of aspirin; Z79.02 Long term (current) use of antithrombotics/antiplatelets; Z87.891 Personal history of nicotine dependence; E11.22 Type 2 diabetes mellitus with diabetic chronic kidney disease; N18.9 Chronic kidney disease, unspecified
CPT/HCPCS: 36415; 73630; 85025; 85651; 86140; 99284; J9999

== ENCOUNTER → 2024-06-20 13:08 | Outpatient (BNVA) | payer MEDICARE, MEDICAID, SELFPAY | PROVIDERS: PCP Electrodiagnostic Medicine; Visit Provider Podiatrist Foot & Ankle Surgery | DX: E11.621 Type 2 diabetes mellitus with foot ulcer (principal); L97.512 Non-pressure chronic ulcer of other part of right foot with fat layer exposed; B35.1 Tinea unguium; G62.9 Polyneuropathy, unspecified; E11.9 Type 2 diabetes mellitus without complications; N18.9 Chronic kidney disease, unspecified; M20.31 Hallux varus (acquired), right foot; E11.42 Type 2 diabetes mellitus with diabetic polyneuropathy; Z79.84 Long term (current) use of oral hypoglycemic drugs; Z79.4 Long term (current) use of insulin | CPT/HCPCS: 11042; 99213 ==

== ENCOUNTER → 2024-06-27 13:20 | Outpatient (BNVA) | payer MEDICARE, MEDICAID, SELFPAY | PROVIDERS: PCP Electrodiagnostic Medicine; Visit Provider Podiatrist Foot & Ankle Surgery | DX: B35.1 Tinea unguium (principal); G62.9 Polyneuropathy, unspecified; N18.9 Chronic kidney disease, unspecified; M20.31 Hallux varus (acquired), right foot; E11.621 Type 2 diabetes mellitus with foot ulcer; L97.512 Non-pressure chronic ulcer of other part of right foot with fat layer exposed; E11.42 Type 2 diabetes mellitus with diabetic polyneuropathy; Z79.84 Long term (current) use of oral hypoglycemic drugs; Z79.4 Long term (current) use of insulin | CPT/HCPCS: 11042 ==

== ENCOUNTER → 2024-07-04 15:02 | Outpatient (BNVA) | payer MEDICARE, MEDICAID, SELFPAY | PROVIDERS: PCP Electrodiagnostic Medicine; Visit Provider Podiatrist Foot & Ankle Surgery | DX: E11.621 Type 2 diabetes mellitus with foot ulcer (principal); L97.512 Non-pressure chronic ulcer of other part of right foot with fat layer exposed; B35.1 Tinea unguium; G62.9 Polyneuropathy, unspecified; E11.9 Type 2 diabetes mellitus without complications; N18.9 Chronic kidney disease, unspecified; M20.31 Hallux varus (acquired), right foot; E11.42 Type 2 diabetes mellitus with diabetic polyneuropathy; Z79.84 Long term (current) use of oral hypoglycemic drugs | CPT/HCPCS: 99024 ==

== ENCOUNTER → 2024-07-09 10:54 | Outpatient (BNVA) | payer MEDICARE, MEDICAID, SELFPAY | PROVIDERS: PCP Electrodiagnostic Medicine; Visit Provider Nurse Practitioner Family | DX: I10 Essential (primary) hypertension (principal); E78.2 Mixed hyperlipidemia; F20.9 Schizophrenia, unspecified; Z79.01 Long term (current) use of anticoagulants; Z79.82 Long term (current) use of aspirin; Z95.5 Presence of coronary angioplasty implant and graft; Z87.891 Personal history of nicotine dependence; I25.2 Old myocardial infarction; I50.20 Unspecified systolic (congestive) heart failure; R09.89 Other specified symptoms and signs involving the circulatory and respiratory systems | CPT/HCPCS: 99214 ==

== ENCOUNTER → 2024-07-18 15:02 | Outpatient (BNVA) | payer MEDICARE, MEDICAID, SELFPAY | PROVIDERS: PCP Electrodiagnostic Medicine; Visit Provider Podiatrist Foot & Ankle Surgery | DX: B35.1 Tinea unguium (principal); G62.9 Polyneuropathy, unspecified; N18.9 Chronic kidney disease, unspecified; M20.31 Hallux varus (acquired), right foot; E11.621 Type 2 diabetes mellitus with foot ulcer; L97.512 Non-pressure chronic ulcer of other part of right foot with fat layer exposed; Z79.84 Long term (current) use of oral hypoglycemic drugs; Z79.4 Long term (current) use of insulin; E11.69 Type 2 diabetes mellitus with other specified complication | CPT/HCPCS: 99213 ==

== ENCOUNTER 2024-07-19 13:32 | Outpatient (CLI) | payer MEDICARE, MEDICAID, SELFPAY ==
--- NOTE | 2024-07-19 14:00 | USCV_ITS ---
Sim Angeles Age: 64 Gender: M : 1960 Exam Date: 07/19/2024 14:18 Ordering Phys: Alva Allen NP Technologist: LYNDSEY Exam Location: [facility] – [place] Indication: stenosis Risk Factors: Previous Vascular Surgery: Right Brachial BP: / Left Brachial BP: / Right Left Velocity (cm/s) Spectral Plaque Velocity (cm/s) Spectral Plaque Syst/Diast Broadening Syst/Diast Broadening 67.20/ 11.50 Prox CCA 64.00 / 10.60 64.60/ 16.70 Mid CCA 58.90 / 12.60 49.10/ 10.20 Distal CCA 57.30 / 14.30 36.40/ 11.70 Prox ICA 26.60 / 11.30 39.10/ 14.60 Mid ICA 43.60 / 18.70 38.90/ 12.60 Distal ICA 41.60 / 15.50 64.60 ECA 41.40 0.80 ICA/CCA 0.80 Antegrade Vertebral Antegrade 27.40/ 6.10 cm/s 29.20/ 9.60 cm/s Tri Subclavian Tri 56.60 57.30 CONCLUSIONS Right ICA stenosis <50%. Moderate atheromatous plaque right carotid bulb/ICA. Left ICA stenosis <50%. Moderate atheromatous plaque left carotid bulb/ICA. Normal antegrade Doppler flow noted in the right vertebral artery. Normal antegrade Doppler flow noted in the left vertebral artery. Tony Akers MD (Electronically Signed) Final Date: 21 Jul 2024 17:21 S
== END 2024-07-19 13:33 | disposition home or self-care (01) ==
PROVIDERS: PCP Electrodiagnostic Medicine; Visit Provider Nurse Practitioner Family
DX: R09.89 Other specified symptoms and signs involving the circulatory and respiratory systems (principal); E78.2 Mixed hyperlipidemia; I65.23 Occlusion and stenosis of bilateral carotid arteries
CPT/HCPCS: 93880

== ENCOUNTER → 2024-08-01 15:13 | Outpatient (BNVA) | payer MEDICARE, MEDICAID, SELFPAY | PROVIDERS: PCP Electrodiagnostic Medicine; Visit Provider Podiatrist Foot & Ankle Surgery | DX: E11.621 Type 2 diabetes mellitus with foot ulcer (principal); L97.512 Non-pressure chronic ulcer of other part of right foot with fat layer exposed; B35.1 Tinea unguium; G62.9 Polyneuropathy, unspecified; E11.9 Type 2 diabetes mellitus without complications; N18.9 Chronic kidney disease, unspecified; E11.42 Type 2 diabetes mellitus with diabetic polyneuropathy; Z79.4 Long term (current) use of insulin; Z79.84 Long term (current) use of oral hypoglycemic drugs | CPT/HCPCS: 11721; 99213 ==

== ENCOUNTER 2024-08-23 06:11 | Outpatient (CLI) | payer MEDICARE, MEDICAID, SELFPAY ==
--- NOTE | 2024-08-23 06:15 | USCV_ITS ---
Sim Angeles Age: 64 Gender: M : 1960 Exam Date: 08/23/2024 06:28 Ordering Phys: Alva Allen NP Technologist: Exam Location: [facility] – [place] Indication: cad hx of mi BP: 120 / 70 HR: 65 Rhythm: Sinus Technical Quality: Adequate MEASUREMENTS (Male / Female) Normal Values 2D ECHO LV Diastolic Diameter PLAX 5.2 cm 4.2 - 5.9 / 3.9 - 5.3 cm IVS Diastolic Thickness 1.1 cm 0.6 - 1.0 / 0.6 - 0.9 cm IVS Systolic Thickness 1.5 cm LVPW Diastolic Thickness 1.3 cm 0.6 - 1.0 / 0.6 - 0.9 cm LVPW Systolic Thickness 1.3 cm LVOT Diameter 2.1 cm LV Ejection Fraction 2D Teich 31.1 % LV Ejection Fraction MOD 4C 29.2 % LV Ejection Fraction MOD 2C 62.1 % LV Ejection Fraction 2C AL 61.5 % LA Diameter 3.5 cm RA Systolic Volume 4C AL 91.8 ml RA Systolic Volume 4C MOD 90.4 ml Aorta at Sinotubular Diameter 3.1 cm IVC Diameter 2.4 cm M-MODE LA Ao Ratio MM 1.2 AV Cusp Separation MM 2.0 cm DOPPLER AV Peak Velocity 102.0 cm/s LVOT Peak Velocity 91.0 cm/s AV Area Cont Eq vti 3.6 cm squared AV Area Cont Eq pk 3.0 cm squared MV Peak Velocity 103.0 cm/s MV Area PHT 3.7 cm squared Mitral E to A Ratio 1.4 TR Peak Velocity 130.0 cm/s TR Peak Gradient 6.8 mmHg TV Peak E Velocity 77.0 cm/s PV Peak Velocity 79.7 cm/s FINDINGS Left Ventricle Left ventricle is normal in size. LV systolic function is mildly reduced with EF of 45-50%. Mild hypokinesis. Right Ventricle Normal in size and function Right Atrium Normal in size Left Atrium Normal in size Mitral Valve Structurally normal mitral valve. Mild mitral regurgitation Aortic Valve Structurally normal aortic valve. No significant stenosis or regurgitation Tricuspid Valve Mild tricuspid regurgitation. Insufficient TR jet to calculate RVSP Pulmonic Valve Not well visualized Pericardium Normal Aorta Normal in size IVC Not well-visualized CONCLUSIONS LV systolic function is mildly reduced with EF of 45-50%. Mild mitral regurgitation. Mild tricuspid regurgitation. Compared to prior echocardiogram from 2023, LV systolic function appears to have improved. Ted Pizarro MD (Electronically Signed) Final Date: 06 September 2024 12:36 S
== END 2024-08-23 06:12 | disposition home or self-care (01) ==
LOC: RAD 06:12
PROVIDERS: PCP Electrodiagnostic Medicine; Visit Provider Nurse Practitioner Family
DX: I50.20 Unspecified systolic (congestive) heart failure (principal); R93.1 Abnormal findings on diagnostic imaging of heart and coronary circulation; I34.0 Nonrheumatic mitral (valve) insufficiency; I07.1 Rheumatic tricuspid insufficiency
CPT/HCPCS: 93306

== ENCOUNTER → 2024-08-29 15:15 | Outpatient (BNVA) | payer MEDICARE, MEDICAID, SELFPAY | PROVIDERS: PCP Electrodiagnostic Medicine; Visit Provider Podiatrist Foot & Ankle Surgery | DX: E11.42 Type 2 diabetes mellitus with diabetic polyneuropathy (principal); B35.1 Tinea unguium; G62.9 Polyneuropathy, unspecified; N18.9 Chronic kidney disease, unspecified; E11.621 Type 2 diabetes mellitus with foot ulcer; L97.512 Non-pressure chronic ulcer of other part of right foot with fat layer exposed; Z79.84 Long term (current) use of oral hypoglycemic drugs; Z79.4 Long term (current) use of insulin | CPT/HCPCS: 11055; 99213 ==

== ENCOUNTER → 2024-10-03 15:11 | Outpatient (BNVA) | payer OTHER, MEDICAID, SELFPAY | PROVIDERS: PCP Electrodiagnostic Medicine; Visit Provider Podiatrist Foot & Ankle Surgery | DX: E11.621 Type 2 diabetes mellitus with foot ulcer (principal); B35.1 Tinea unguium; G62.9 Polyneuropathy, unspecified; N18.9 Chronic kidney disease, unspecified; E11.42 Type 2 diabetes mellitus with diabetic polyneuropathy; L85.9 Epidermal thickening, unspecified; Z79.84 Long term (current) use of oral hypoglycemic drugs; Z79.4 Long term (current) use of insulin; L97.512 Non-pressure chronic ulcer of other part of right foot with fat layer exposed | CPT/HCPCS: 11055; 99213 ==

== ENCOUNTER 2024-11-04 07:17 | Emergency (ER) | payer OTHER, MEDICAID, SELFPAY ==
--- NOTE | 2024-11-04 07:17 | XR_ITS ---
WS: [id number] Portable AP upright chest, 11/04/2024 Clinical Data: chest pain Comparison: Portable chest, 01/22/2024 Findings: No nodules, masses or effusions are seen. The heart is normal. The pulmonary vascularity is not increased. No pneumonia or pneumothorax is seen. The right diaphragm is slightly elevated and there is linear atelectasis over the surface. The aortic arch shows mild tortuosity as does the descending thoracic aorta. Monitor leads are on the chest wall. XR/XR chest 1V portable [id number] Impression: Atherosclerosis.
--- NOTE | 2024-11-04 07:17 | ECG_ITS ---
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1960 Requested By: Pj Beckett Order Number: [id number] Reading MD: KYRA NAILS Measurements Intervals Amity Rate: 65 P: 67 KS: 136 QRS: 63 QRSD: 98 T: 67 QT: 408 QTc: 426 Interpretive Statements SINUS RHYTHM LOW QRS VOLTAGE IN PRECORDIAL LEADS [QRS DEFLECTION < 1.0 mV IN CHEST LEADS] SEPTAL MYOCARDIAL INFARCTION , OF INDETERMINATE AGE [40+ ms Q WAVE IN V1/V2] Compared to ECG 04/06/2023 13:17:49 Low QRS voltage now present Sinus tachycardia no longer present ST (T wave) deviation no longer present Myocardial infarct finding still present Electronically Signed On 11-04-2024 10:45:26 CDT by KYRA NAILS [email or web address]
--- NOTE | 2024-11-04 07:18 | W.ED.CHESTPA ---
HPI - Chest Pain General: Chief Complaint: Chest Pain Stated Complaint: CP Time Seen by Provider: 11/04/24 07:17 History of Present Illness: 64-year-old male with a known history of coronary disease presents complaining of chest pain. Patient was at rest when he began having chest discomfort he took Pepto-Bismol with no significant relief immediately. By the time he arrived here he says he has been minimal chest discomfort. Patient lives at [facility] plate has some intellectual disability is difficult to get him to quantify his pain. He denies any shortness of breath. He does state 2 days ago he went for a walk and did not have any chest discomfort with exertion. He has a known history of coronary artery disease previously had a STEMI with stent. In March 2023 patient presented to the ER with vague complaint of chest pain because of his intellectual disability is difficult to quantify how long he been having pain. He was noted to be a ST elevation [place] and went directly to the Printer Repair Technician he had a single stent placed in the LAD just past the ostium. During that hospitalization he had an ejection fraction of 20% subsequent echocardiogram but shown improvement with his most recent echocardiogram August 23, 2024 showing 45 to 50% ejection fraction with mild hypokinesis. No significant valvular disease was noted. Associated symptoms: Deny abdominal pain, dyspnea or fever(s) Related Data Home Medications ?Medication ?Instructions ?Recorded ?Confirmed acetaminophen 325 mg tablet 650 mg PO Q6H PRN Pain 07/08/19 10/11/24 (Tylenol) lithium carbonate 300 mg tablet 300 mg PO BID@07/08/19 10/11/24 metformin 1,000 mg tablet 1,000 mg PO BID@07/08/19 10/11/24 olanzapine 15 mg tablet (Zyprexa) 15 mg PO BEDTIME@07/08/19 10/11/24 olanzapine 2.5 mg tablet (Zyprexa) 2.5 mg PO BEDTIME@07/08/19 10/11/24 zolpidem 10 mg tablet (Ambien) 10 mg PO BEDTIME PRN insomnia 07/08/19 10/11/24 bismuth subsalicylate 525 mg/15 mL 525 mg PO QID PRN Diarrhea 10/07/21 10/11/24 oral suspension (Pepto-Bismol Max St) polyethylene glycol 3350 17 17 g PO DAILY@10/07/21 10/11/24 gram/dose oral powder fluticasone propionate 50 1 spray intranasal DAILY PRN 11/12/21 10/11/24 mcg/actuation nasal Congestion spray,suspension melatonin 3 mg capsule 9 mg PO BEDTIME 11/12/21 10/11/24 omeprazole 20 mg tablet,delayed 20 mg PO DAILY@04/08/22 10/11/24 release simvastatin 20 mg tablet 20 mg PO BEDTIME@04/08/22 10/11/24 aluminum-mag hydroxide-simethicone 10 - 20 ml PO .BETWEEN MEALS OR HS 04/07/23 10/11/24 200 mg-200 mg-20 mg/5 mL oral susp PRN unknown clotrimazole-betamethasone 1 1 applic topical BID 04/07/23 10/11/24 %-0.05 % topical cream insulin degludec 100 unit/mL (3 20 unit SUBCUT BEDTIME 04/07/23 10/11/24 mL) subcutaneous pen (Tresiba FlexTouch U-100 insulin) insulin lispro 100 unit/mL 5 unit SUBCUT TID@06,11,16 04/07/23 10/11/24 subcutaneous solution (Humalog U-100 Insulin) metoprolol succinate 50 mg 25 mg PO BID 04/07/23 10/11/24 tablet,extended release 24 hr potassium chloride 10 mEq 10 meq PO DAILY@04/07/23 10/11/24 tablet,extended release topiramate 200 mg tablet 200 mg PO BEDTIME@04/07/23 10/11/24 vitamins A,C,S-ghfp-ormysv 4,296 1 cap PO BID@07,04/07/23 10/11/24 mcg-226 mg-90 mg capsule (PreserVision AREDS) losartan 50 mg tablet 50 mg PO DAILY 07/26/23 10/11/24 ketoconazole 2 % shampoo 1 applic topical DAILY 01/22/24 10/11/24 Previous Rx's ?Medication ?Instructions ?Recorded clopidogrel 75 mg tablet 75 mg PO DAILY #90 tabs 06/29/23 aspirin 81 mg tablet,delayed 81 mg PO DAILY #90 tabs 03/28/24 release CAM boot #1 ea 04/25/24 meloxicam 7.5 mg tablet 7.5 mg PO DAILY #14 tabs 06/27/24 diabetic shoes with 3 inserts #1 ea 10/03/24 Allergies Allergy/AdvReac Type Severity Reaction Status Date / Time No Known Allergies Allergy Verified 10/11/24 08:28 Review of Systems Const: Denies: fever(s) or chills Card: Denies: chest pain Resp: Denies: dyspnea GI: Denies: abdominal pain : Denies: dysuria, urinary frequency or urinary urgency Musc: Denies: neck pain or back pain Skin/Breast: Denies: rash PFSH ED PFSH: Medical History Ischemic cardiomyopathy Diabetes Chronic kidney disease (CKD) Acute anterior wall [place] [facility] Cigarette smoker Other schizophrenia Social History Smoking and tobacco/nicotine status: former use of tobacco/nicotine Physical Exam Const: COMMON NORMALS: no acute distress GENERAL APPEARANCE: cooperative and comfortable ORIENTATION/CONSCIOUSNESS: Yes awake, Yes oriented to person, Yes oriented to place and Yes oriented to time HENMT: COMMON NORMALS: normocephalic, atraumatic and hearing grossly normal bilaterally HEAD & SCALP: normocephalic and atraumatic Resp: COMMON NORMALS: normal respiratory effort, No retractions, No use of accessory muscles and clear to auscultation bilaterally AUSCULTATION: clear to auscultation bilaterally Cardio: COMMON NORMALS: regular rate, regular rhythm and No murmurs present (Cardio) RATE: regular rate RHYTHM: regular rhythm GI: COMMON NORMALS: Soft to palpation and No hepatosplenomegaly present AUSCULTATION: Yes normoactive bowel sounds PALPATION: Yes Soft to palpation, No Tenderness to palpation present (GI), No Guarding due to palpation present (GI) and Yes No hepatosplenomegaly present Extremity: COMMON NORMALS: normal to inspection, capillary refill normal, no clubbing, cyanosis or edema, no calf tenderness and no pedal edema Neuro: SENSORIUM/ORIENTATION: Yes oriented to person, Yes oriented to place and Yes oriented to time Skin: COMMON NORMALS: no rashes or lesions noted GENERAL SKIN EXAM: no rashes or lesions noted Course Vital Signs: Vital signs: Vital Signs Temperature 97.8 F 11/04/24 07:22 Pulse Rate 65 11/04/24 10:57 Respiratory Rate 17 11/04/24 07:22 Blood Pressure 123/86 11/04/24 10:57 Pulse Oximetry 98 11/04/24 10:57 Oxygen Delivery Me thod Room Air 11/04/24 10:00 MDM - Chest Pain Medical Decision Making Is not having any further chest pain EKGs troponins are unremarkable. His creatinine is slightly elevated but it is at approximately his baseline. I discussed Dr. Pizarro who is on-call for cardiology. We reviewed the heart score and his current symptoms and laboratory and EKG changes at this point Dr. Pizarro felt that he Could follow-up in the cardiology clinic does not recommend admission. Made an appointment for him to follow-up in the next 2 days return if he has further problems continue his current medications. Medical Records STEMI 04/06/2023 Hospital Course Hospital Course Angiography was performed via the right radial artery. His LAD was occluded just past the ostium. It was stented with a 3.5 x 22 mm stent with anabaptist of GRISELDA-3 flow. The echo showed a significant wall motion disturbance in the apical septum, apex and anterior wall. His ejection fraction is in the mid 20s. He suffered no arrhythmias other than some accelerated idioventricular rhythm shortly after the vessel was reperfused. There was no evidence of heart failure. He had no further chest pain. There were no complications at the entry site. Contrast material was minimized due to his creatinine. His discharge BUN and creatinine are 20 and 1.4. His admission BUN and creatinine are 21 and 1.5. Glomerular filtration rate is 51. His diabetes was treated appropriately during his hospital stay. Blood sugars ran in the low to mid 200s. His troponin peaked at greater than 10,000 suggesting a rather large myocardial infarction. He will hold the metformin until tomorrow. Will see him in follow-up in a week to 10 days to check his radial artery and his chemistry panel. Lab Data 11/04/24 07:31 11/04/24 07:31 Radiology Impressions Chest X-Ray 11/04/24 07:17 Impression: Atherosclerosis. Laboratory Results WBC 8.18 10^3/uL (3.29-11.43) 11/04/24 07:31 RBC 4.48 10^6/uL (3.85-5.65) 11/04/24 07:31 Hgb 14.30 g/dL (11.27-16.99) 11/04/24 07:31 Hct 43.8 % (37-53) 11/04/24 07: MCV 97.8 fl (82-101) 11/04/24 07: MCH 31.9 pg (27-33) 11/04/24 07: MCHC 32.6 g/dL (30-55) 11/04/24 07: RDW 12.9 % (12.1-15.1) 11/04/24 07: Plt Count 159 10^3/cmm (157-399) 11/04/24 07: MPV 10.0 fL (7.4-10.4) 11/04/24 07: Neut % (Auto) 66.6 % 11/04/24 07: Lymph % (Auto) 19.3 % 11/04/24 07: [place] % (Auto) 6.5 % 11/04/24 07: Eos % (Auto) 7.0 % 11/04/24 07: Baso % (Auto) 0.4 % 11/04/24 07: Neut # (Auto) 5.45 10^3/uL (1.8-7.7) 11/04/24 07: Lymph # (Auto) 1.6 10^3/uL (0.8-4.8) 11/04/24 07: [place] # (Auto) 0.5 10^3/uL (0.2-0.9) 11/04/24 07: Eos # (Auto) 0.6 10^3/uL (0.0-0.8) 11/04/24 07: Baso # (Auto) 0.0 10^3/uL (0.0-0.1) 11/04/24 07: Nucleated RBC % (auto) 0 % 11/04/24 07: Nucleated RBCs # 0.0 /100WBC 11/04/24 07:31 Sodium 143 mmol/L (136-145) 11/04/24 07:31 Potassium 4.6 mmol/L (3.5-5.1) 11/04/24 07: Chloride 110 mmol/L (98-107) H 11/04/24 07:31 Carbon Dioxide 20 mmol/L (22-29) L 11/04/24 07:31 Anion Gap 17.6 (5-19) 11/04/24 07:31 BUN 15 mg/dL (8-23) 11/04/24 07:31 Creatinine 1.6 mg/dL (0.7-1.2) H 11/04/24 07:31 GFR Calculation 43.6 mL/min (90-130) L 11/04/24 07:31 Glucose 208 mg/dL (65-115) H 11/04/24 07:31 Calculated Osmolality 303 mOsm/kg (285-295) H 11/04/24 07:31 Calcium 8.9 mg/dL (8.5-10.5) 11/04/24 07:31 Total Bilirubin 0.2 mg/dL (0.15-1.2) 11/04/24 07:31 AST 18 U/L (0-40) 11/04/24 07:31 ALT 17 U/L (0-41) 11/04/24 07:31 Alkaline Phosphatase 91 U/L (40-130) 11/04/24 07:31 Troponin T Baseline 19 ng/L (0-15) H 11/04/24 07:31 Troponin T 120 Minute 17.23 ng/L (0-15) H 11/04/24 09:47 Delta Troponin T -1.77 ABS# (0-10) L 11/04/24 09:47 Total Protein 6.5 g/dL (6.6-8.7) L 11/04/24 07:31 Albumin 4.2 g/dL (3.5-5.2) 11/04/24 07:31 Globulin 2.3 g/dL (1.3-4.6) 11/04/24 07:31 All radiology interpretation(s) finalized by discharge EKG Data EKG 1: Interpretation: EKG 11/04/2024 7:19 AM sinus rhythm. Q waves in V1 and 2 unchanged from previous EKG. Rate of 65 AK interval 136 QTc 426 compared to EKG 04/06/2023 Q waves present at that EKG as well EKG 2: Interpretation: EKG 11/04/2024 9:20 AM sinus rhythm no acute ST changes noted no significant change from EKG done earlier same day. Rate of 60 parable 147 QTc 430 Clincial Decision Support The following clinical decision support tools were used to aid in care of the patient HEART Score -> History: Slightly Suspicous, EKG: Normal, Age: 65 or more yrs, Risk Factors: >/=3 Risk Factors, Troponin: Baseline Trop 16-45 ng/L. Resulting HEART Score: 5. Discharge Plan Discharge Patient Disposition: Home Clinical Impression: Chest pain, History of CAD (coronary artery disease) Condition: Stable Prescriptions: No Action metformin 1,000 mg tablet 1,000 mg PO BID@07,20 lithium carbonate 300 mg tablet 300 mg PO BID@07,20 olanzapine [Zyprexa] 2.5 mg tablet 2.5 mg PO BEDTIME@20 Rx Instructions: take with 15mg to =17.5mg olanzapine [Zyprexa] 15 mg tablet 15 mg PO BEDTIME@20 Rx Instructions: take with 2.5mg tab to =17.5mg acetaminophen [Tylenol] 325 mg tablet 650 mg PO Q6H PRN (Reason: Pain) zolpidem [Ambien] 10 mg tablet 10 mg PO BEDTIME PRN (Reason: insomnia) omeprazole 20 mg tablet,delayed release (DR/EC) 20 mg PO DAILY@07 melatonin 3 mg capsule 9 mg PO BEDTIME fluticasone propionate 50 mcg/actuation spray,suspension 1 spray intranasal DAILY PRN (Reason: Congestion) Rx Instructions: administer into each nostril Pepto-Bismol Max St 525 mg/15 mL suspension 525 mg PO QID PRN (Reason: Diarrhea) Rx Instructions: do not exceed 8 doses in a 24 hour period polyethylene glycol 3350 17 gram/dose powder 17 g PO DAILY@07 simvastatin 20 mg tablet 20 mg PO BEDTIME@20 losartan 50 mg tablet 50 mg PO DAILY (DME) CAM boot See Rx Instructions .Route .MEDSUPPLY Qty: 1 0RF Rx Instructions: As directed meloxicam 7.5 mg tablet 7.5 mg PO DAILY Qty: 14 0RF (DME) diabetic shoes with 3 inserts See Rx Instructions .Route .MEDSUPPLY Qty: 1 0RF Rx Instructions: As directed to [facility] diabetic [facility] clopidogrel 75 mg tablet 75 mg PO DAILY Qty: 90 3RF aspirin 81 mg tablet,delayed release (DR/EC) 81 mg PO DAILY Qty: 90 3RF potassium chloride 10 mEq tablet extended release 10 meq PO DAILY@07 clotrimazole-betamethasone 1-0.05 % Cream 1 applic TOPICAL BID Rx Instructions: FOR 4 WEEKS topiramate 200 mg tablet 200 mg PO BEDTIME@20 alum-mag hydroxide-simeth 200-200-20 mg/5 mL Suspension 10 - 20 ml PO .BETWEEN MEALS OR HS PRN (Reason: unknown) insulin lispro [Humalog U-100 Insulin] 100 unit/mL solution 5 unit SUBCUT TID@06,11,16 Rx Instructions: hold if bs is <70 PreserVision AREDS 4,296 mcg-226 mg-90 mg capsule 1 cap PO BID@07,20 insulin degludec [Tresiba FlexTouch U-100] 100 unit/mL (3 mL) insulin pen 20 unit SUBCUT BEDTIME metoprolol succinate 50 mg tablet extended release 24 hr 25 mg PO BID ketoconazole 2 % shampoo 1 applic TOPICAL DAILY Discharge Orders: Discharge ED (Routine); Ordered 11/04/24 Ordered By: Pj Stafford Referrals: Patrick Perez DO [Primary Care Provider, Family Practice] Patient Instructions: Opioid Safety, Pain Management, Patient Portal & Jimy Instructions Activity Restrictions/Additional Instructions: Thank you for choosing [facility] for your healthcare needs today. It is very important that you follow up as instructed or that you return to the Emergency Department should you have concerns or if your condition changes or worsens in any way. Emergency department visits are focused on emergent conditions, in some cases you may require further evaluation on an outpatient basis. You were seen in the emergency room for episode of chest pain we reviewed your case with the digital proofing and platemaker on-call they will see you in the next 1 to 2 days in the cardiology clinic. Continue all your current medications return if you have further problems. (Please note that included in your discharge packet is information concerning opioid safety and pain management. This information is given to all patients were discharged from the ER regardless of their discharge diagnosis or the medicines they usually take or are prescribed.) Print Language: German Coding Level of Care Code ED Oral Hygienist for Sachi Rene
[2024-11-04 07:22] VITALS: BP 154/79; PULSE 69; RESP 17; TEMP 36.6; O2SAT 97
[2024-11-04 07:37] LABS: Hematocrit 43.8 % (37-53); Hemoglobin 14.30 g/dL (11.27-16.99); Mean Corpuscular HGB Conc 32.6 g/dL (30-55); Mean Corpuscular Hemoglobin 31.9 pg (27-33); Mean Corpuscular Volume 97.8 fl (82-101); Nucleated Red Blood Cells % 0 %; Platelet Count 159 10^3/cmm (157-399); Red Blood Count 4.48 10^6/uL (3.85-5.65); White Blood Count 8.18 10^3/uL (3.29-11.43)
[2024-11-04 08:03] LABS: Alanine Aminotransferase 17 U/L (0-41); Albumin Level 4.2 g/dL (3.5-5.2); Alkaline Phosphatase 91 U/L (40-130); Blood Urea Nitrogen 15 mg/dL (8-23); Calcium 8.9 mg/dL (8.5-10.5); Carbon Dioxide 20 mmol/L (22-29); Chloride 110 mmol/L (98-107); Creatinine Clr Calc Pharmacy 53.9370; Globulin 2.3 g/dL (1.3-4.6); Glucose 208 mg/dL (65-115); Osmolality Calculated 303 mOsm/kg (285-295); Sodium 143 mmol/L (136-145); Total Protein 6.5 g/dL (6.6-8.7)
[2024-11-04 08:04] LABS: Anion Gap 17.6 (5-19); Aspartate Amino Transferase 18 U/L (0-40); Potassium 4.6 mmol/L (3.5-5.1); Troponin(5th) Baseline 19 ng/L (0-15)
[2024-11-04 09:00] VITALS: BP 137/81; PULSE 65; O2SAT 97
--- NOTE | 2024-11-04 09:20 | ECG_ITS ---
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
[2024-11-04 10:00] VITALS: BP 137/75; PULSE 59; O2SAT 98
[2024-11-04 10:23] LABS: Troponin 5 2HR 17.23 ng/L (0-15); Troponin 5 2HR Delta -1.77 ABS# (0-10)
[2024-11-04 10:57] VITALS: BP 123/86; PULSE 65; O2SAT 98
== END 2024-11-04 10:58 | disposition home or self-care (01) ==
PROVIDERS: Emergency Provider Family Medicine; PCP Electrodiagnostic Medicine
DX: R07.9 Chest pain, unspecified (principal); I25.10 Atherosclerotic heart disease of native coronary artery without angina pectoris; Z79.84 Long term (current) use of oral hypoglycemic drugs; Z79.02 Long term (current) use of antithrombotics/antiplatelets; Z79.82 Long term (current) use of aspirin; Z79.4 Long term (current) use of insulin; Z87.891 Personal history of nicotine dependence; E11.22 Type 2 diabetes mellitus with diabetic chronic kidney disease; N18.9 Chronic kidney disease, unspecified
CPT/HCPCS: 36415; 71045; 80053; 84484; 85025; 93005; 99285; J9999

== ENCOUNTER → 2024-11-06 10:57 | Outpatient (BNVA) | payer OTHER, MEDICAID, SELFPAY | PROVIDERS: PCP Electrodiagnostic Medicine; Visit Provider Internal Medicine Cardiovascular Disease | DX: I13.0 Hypertensive heart and chronic kidney disease with heart failure and stage 1 through stage 4 chronic kidney disease, or unspecified chronic kidney disease (principal); N18.9 Chronic kidney disease, unspecified; I50.20 Unspecified systolic (congestive) heart failure; E78.2 Mixed hyperlipidemia; I65.23 Occlusion and stenosis of bilateral carotid arteries; Z95.5 Presence of coronary angioplasty implant and graft; Z86.79 Personal history of other diseases of the circulatory system; Z87.891 Personal history of nicotine dependence; I25.2 Old myocardial infarction; R07.9 Chest pain, unspecified | CPT/HCPCS: 99214 ==

== ENCOUNTER → 2024-11-07 15:02 | Outpatient (BNVA) | payer OTHER, MEDICAID, SELFPAY | PROVIDERS: PCP Electrodiagnostic Medicine; Visit Provider Podiatrist Foot & Ankle Surgery | DX: E11.42 Type 2 diabetes mellitus with diabetic polyneuropathy (principal); B35.1 Tinea unguium; L84 Corns and callosities; G62.9 Polyneuropathy, unspecified; N18.9 Chronic kidney disease, unspecified; E11.621 Type 2 diabetes mellitus with foot ulcer; L97.512 Non-pressure chronic ulcer of other part of right foot with fat layer exposed | CPT/HCPCS: 11055; 11721 ==

== ENCOUNTER 2024-11-19 07:10 | Outpatient (CLI) | payer OTHER, MEDICAID, SELFPAY ==
--- NOTE | 2024-11-19 | ECG_ITS ---
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 Interpretive Statements Procedure: The patient was exercised by the Jorden protocol. Data findings: The resting blood pressure was 136/85 with a heart rate of 86. The patient exercised for a total of 4 minutes and 46 seconds on the Jorden protocol reaching a maximum heart rate of 146 bpm which was 94% of maximal predicted heart rate. They achieved 7 METS of exercise. The maximum blood pressure was 192/86. The resting EKG showed normal sinus rhythm with possible old septal infarction. There were no ST-T wave changes or arrhythmias during the stress test or in recovery. CONCLUSION: 1. Exercise capacity was average for age. 2. Heart rate response was appropriate. 3. Blood pressure response was appropriate. 4. No symptoms of angina during exercise. 5. Electrocardiogram portion of the stress test without evidence of ischemia. 6. Nuclear scan will be documented separately. Electronically Signed On 11-19-2024 20:40:02 CDT by Shaun Mukherjee M.D. [email or web address]
[2024-11-19 07:20] VITALS: BMI 27.1
--- NOTE | 2024-11-19 07:23 | NMCV_ITS ---
NM paxton perf SPECT r/s* [id number] Sim Angeles Age: 64 Gender: M : 1960 Exam Date: 11/19/2024 08:12 Ordering Phys: Shaun Mukherjee MD ([email or web address]) Technologist: KARELY Pantoja Exam Location: [facility] Indications: CP STRESS TEST [facility] IMAGE PROTOCOL Rest/Stress 1 Exercise Day Radiopharmaceutical Dose (mCi) Administration Site Administered by Rest: Tc-99m 10.4 IV KARELY Win Sestamibi Stress:Tc-99m 32.9 IV KARELY Win Sestamibi Rest: 19-Nov-2024 60 Discovery 630 Stress: 19-Nov-2024 15 Discovery 630 Radiopharmaceutical was injected at 87 % maximum heart rate. Images obtained in supine and prone position. SPECT RESULTS Technical Quality: Good Raw Data Analysis: Normal Image Corrections: No attenuation or motion correction applied Summed Stress Score: 32 Summed Rest Score: 30 Summed Difference Score: 5 PERFUSION FINDINGS There is a large area of severely reduced tracer counts in the anterior, anteroseptal, inferoseptal and inferior [place] on both the rest and stress images. There is a small to medium sized area of moderately reduced tracer counts in the inferolateral wall at stress that improved on the resting images consistent with reversible ischemia. FUNCTIONAL RESULTS (calculated via Gated SPECT) Stress Image LV EF (%): 49 Stress EDV (mL):167 TID: 1.11 Stress ESV (mL):85 FUNCTIONAL FINDINGS: Mild LV cavity enlargement at rest Mild LV dysfunction, EF 49%. IMPRESSIONS 1. There is a large myocardial infarction in the anterior, anteroseptal, inferoseptal and inferior [place] with a small to medium sized area of moderate ischemia in the inferolateral wall. 2. Mild LV dysfunction, EF 49% Shaun Mukherjee MD, FACC (Electronically Signed) Final Date: 19 November 2024 20:22 S
[2024-11-19 09:17] VITALS: BP 160/64; PULSE 99
== END 2024-11-19 07:11 | disposition home or self-care (01) ==
LOC: CDL 07:12
PROVIDERS: PCP Electrodiagnostic Medicine; Visit Provider Internal Medicine Cardiovascular Disease
DX: R07.9 Chest pain, unspecified (principal); R94.39 Abnormal result of other cardiovascular function study; I49.8 Other specified cardiac arrhythmias; R94.31 Abnormal electrocardiogram [ECG] [EKG]
CPT/HCPCS: 36415; 78452; 93017; A9500

== ENCOUNTER 2024-11-21 09:03 | Outpatient (CLI) | payer OTHER, MEDICAID, SELFPAY ==
[2024-11-21 10:20] LABS: Hematocrit 43.7 % (37-53); Hemoglobin 14.30 g/dL (11.27-16.99); Mean Corpuscular HGB Conc 32.7 g/dL (30-55); Mean Corpuscular Hemoglobin 31.5 pg (27-33); Mean Corpuscular Volume 96.3 fl (82-101); Nucleated Red Blood Cells % 0 %; Platelet Count 167 10^3/cmm (157-399); Red Blood Count 4.54 10^6/uL (3.85-5.65); White Blood Count 8.45 10^3/uL (3.29-11.43)
[2024-11-21 10:39] LABS: INR 0.94 (0.83-1.21)
[2024-11-21 10:44] LABS: Anion Gap 16.0 (5-19); Blood Urea Nitrogen 23 mg/dL (8-23); Calcium 9.1 mg/dL (8.5-10.5); Carbon Dioxide 21 mmol/L (22-29); Chloride 108 mmol/L (98-107); Glucose 155 mg/dL (65-115); Osmolality Calculated 299 mOsm/kg (285-295); Potassium 4.0 mmol/L (3.5-5.1); Sodium 141 mmol/L (136-145)
== END 2024-11-21 09:04 | disposition home or self-care (01) ==
PROVIDERS: PCP Electrodiagnostic Medicine; Visit Provider Internal Medicine Cardiovascular Disease
DX: R58 Hemorrhage, not elsewhere classified (principal); I50.20 Unspecified systolic (congestive) heart failure; I10 Essential (primary) hypertension; I25.5 Ischemic cardiomyopathy
CPT/HCPCS: 36415; 80048; 85025; 85610

== ENCOUNTER 2024-11-29 07:36 | Outpatient (CLI) | payer OTHER, MEDICAID, SELFPAY ==
[2024-11-29] VITALS (28 sets, daily range): BP systolic 132–161; BP diastolic 73–95; PULSE 60–75; RESP 13–18; TEMP 36.6; O2SAT 95–99; BMI 27.1
--- NOTE | 2024-11-29 07:30 | XACV_ITS ---
Exam Room: 2 Ht: 183 cm Wt: 91 kg BSA: 2.16 m2 Gender: Male : 1960 Any Known Allergies: No known allergies Exam Priority: Routine Procedure(s): Procedure Description: Diagnostic procedure Procedure Description: PCI procedure Procedure Description: Drug Eluting Coronary Stent Procedure Description: PTCA Procedure Description: Miscellaneous Procedure Description: ACT Procedure Description: Coronary Angiography Diagnostic Cath Status: Elective Diagnostic Findings * INDICATION: Chest pain/abnormal stress test. * Left Main has no significant disease. * Left Anterior Descending has patent prior stent. * Circumflex has mild luminal irregularities. * Mid Right Coronary Artery: significant 80% stenosis, GRISELDA: 3 flow. * First Obtuse Marginal Branch Segment: severe 90% stenosis, GRISELDA: 3 flow. * Coronary angiography shows right dominance. PCI Status: Elective PCI Indication: Other Interventional Findings * Procedure detail: XB 3.0 guide catheter was used to engage left main artery. We performed predilation of OM 1 with 2.5 x 20 mm semicompliant balloon. This was followed with placement of 2.75 x 30 mm resolute Kalama drug-eluting stent. Final angiogram showed excellent stent expansion and no residual stenosis. Guidewire and guide catheter were removed. Patient left the Gang Worker in a stable condition. We then turned our attention to mid RCA stenosis. We predilated stenosis with 3.0 x 15 mm semicompliant balloon. This was followed by placement of 3.5 x 18 mm resolute Kalama drug-eluting stent. At this time final angiogram was performed that showed excellent stent expansion and no residual stenosis. Guidewire and guide catheter were removed. Patient left the Gang Worker in a stable condition.. * Mid Right Coronary Artery: 80% stenosis treated with a AB TREK 3.00X15 RX BALLOON, and MDT R SENA 3.5X18 MERT. 0% residual stenosis, GRISELDA: 3 flow. * First Obtuse Marginal Branch Segment: 90% stenosis treated with a AB TREK 2.50X20 RX BALLOON, and MDT R SENA 2.75X30 EMRT. 0% residual stenosis, GRISELDA: 3 flow. Conclusions 1. Severe OM 1 stenosis status post PCI with 1 stent. Severe mid RCA stenosis status post PCI with 1 stent.. 2. Mid Right Coronary Artery was treated with a Balloon, and Drug Eluting Stent. 3. First Obtuse Marginal Branch Segment was treated with a Balloon, and Drug Eluting Stent. Recommendations * Dual antiplatelet therapy with aspirin and plavix. * High intensity statin therapy. * Outpatient cardiology follow up in 2 weeks. Interventional RX Recommendation: PCI w/o planned CABG Diagnostic RX Recommendation: PCI w/o planned CABG Anticoagulation: Heparin Pressures Phase:Rest AO : 123 / 93 ( 105 ) @ 10:36:00 AM 143 / 96 ( 118 ) @ 10:57:00 AM Clinical Evaluation EBL: 5mL-10mL Procedural Details Procedure Consent Obtained. Pre-Procedure Time Out. Identified patient by full name and date of as verbalized by the patient/guarantor. Does the consent match the physician's order: Yes. Accurate & Complete Informed Consent: Yes. Inpatient/Outpatient History & Physical on Chart: Yes. If H&P is completed, is and addenduem needed: No. Visualize and Verify Site with Patient/Guarantor: N/A. Relevant Radiology Images available: Yes. The risks, benefits, and alternatives of sedation and/or procedure were discussed by physician. The patient agrees to continue. Procedure started. [facility] Clinical Fraility Score: 3: Managing Well. Gang Worker Indications: New Onset Angina/Abnormal stress test. Chest Pain Symptom Assessment: Typical Angina Symptoms. Cardiovascular Instability: No. Correct patient, site and procedure confirmed by cath team. PERRLA. Strong, equal hand general production manager bilaterally. Lungs clear x 5 lobes. IV Site on Arrival: 20 gauge in the left anticubital. IV Fluids: 0.9% NaCl at KVO. 250 mL infused prior to label press operator. Pre Procedural Pulses: bilateral dorsalis pedis was 2+. Pre Procedural Pulses: bilateral posterior tibial was 3+. Pre Procedural Pulses: bilateral radial was 3+. Oxygen started at 2liters/min via nasal canula. right groin was prepped with chloroprep then draped in the usual sterile fashion. right radial was prepped with chloroprep then draped in the usual sterile fashion. Baseline sample Acquired. HR: 79 BPM. Physician notified. Patient's family unavailable. He has a caregiver with him in CPRU room #3. Dr. Pizarro will update at the completion of the procedure. Equipment: 6F - Radial. Cardiac Cath Pack. ACIST Manifold Kit Model BT 2000. Heparinized Saline (2 units/mL), 1000 mL bag. Physician arrived. Physician scrubbed in. Immediate Pre-Procedure Time Out. Correct Patient: Yes; Correct Procedure: Yes; Correct Site: Yes; Correct Patient Position: Yes; Correct Supplies: Yes; Dried Flammable Prep: Yes; Blood Products Available: N/A;. Lidocaine 1% infiltrated to the right radial. Arterial access obtained. A 5 puerto rican TIG catheter in over the exchange J wire. Multiple views taken of left coronary artery. Catheter redirected to the RCA. Multiple views taken of right coronary artery. Catheter removed over the exchange J wire. 6 puerto rican XB 3.5 guide catheter was inserted over the exchange J wire. Guide catheter out over the exchange J wire. 6 puerto rican XB 3 guide catheter was inserted over the exchange J wire. Runthrough guidewire was advanced through the guide catheter to lesion in the OM-1. Inflation number : 1 A AB TREK 2.50X20 RX BALLOON was prepped and advanced across the 1st Ob Kenisha , then inflated to 10 EKTA for 0:11 seconds. Inflation number: 2 The AB TREK 2.50X20 RX BALLOON was reinflated across the 1st Ob Kenisha, to 10 EKTA for 0:07 seconds. Balloon out. Inflation Number : 3 Madonna Brambila SENA 2.75X30 MERT -Lot Number# [id number] Exp. was prepped and advanced across the 1st Ob Kenisha. The stent was deployed at 12 EKTA for 0:15 seconds. Stent balloon out over wire. Results checked. Wire out. Results checked. ACT drawn. Results out of range HI. Will redraw. Guide catheter out over the exchagne J wire. 6 puerto rican JR 4 guide catheter was inserted over the exchange J wire. Runthrough guidewire was advanced through the guide catheter to lesion in the mid RCA. Inflation number : 1 A AB TREK 3.00X15 RX BALLOON was prepped and advanced across the Mid RCA , then inflated to 10 ETKA for 0:10 seconds. Inflation number: 2 The AB TREK 3.00X15 RX BALLOON was reinflated across the Mid RCA, to 10 EKTA for 0:05 seconds. Balloon out. Inflation Number : 3 A REBECCA Brambila SENA 3.5X18 MERT -Lot Number# [id number] Exp. was prepped and advanced across the Mid RCA. The stent was deployed at 12 EKTA for 0:19 seconds. Stent balloon out over wire. Results checked. Wire out. ACT drawn. Results 392 seconds. Therapeutic limits - pre-heparin administration 90-150 seconds and monitoring heparin during a vascular procedure >250 seconds. Guide catheter out over the exchange J wire. Dr. Pizarro scrubbed out. A TR Band was successful obtaining hemostatsis at the Right Radial artery insertion site. Post Procedure: Pulses reassessed and unchanged. PERRLA. Strong, equal hand general production manager bilaterally. No VTE prophylaxis required. Medication's Wasted: Lidocaine 1% = 18 mL. Medication's Wasted: Nitro = 49.8 mg. Medication's Wasted: Heparin = 2000 units. Medication's Wasted: Other = Versed 1 mg. Medication's Wasted: Other = Fentanyl 50 mcg. Total IV fluids: 100 mL. PCI Indication: CAD (without ischemic symptoms). Post-op diagnosis: MERT x 1 to OM-1/MERT x 1 to Mid RCA. Complications: none. Estimated blood loss: 5mL-10mL. Responsiveness - Normal response to verbal stimuli; alert and oriented, PERRLA. Airway - Unaffected, no intervention required; spontaneous ventilation. Circulation: W/N/L, pulses unchanged. Nausea/Vomiting: No. Vital chart was stopped. Procedure completed. Patient transferred by wheelchair to CPRU. Access Site Site: Right Radial artery Sheath Size: 6 Fr Hemostasis Method: TR Band Hemostasis Success: Successful Procedure Medications Start: 9:11 AM Stop: 9:11 AM Medication: Fentanyl Amount: 50 mcg Route: I.V. Start: 9:16 AM Stop: 9:16 AM Medication: Fentanyl Amount: 50 mcg Route: I.V. Start: 9:31 AM Stop: 9:31 AM Medication: Versed Amount: 2 mg Route: I.V. Start: 9:31 AM Stop: 9:31 AM Medication: Fentanyl Amount: 25 mcg Route: I.V. Start: 9:33 AM Stop: 9:33 AM Medication: Nitrogylcerin Amount: 200 mcg Route: I.A. Start: 9:35 AM Stop: 9:35 AM Medication: Heparin Amount: 5000 units Route: I.V. Start: 9:39 AM Stop: 9:39 AM Medication: Heparin Amount: 4000 units Route: I.V. Start: 9:46 AM Stop: 9:46 AM Medication: Versed Amount: 1 mg Route: I.V. Start: 9:46 AM Stop: 9:46 AM Medication: Fentanyl Amount: 25 mcg Route: I.V. Start: 10:07 AM Stop: 10:07 AM Medication: Plavix Amount: 300 mg Route: P.O. I, the attending physician, have reviewed and verified all procedure medications. Yes, all medications given per verbal order History/Risk Factors Hypertension: Yes Dyslipidemia: Yes Peripheral Arterial Disease (PAD): No Myocardial Infarction (CO): Yes Obesity: No Renal Disease: No Tobacco Use: Former Prior Interventions PCI: Yes CABG: No Valve Surgery: No Date of PCI: 04/06/2023 Report Signatures Finalized by Ted Pizarro MD on 12/01/2024 10:58 AM
[2024-11-29 08:19] LABS: Anion Gap 17.9 (5-19); Blood Urea Nitrogen 24 mg/dL (8-23); Calcium 9.2 mg/dL (8.5-10.5); Carbon Dioxide 22 mmol/L (22-29); Chloride 109 mmol/L (98-107); Creatinine Clr Calc Pharmacy 57.5328; Glucose 252 mg/dL (65-115); Osmolality Calculated 313 mOsm/kg (285-295); Potassium 3.9 mmol/L (3.5-5.1); Sodium 145 mmol/L (136-145)
--- NOTE | 2024-11-29 08:22 | W.PM.OPSUD ---
Surgery/Procedure H&P Update DATE OF PROCEDURE: November 29, 2024 DATE H&P PERFORMED: 11/06/24 H&P UPDATE INFORMATION: I have reviewed H&P completed within last 30 days, I have examined patient prior to procedure and Changes to prior documentation as noted here CHANGES TO PREVIOUS DOCUMENTATION: Patient complaining of worsening chest pain. Stress test is abnormal. Plan for coronary angiogram with possible PCI. Referred by Dr. Mukherjee PREOP DIAGNOSIS: Chest pain/abnormal stress test PRIMARY INDICATION FOR PROCEDURE: Chest pain/abnormal stress test PLANNED PROCEDURE: Operation Date: 11/29/24 08:30 Proposed Procedures p Cardiac Catheterization - [facility] w/wo LV & Coros(Left) - Ted Pizarro M.D Possible percutaneous coronary intervention PATIENT REASSESSED PRIOR TO SEDATION, WITH NO CHANGE NOTED: Yes PHYSICAL EXAM: alert, oriented x 3, clear to auscultation bilaterally and regular rate & rhythm AIRWAY EVAL/ANESTHESIA PLAN: normal airway, ASA III, Local Anesthesia, Risks, benefits & alternatives of sedation and/or procedure discussed and Patient agrees to continue as planned ADDITIONAL INFORMATION: Moderate sedation
--- NOTE | 2024-11-29 10:10 | PM.PROC ---
Procedure Note: Date of procedure: 11/29/24 Pre-procedure diagnosis: Chest pain/abnormal stress test Post-procedure diagnosis: other (Severe OM 1 stenosis s/p PCI with 1 stent. Severe mid RCA stenosis s/p PCI with 1 stent) Procedure: PCI of mid RCA and OM 1 with 2 stents Dual antiplatelet therapy IV hydration for 6 hours Performing Provider: Ted Pizarro Complications: None Condition: stable Disposition: floor Coding Level of Care Code Acute Code for Sachi Rene
--- NOTE | 2024-11-29 10:30 | PC.NURSE ---
Pt arrived post cath to CPRU 3 for recovery. Pt alert and oriented. Breathing even and non-labored on room air. Denies pain. Right radial has TR band in place. No signs of bleeding or hematoma. Pt educated on activity restrictions, verbalized understanding. Placed on bedside media monitor. Call light in reach.
--- NOTE | 2024-11-29 12:15 | PC.NURSE ---
Attempted to start air removal from TR band at this time. 1ml air removed from right radial TR band. Site started to bleed. 1ml air placed back into band, hemostasis achieved. No hematoma present.
--- NOTE | 2024-11-29 13:21 | PC.NURSE ---
Patient transferred to Outpatients surgery recovery until post cath recovery completed. Right radial continues to have TR band in place, no signs of bleeding or hematoma. Pt belonging including clothing, phone, glasses, and wallet sent with patient.
--- NOTE | 2024-11-29 15:24 | SUR.PHASEII ---
TR BAND ON RIGHT RADIAL WRIST. GOOD RADIAL PULSE PRESENT. 1cc AIR WITHDRAWN AT 13:50 1cc AIR WITHDRAWN AT 14:00 1cc AIR WITHDRAWN AT 14:10 1cc AIR WITHDRAWN AT 14:20 1cc AIR WITHDRAWN AT 14:30 1cc AIR WITHDRAWN AT 14:50. NO NEW BLOOD NOTED AT RIGHT RADIAL SITE.
--- NOTE | 2024-11-29 17:05 | SUR.PHASEII ---
1cc AIR WITHDRAWN AT 15:20 1cc AIR WITHDRAWN AT 15:50 1cc AIR WITHDRAWN AT 16:10 1cc AIR WITHDRAWN AT 16:20 TR BAND DC ed. AREA CLEANED. NO BLEEDING OR OOZING BLOOD. PRESSURE DRESSING APPLIED USING 2X2 S AND COBAN. PT DISCHARGED IN STABLE CONDITION. INSTRUCTED NO WEIGHT BEARING OR LIFTING USING RIGHT ARM. WRITTEN AND VERBAL INSTRUCTIONS GIVEN TO [facility]. PT TRANSPORTED BY [facility]
== END 2024-11-29 16:45 | disposition home or self-care (01) ==
PROVIDERS: PCP Electrodiagnostic Medicine; Visit Provider Internal Medicine
DX: I25.118 Atherosclerotic heart disease of native coronary artery with other forms of angina pectoris (principal); Z95.5 Presence of coronary angioplasty implant and graft; E78.5 Hyperlipidemia, unspecified; I25.2 Old myocardial infarction; Z87.891 Personal history of nicotine dependence; E11.22 Type 2 diabetes mellitus with diabetic chronic kidney disease; I12.9 Hypertensive chronic kidney disease with stage 1 through stage 4 chronic kidney disease, or unspecified chronic kidney disease; N18.9 Chronic kidney disease, unspecified; Z79.82 Long term (current) use of aspirin; Z79.84 Long term (current) use of oral hypoglycemic drugs; Z79.4 Long term (current) use of insulin; K21.9 Gastro-esophageal reflux disease without esophagitis; I25.5 Ischemic cardiomyopathy
CPT/HCPCS: 36415; 80048; 85347; 93454; 96360; 96361; 96365; 99152; 99153; C1725; C1769; C1874; C1887; C1894; C9600; J1644; J2250; J3010; J3490; J7030; J9999; Q0163; Q9967

== ENCOUNTER → 2024-12-11 16:01 | Outpatient (BNVA) | payer OTHER, MEDICAID, SELFPAY | PROVIDERS: PCP Electrodiagnostic Medicine; Visit Provider Internal Medicine Cardiovascular Disease | DX: I25.10 Atherosclerotic heart disease of native coronary artery without angina pectoris (principal); I11.0 Hypertensive heart disease with heart failure; I50.20 Unspecified systolic (congestive) heart failure; E78.2 Mixed hyperlipidemia; I65.23 Occlusion and stenosis of bilateral carotid arteries; Z95.5 Presence of coronary angioplasty implant and graft; Z87.891 Personal history of nicotine dependence; I25.2 Old myocardial infarction | CPT/HCPCS: 99214 ==

== ENCOUNTER → 2025-02-04 12:27 | Outpatient (BNVA) | payer OTHER, MEDICAID, SELFPAY | PROVIDERS: PCP Electrodiagnostic Medicine; Visit Provider Internal Medicine Cardiovascular Disease | DX: I25.10 Atherosclerotic heart disease of native coronary artery without angina pectoris (principal); I10 Essential (primary) hypertension; E78.2 Mixed hyperlipidemia; Z87.891 Personal history of nicotine dependence | CPT/HCPCS: 99214 ==

== ENCOUNTER 2025-02-16 15:09 | Emergency (ER) | payer MEDICARE, MEDICAID, SELFPAY ==
[2025-02-16 15:17] VITALS: BP 166/82; PULSE 73; RESP 17; TEMP 36.6; O2SAT 99; BMI 26.7
--- NOTE | 2025-02-16 15:20 | W.ED.PSYCHS ---
HPI - Psych General: Chief Complaint: Anxiety Stated Complaint: MHE Time Seen by Provider: 02/16/25 15:12 Source: patient Mode of arrival: ambulatory Limitations: no limitations History of Present Illness: 65-year-old male is here from [facility] has a history of schizophrenia along with anxiety states that his physician recently taken him off lithium due to having high lithium levels and states he had been having some anxiety since then. Patient is not acutely psychotic he denies being HI or SI. Plan flight states they have been trying to get an touch with his physician Dr. Gillis but have not been able to get a hold of him. Related Data Home Medications ?Medication ?Instructions ?Recorded ?Confirmed acetaminophen 325 mg tablet 650 mg PO Q6H PRN Pain 07/08/19 02/04/25 (Tylenol) lithium carbonate 300 mg tablet 300 mg PO BID@,07/08/19 02/04/25 metformin 1,000 mg tablet 1,000 mg PO BID@,07/08/19 02/04/25 Held on 11/29/24. Instructions: Resume on 12/02/24. olanzapine 15 mg tablet (Zyprexa) 15 mg PO BEDTIME@07/08/19 02/04/25 olanzapine 2.5 mg tablet (Zyprexa) 2.5 mg PO BEDTIME@07/08/19 02/04/25 zolpidem 10 mg tablet (Ambien) 10 mg PO BEDTIME PRN insomnia 07/08/19 02/04/25 bismuth subsalicylate 525 mg/15 mL 525 mg PO QID PRN Diarrhea 10/07/21 02/04/25 oral suspension (Pepto-Bismol Max St) polyethylene glycol 3350 17 17 g PO DAILY@10/07/21 02/04/25 gram/dose oral powder fluticasone propionate 50 1 spray intranasal DAILY PRN 11/12/21 02/04/25 mcg/actuation nasal Congestion spray,suspension melatonin 3 mg capsule 9 mg PO BEDTIME 11/12/21 02/04/25 omeprazole 20 mg tablet,delayed 20 mg PO DAILY@04/08/22 02/04/25 release simvastatin 20 mg tablet 20 mg PO BEDTIME@04/08/22 02/04/25 aluminum-mag hydroxide-simethicone 10 - 20 ml PO .BETWEEN MEALS OR HS 04/07/23 02/04/25 200 mg-200 mg-20 mg/5 mL oral susp PRN unknown insulin degludec 100 unit/mL (3 20 unit SUBCUT BEDTIME 04/07/23 02/04/25 mL) subcutaneous pen (Tresiba FlexTouch U-100 insulin) insulin lispro 100 unit/mL 5 unit SUBCUT TID@06,11,16 04/07/23 02/04/25 subcutaneous solution (Humalog U-100 Insulin) metoprolol succinate 50 mg 25 mg PO BID 04/07/23 02/04/25 tablet,extended release 24 hr potassium chloride 10 mEq 10 meq PO DAILY@07 04/07/23 02/04/25 tablet,extended release topiramate 200 mg tablet 200 mg PO BEDTIME@04/07/23 02/04/25 vitamins A,C,A-mybb-kapbqb 4,296 1 cap PO BID@,04/07/23 02/04/25 mcg-226 mg-90 mg capsule (PreserVision AREDS) losartan 50 mg tablet 50 mg PO DAILY 07/26/23 02/04/25 Previous Rx's ?Medication ?Instructions ?Recorded clopidogrel 75 mg tablet 75 mg PO DAILY #90 tabs 06/29/23 CAM boot #1 ea 04/25/24 diabetic shoes with 3 inserts #1 ea 10/03/24 nitroglycerin 0.4 mg sublingual 0.4 mg sublingual Q5M PRN chest 11/06/24 tablet (Nitrostat) pain #20 tabs aspirin 81 mg tablet,delayed 81 mg PO DAILY #90 tabs 01/30/25 release alprazolam 1 mg tablet (Xanax) 1 mg PO BID PRN anxiety #14 tabs 02/16/25 Allergies Allergy/AdvReac Type Severity Reaction Status Date / Time No Known Allergies Allergy Verified 02/04/25 12:46 PFS ED PFS: Medical History (Updated 02/16/25 @ 15:20 by Bernardo Granda MD) Ischemic cardiomyopathy Diabetes Chronic kidney disease (CKD) Acute anterior wall [facility] Cigarette smoker Other schizophrenia Social History Smoking and tobacco/nicotine status: former use of tobacco/nicotine (Quit in 2005) Physical Exam Const: COMMON NORMALS: no acute distress, patient oriented x3 and healthy appearing HENMT: COMMON NORMALS: normocephalic and atraumatic HEAD & SCALP: normocephalic and atraumatic Neck/C-Spine: COMMON NORMALS: full ROM and supple Chest: COMMONS NORMALS: normal inspection of the chest Resp: COMMON NORMALS: normal respiratory effort Cardio: COMMON NORMALS: regular rate RATE: regular rate Extremity: COMMON NORMALS: normal to inspection and full ROM Neuro: COMMON NORMALS: patient oriented x3, moves all extremities and no focal motor deficits Psych: COMMON NORMALS: mental status grossly normal, Normal thought process present and cooperative THOUGHT PROCESS: Normal thought process present THOUGHT CONTENT: No Suicidality present and No Homicidality present Skin: COMMON NORMALS: no rashes or lesions noted and no wounds GENERAL SKIN EXAM: no rashes or lesions noted Course Vital Signs: Vital signs: Vital Signs Temperature 97.8 F 02/16/25 15:17 Pulse Rate 73 02/16/25 15:17 Respiratory Rate 17 02/16/25 15:17 Blood Pressure 166/82 02/16/25 15:17 Pulse Oximetry 99 02/16/25 15:17 Oxygen Delivery Me thod Room Air 02/16/25 15:17 MDM - Psych Medical Decision Making Patient presents here with anxiety he is well-appearing here he is not homicidal or suicidal or acutely psychotic does not require inpatient treatment did give him Ativan here and we will give him a prescription for Xanax as needed at lamp light until he is able to get into his psychiatrist return if worsening. Medical Records I reviewed the patient's medical records. No radiology studies performed this visit Discharge Plan Discharge Patient Disposition: Home Clinical Impression: Anxiety Condition: Stable Prescriptions: New alprazolam [Xanax] 1 mg tablet 1 mg PO BID PRN (Reason: anxiety) Qty: 14 0RF No Action metformin 1,000 mg tablet 1,000 mg PO BID@, lithium carbonate 300 mg tablet 300 mg PO BID@,20 olanzapine [Zyprexa] 2.5 mg tablet 2.5 mg PO BEDTIME@20 Rx Instructions: take with 15mg to =17.5mg olanzapine [Zyprexa] 15 mg tablet 15 mg PO BEDTIME@20 Rx Instructions: take with 2.5mg tab to =17.5mg acetaminophen [Tylenol] 325 mg tablet 650 mg PO Q6H PRN (Reason: Pain) zolpidem [Ambien] 10 mg tablet 10 mg PO BEDTIME PRN (Reason: insomnia) omeprazole 20 mg tablet,delayed release (DR/EC) 20 mg PO DAILY@07 melatonin 3 mg capsule 9 mg PO BEDTIME fluticasone propionate 50 mcg/actuation spray,suspension 1 spray intranasal DAILY PRN (Reason: Congestion) Rx Instructions: administer into each nostril Pepto-Bismol Max St 525 mg/15 mL suspension 525 mg PO QID PRN (Reason: Diarrhea) Rx Instructions: do not exceed 8 doses in a 24 hour period polyethylene glycol 3350 17 gram/dose powder 17 g PO DAILY@07 simvastatin 20 mg tablet 20 mg PO BEDTIME@20 losartan 50 mg tablet 50 mg PO DAILY (DME) CAM boot See Rx Instructions .Route .MEDSUPPLY Qty: 1 0RF Rx Instructions: As directed ([facility]) diabetic shoes with 3 inserts See Rx Instructions .Route .MEDSUPPLY Qty: 1 0RF Rx Instructions: As directed to [facility] diabetic [facility] nitroglycerin [Nitrostat] 0.4 mg tablet, sublingual 0.4 mg sublingual Q5M PRN (Reason: chest pain) Qty: 20 3RF Rx Instructions: do not exceed 3 doses per episode clopidogrel 75 mg tablet 75 mg PO DAILY Qty: 90 3RF aspirin 81 mg tablet,delayed release (DR/EC) 81 mg PO DAILY Qty: 90 3RF potassium chloride 10 mEq tablet extended release 10 meq PO DAILY@07 topiramate 200 mg tablet 200 mg PO BEDTIME@20 alum-mag hydroxide-simeth 200-200-20 mg/5 mL Suspension 10 - 20 ml PO .BETWEEN MEALS OR HS PRN (Reason: unknown) insulin lispro [Humalog U-100 Insulin] 100 unit/mL solution 5 unit SUBCUT TID@06,11,16 Rx Instructions: hold if bs is <70 PreserVision AREDS 4,296 mcg-226 mg-90 mg capsule 1 cap PO BID@07,20 insulin degludec [Tresiba FlexTouch U-100] 100 unit/mL (3 mL) insulin pen 20 unit SUBCUT BEDTIME metoprolol succinate 50 mg tablet extended release 24 hr 25 mg PO BID Discharge Orders: Discharge ED (Routine); Ordered 12/21/25 Ordered By: Bernardo Granda Referrals: Patrick Perez DO [Primary Care Provider, Family Practice] - 4-7 days Discharge Diet: Advance as tolerated Discharge Activity: Resume usual activity Patient Instructions: Anxiety (ED) Print Language: Mongolian Coding Level of Care Code ED Scaler Packer for Sachi Rene
--- OUTSIDE RECORDS SUMMARY | 2025-02-16 15:21 | XMS_ITS | Encounter Summary ---
Author Organization [facility] Address [address] [place] [address] Care Team Providers Care High Lead Yarder Name Role Phone Unavailable Primary Care Provider Unavailabl e Encounter Details Date Type Department Care Team (Latest Contact Info) Description 03/11/2004 Outpatient Historical [facility] Gastroenterology- [place] [address] [place] [address] Paulino Casanova MD NO ADDRESS ON FILE VIR HEP NEC W/O COMA W HEP C CHRON (CMS/HCC) (Primary Dx) Social History Tobacco Use Types Packs/Day Years Used Date Smoking Tobacco: Never Assessed Sex and Gender Information Value Date Recorded Sex Assigned at Not on file Legal Sex Male 6:47 AM NUTRITION MANAGER Gender Identity Not on file Sexual Orientation Not on file documented as of this encounter Plan of Treatment Not on file documented as of this encounter Procedures Procedure Name Priority Date/Time Associated Diagnosis Comments HEPATITIS A AB IGG/IGM Routine 03/11/2004 1:04 PM NUTRITION MANAGER HEPATITIS A IGM Routine 03/11/2004 1:04 PM NUTRITION MANAGER documented in this encounter Results * HEPATITIS A IGM (03/11/2004 1:04 PM NUTRITION MANAGER) HEPATITIS A IGM Negative Negative INTERFACE SYSTEM 03/11/2004 1:04 PM NUTRITION MANAGER us Paulino Casanova MD CHEMISTRY ORDERABLES Final Resul t INTERFACE SYSTEM Refer to clinic/hospital department * (ABNORMAL) HEPATITIS A AB IGG/IGM (03/11/2004 1:04 PM NUTRITION MANAGER) HEPATITIS A IGG/IGM AB Positive( A) Negative INTERFACE SYSTEM Comment: The HAV IgG/IgM test on the hepatitis panel screens for total HAV antibody and does not distinguish between acute HAV or immunity to HAV. If acute HAV is suspected the HAV-IgM test serologically confirms an acute HAV infection. 03/11/2004 1:04 PM NUTRITION MANAGER us Paulino Casanova MD CHEMISTRY ORDERABLES Final Resul t INTERFACE SYSTEM Refer to clinic/hospital department documented in this encounter Visit Diagnoses Diagnosis Chronic hepatitis C without mention of hepatic coma (CMS/HCC)- Primary Chronic hepatitis C without mention of hepatic coma documented in this encounter
--- OUTSIDE RECORDS SUMMARY | 2025-02-16 15:21 | XMS_ITS | Clinical Summary ---
Author Organization [facility] Address [address] [place]: Epic Prelude ADT MONI RAE [address] Care Team Providers Care Lamination Operator Name Role Phone Unavailable Primary Care Provider Unavailabl e Immunizations Immunization Administration Dates Next Due Hepatitis A Vaccine 05/14/2004,12/19/2003,2003 Social History Tobacco Use Types Packs/Day Years Used Date Smoking Tobacco: Never Assessed Sex and Gender Information Value Date Recorded Sex Assigned at Not on file Legal Sex Male 6:47 AM SALICYLIC ACID BLENDER Gender Identity Not on file Sexual Orientation Not on file Plan of Treatment Health Maintenance Due Date Last Done Comments DTAP/TDAP/TD VACCINES (1 - Tdap) 1978 COLORECTAL SCREENING 02/15/2004 Colorectal Cancer Screening 02/15/2004 FIT-DNA Q 3 years 02/15/2004 FIT/FOBT Q 1 year 02/15/2004 Flex Sig/CT Colonography Q 5 years 02/15/2004 PNEUMOCOCCAL VACCINE 50+ YEARS (1 of 1 - PCV) 02/15/20 09 ZOSTER VACCINE (1 of 2) 2009 INFLUENZA VACCINE (#1) 2024 RSV VACCINE (60+ or ) (1 - 1-dose 75+ series) 2034
--- OUTSIDE RECORDS SUMMARY | 2025-02-16 15:21 | XMS_ITS | Encounter Summary ---
Author Organization [facility] Address [address] [place] [address] Care Team Providers Care Vacuum Spindle Sander Name Role Phone Unavailable Primary Care Provider Unavailabl e Encounter Details Date Type Department Care Team (Latest Contact Info) Description 03/11/2004 Outpatient Historical [facility] Jessie Razo FNP NO ADDRESS ON FILE VIR HEP NEC W/O COMA W HEP C [facility] (CMS/HCC) (Primary Dx) Social History Tobacco Use Types Packs/Day Years Used Date Smoking Tobacco: Never Assessed Sex and Gender Information Value Date Recorded Sex Assigned at Not on file Legal Sex Male 6:47 AM [employer] Gender Identity Not on file Sexual Orientation Not on file documented as of this encounter Plan of Treatment Not on file documented as of this encounter Visit Diagnoses Diagnosis Chronic hepatitis C without mention of hepatic coma (CMS/HCC)- Primary Chronic hepatitis C without mention of hepatic coma documented in this encounter
--- OUTSIDE RECORDS SUMMARY | 2025-02-16 15:21 | XMS_ITS | Data Portability ---
Author Organization MONI Riaz Zhang [facility], [facility] Address [address] [place] [address] Care Team Providers Care Knot Tying Operator Name Role Phone MARTA NAILSD Internal Medicine ROSEYJUANITO Internal Medicine CONSTANCE HARRELL Primary Care Provider Unavailabl e Assessment Encounter Date Assessment Date Assessment LastModified by Organization Details LastModified Time 10/24/2024 10/24/2024 Document scribed by Cr Phillips Ophthalmic Lens Inspector. I was present during interview and exam. I have reviewed and agree with above documentation . Dr. Constance Harrell. Assisted living paperwork filled out and provided back to pt today. [email or web address] Not available 10/24/2024 10:56:51 Plan of Treatment Reminders Order Date Submit Date Provider Last Modified By Organization Details Last Modified Time Details Appointments None recorded. Lab hemoglobin A1C/hemoglo bin total, QN, blood 2024 025 [email or web address] [facility], [address] [facility] [address], [place], [address], 13:14:32 CMP, serum or plasma 2024 025 chelsea [facility], [address], [facility], [place], [address], 13:14:32 CBC 2024 025 chelsea [facility], [address], [place], [address], 13:14:32 lithium, serum - LLV ORDERS 2024 [facility], [address], [address], [place], [address], 08:37:23 HBsAg (hepatitis B surface Ag), serum 2024 025 SUSAN [facility], [address], [place], [address], 12:43:53 hepatitis C virus Ab, serum 2024 [email or web address] [facility], [address], [address], [place], [address], 09:48:14 HIV 1+2 Ab + HIV1 p24 Ag, quantitativ e immunoassay , serum 2024 [facility], [address], [place], [address], 12:43:54 Referral None recorded. Procedures None recorded. Surgeries None recorded. Imaging None recorded. Medication Orders Desitin 40 % topical paste 2024 SUSAN [facility], [address] [place] [address], [address], 13:48:01 Gold Mcgill Medicated Body 0.8 % topical powder 2024 SUSAN [facility], [address] [place] [address], [address], 13:48:03 clotrimazol e 1 % topical cream 2024 SUSAN [facility], [address] [place] [address], [address], 14:43:24 Patient TargetsNo targets recorded. Patient InstructionsNo instructions recorded. Reason for Referral None Reported. Results Created Date Observation Date Name Description Value Unit Range Abnormal Flag Note LastModifiedBy Organization Detail LastModifiedTime 07/24/1907/24/2024 HEPAT ITIS B SURFA CE ANTIG EN W/REF L CONFI RM hepatitis B surface antigen NON-RE ACTIVE non-re active normal For addit ional infor matio n, pleas e refer to http: //[facility] n.que stdia gnost ics.c om/fa q/FAQ 202 (This link is being provi ded for infor matio nal/ educa angel l purpo ses only. ) Not Available [facility] [address] [place], [address], 07/24/2024 12:43:53 07/24/1907/24/2024 HIV 1/2 ANTIG EN/AN TIBOD Y,FOU RTH GENER ATION W/RFL HIV Ag/Ab, 4TH gen NON-RE ACTIVE non-re active normal HIV-1 antig en and HIV-1 /HIV- 2 antib odies were not detec sharlene. There is no labor atory evide nce of HIV infec tion. PLEAS E NOTE: This infor matio n has been discl osed to you from recor ds whose confi denti ality may be prote cted by state law. If your state requi res such prote ction , then the state law prohi bits you from basil nolasco any furth er discl osure of the infor matio n witho ut the speci fic writt en conse nt of the perso n to whom it perta ins, or as other dodd permi tted by law. A gener al autho rizat ion for the relea se of medic al or other infor matio n is NOT suffi cient for this purpo se. For addit ional infor matio n pleas e refer to http: //[facility] n.que stdia gnost ics.c om/fa q/FAQ 106 (This link is being provi ded for infor matio nal/ educa angel l purpo ses only. ) The perfo rmanc e of this assay has not been clini lani valid ated in patie nts less than 2 years old. Not Available [facility] [address] [place], [address], 07/24/2024 12:43:54 07/24/1907/24/2024 HCV RNA, QUANT ITATI VE REAL TIME PCR HCV RNA, quantitative real time PCR <15 NOT DETECT ED IU/mL not detect ed normal Not Available [facility] [address] [place], [address], 07/24/2024 12:43:55 07/24/19 25 07/24/2024 HCV RNA, QUANT ITATI VE REAL TIME PCR HCV RNA, quantitative real time PCR <1.18 NOT DETECT ED log_I U/mL not detect ed normal For addit ional infor corrie amaro refer to http: //[facility] erika rebolledo stdia gnost ics.c om/fa q/FAQ 22v1 (This link is being provi ded for infor matio nal/ educa angel l purpo ses only. ) Not Available [facility] [address], [address], 07/24/2024 12:43:55 10/05/1910/05/2024 LITHI UM lithium 0.5 mmol/ L 0.6-1. 2 low Not Available [facility] [address] [place], [address], 10/05/2024 08:37:23 10/18/1910/24/2024 CBC WBC 10.7 x10 4.5-10 .5 high Not Available [facility] [address] [address], [place], [address], 10/24/2024 11:40:16 10/18/19 25 10/24/2024 CBC RBC 4.91 x10 4.30-5 .90 Not Available [facility] [address] [facility], [place], [address], 10/24/2024 11:40:16 10/18/1910/24/2024 CBC HGB 15.9 g/dL 13.5-1 8.0 Not Available [facility] [address] [facility], [place], [address], 10/24/2024 11:40:16 10/18/1910/24/2024 CBC HCT 48.7 % 35.0-6 0.0 Not Available [facility] [address] [facility], [place], [address], 10/24/2024 11:40:16 10/18/1910/24/2024 CBC MCV 99.2 fL 80.0-9 9.9 Not Available [facility] [address] [facility], [place], [address], 10/24/2024 11:40:16 10/18/1910/24/2024 CBC MCH 32.3 pg 27.0-3 2.0 high Not Available [facility] [address] [facility], [place], [address], 10/24/2024 11:40:16 10/18/1910/24/2024 CBC MCHC 32.6 g/dL 32.0-3 6.0 Not Available [facility] [address] [facility], [place], [address], 10/24/2024 11:40:16 10/18/1910/24/2024 CBC RDW 13.0 % 11.5-1 4.5 Not Available [facility] [address] [facility], [place], [address], 10/24/2024 11:40:16 10/18/1910/24/2024 CBC plt 175.3 x10 150.0- 451.0 Not Available [facility] [address] [facility], [place], [address], 10/24/2024 11:40:16 10/18/1910/24/2024 CBC lymphocytes % 10.8 % 20.0-5 0.0 low Not Available [facility] [address] [facility], [place], [address], 10/24/2024 11:40:16 10/18/19 25 10/24/2024 CBC granulcytes % 80.3 % 30.0-7 0.0 high Not Available [facility] [address] [facility], [place], [address], 10/24/2024 11:40:16 10/18/1910/24/2024 CBC monocytes % 5.9 % 2.0-16 .0 Not Available [facility] [address] [address], [place], [address], 10/24/2024 11:40:16 10/18/1910/24/2024 CBC granulcytes# 8.6 x10 Not Jana ilable [facility] [address] [facility] [place], [address], 10/24/2024 11:40:16 10/18/1910/24/2024 CBC lymphocytes # 1.2 x10 Not Available [facility] [address] [facility], [place], [address], 10/24/2024 11:40:16 10/18/1910/24/2024 CBC monocytes # 0.6 x10 Not Avai lable [facility] [address] [facility], [place], [address], 10/24/2024 11:40:16 10/18/19 25 10/24/2024 HBA1C hemaglobin A1C 6.8 4.2-6. 5 high Not Available [facility] [address] [facility], [place], [address], 10/24/2024 11:52:25 10/18/19 25 10/24/2024 CMP (MALE ) glucose 176.0 mg/dL 60.0-9 9.0 high Not Available [facility] [address] [facility], [place], [address], 10/24/2024 12:21:29 10/18/19 25 10/24/2024 CMP (MALE ) BUN (blood urea nitrogen) 23.0 mg/dL 10.0-2 6.0 Not Available [facility] [address] [facility], [place], [address], 10/24/2024 12:21:29 10/18/19 25 10/24/2024 CMP (MALE ) creatinine (serum) 1.7 mg/dL 0.4-1. 5 high Not Available [facility] [address] [facility], [place], [address], 10/24/2024 12:21:29 10/18/19 25 10/24/2024 CMP (MALE ) BUN/creatini ne ratio 13.53 ratio Not Available [facility] [address] [facility], [place], [address], 10/24/2024 12:21:29 10/18/19 25 10/24/2024 CMP (MALE ) eGFR calculated 43.2 Not Available [facility] [address] [facility], [place], [address], 10/24/2024 12:21:29 10/18/19 25 10/24/2024 CMP (MALE ) total protein 7.6 g/dL 6.0-8. 5 Not Available [facility] [address] [facility] [address], [place], [address], 10/24/2024 12:21:29 10/18/19 25 10/24/2024 CMP (MALE ) total bilirubin 0.7 mg/dL 0.2-1. 3 Not Available [facility] [address] [facility] [address], [place], [address], 10/24/2024 12:21:29 10/18/19 25 10/24/2024 CMP (MALE ) albumin 4.5 g/dL 3.5-5. 5 Not Available [facility] [address] [facility] [address], [place], [address], 10/24/2024 12:21:29 10/18/19 25 10/24/2024 CMP (MALE ) globulin 3.1 calc Not Available [facility] [address] [address], [place], [address], 10/24/2024 12:21:29 10/18/19 25 10/24/2024 CMP (MALE ) AST (SGOT) 23.0 U/L 0.0-46 .0 Not Available [facility] [address] [facility] [address], [place], [address], 10/24/2024 12:21:29 10/18/19 25 10/24/2024 CMP (MALE ) altv (SGPT) 21.0 U/L 13.0-6 9.0 normal Not Available [facility] [address] [address], [place], [address], 10/24/2024 12:21:29 10/18/19 25 10/24/2024 CMP (MALE ) A/G ratio 1.5 ratio Not Available [facility] [address] [address], [place], [address], 10/24/2024 12:21:29 10/18/19 25 10/24/2024 CMP (MALE ) ALP phos 85.0 U/L 30.0-1 40.0 normal Not Available [facility] [address] [facility], [place], [address], 10/24/2024 12:21:29 10/18/19 25 10/24/2024 CMP (MALE ) calcium 9.6 mg/dL 8.4-10 .5 Not Available [facility] [address] [facility], [place], [address], 10/24/2024 12:21:29 10/18/1910/24/2024 CMP (MALE ) sodium 146.0 mmol/ L 136.0- 145.0 high Not Available [facility] [address] [facility], [place], [address], 10/24/2024 12:21:29 10/18/19 25 10/24/2024 CMP (MALE ) potassium 4.2 mmol/ L 3.5-5. 1 Not Available [facility] [address] [facility], [place], [address], 10/24/2024 12:21:29 10/18/19 25 10/24/2024 CMP (MALE ) chloride 114.0 mmol/ L 98.0-1 10.0 abnormal Not Available [facility] [address] [facility], [place], [address], 10/24/2024 12:21:29 10/18/19 25 10/24/2024 CMP (MALE ) C02 22.0 mmol/ L 22.0-3 1.0 Not Available [facility] [address] [facility], [place], [address], 10/24/2024 12:21:29 10/18/19 25 10/24/2024 CMP (MALE ) anion gap 10.0 calc Not Available [facility] [address], [place], [address], 10/24/2024 12:21:29 10/18/1910/24/2024 CMP (MALE ) osmolality 308.5 calc Not Available [facility] [address], [place], [address], 10/24/2024 12:21:29 Result Notes None recorded. Problems Name Problem SNOMED Code Status Onset Date Resolution Date Notes Provider Name and Address Organization Details Recorded Time Insomnia 482225131 Active 2022 Cr lynch [facility] 5 09:57:37 Schizophren ia 99369642 [facility] 09:56:34 Viral hepatitis C 41142980 Active [address] [facility] 5 09:56:41 Gastroesoph ageal reflux disease 249446623 Active [address] [facility] 5 09:58:29 Hepatitis C carrier 316211693 Active [address] [facility] 5 10:02:04 Hyperlipide miki 71394164 Active [address] [facility] 5 09:57:46 Constipatio n 52947374 Active [address] [facility] 5 09:22:49 Essential hypertensio n 23182022 Active 2023 Anna lynch [facility] 5 09:22:49 Bipolar disorder 72656881 Active 2023 Anna lynch [facility] 5 09:22:49 Hyperglycem ia due to type 2 diabetes mellitus 6150926635579 09 [facility] 09:22:49 Chronic kidney disease stage 3 084977212 Active 2023 [facility] 09:22:49 History of polyp of colon 449236176 Active 2024 Cr lynch [facility] 5 10:17:46 History of myocardial infarction 541148850 Active [address] [facility] 5 10:17:48 Skin ulcer of toe due to diabetes mellitus type 2 8110143072712 9[address] Active [address] [facility] 5 10:23:05 Intertrigo 84525963 Active 2024 Lavelle Soriano MD [address] [place] [address], [address] [place] [address], L.L.CBrady 5 15:41:30 Problem Notes None recorded. Procedures Surgical History Date Name Laterality Status Provider Name and Address Organization Details Recorded Time extraction of cataract completed Anna Be [facility] 06/12/2024 09:35:59 Imaging Results None recorded. Procedure Notes None recorded. Medical Equipment None Reported. Allergies No known drug allergies Medications Name Sig Start Date Stop Date Status Note LastModified by Organization Details LastModified Time losartan 50 mg tablet TAKE 1 TABLET BY MOUTH EVERY DAY FOR hyperten enrique 2024 active Not Available Not Available Not Avai lable Unistik 2 Device kit two times daily 08/14 completed Not Available Not Available Not Available doxycycli ne hyclate 100 mg capsule Take 1 capsule twice a day by oral route for 10 days. 06/12 completed Not Available Not Available Not Available ketoconaz ole 2 % shampoo APPLY TO THE AFFECTED AREA(S) LATHER, LEAVE IN PLACE FOR 5 MINUTES, AND THEN RINSE OFF WITH WATER BY TOPICAL ROUTE EVERY DAY active Not Available Not Available No t Available cetirizin e 10 mg tablet TAKE ONE TABLET BY MOUTH every day NEEDED FOR sneezing and runny nose 2024 active Not Available Not Available Not Avai lable nystatin 100,000 unit/gram topical ointment APPLY TO THE AFFECTED AREA BY TOPICAL ROUTE 2 TIMES PER DAY 12/04 completed Not Available Not Available Not Available fluconazo le 150 mg tablet Take 1 tablet by oral route for 7 days. 08/11 completed Not Available Not Available Not Available metoprolo l succinate ER 50 mg tablet,ex tended release 24 hr TAKE 1/2 TABLET BY MOUTH TWICE DAILY FOR HYPERTEN ENRIQUE 2024 active Not Available Not Available Not Avai lable Nystop 100,000 unit/gram topical powder APPLY TO THE Groin TOPICALl y 2 TIMES PER DAY] 12/04 completed Not Available Not Available Not Available glipizide 10 mg tablet TAKE ONE TABLET BY MOUTH EVERY DAY 12/04 completed Not Available Not Available Not Available Milk of Magnesia 400 mg/5 mL oral suspensio n daily, as needed 08/14 completed for constipa tion Not Available Not Available Not Available Pepto-Bis mol Max St 525 mg/15 mL oral suspensio n Take 15 mL 4 times a day by oral route as needed. 2022 active FOR NAUSEA/U PSET STOMACH Not Available Not Available Not Available potassium chloride ER 10 mEq tablet,ex tended release TAKE ONE TABLET BY MOUTH EVERY DAY FOR HYPOKALE MIKI 2024 active Not Available Not Available Not Avai lable melatonin 3 mg tablet TAKE THREE TABLETS BY MOUTH EVERY NIGHT AT BEDTIME FOR insomnia 2024 active Not Available Not Available Not Avai lable clopidogr el 75 mg tablet TAKE ONE TABLET BY MOUTH EVERY DAY 2024 active Not Available Not Available Not Avai lable olanzapin e 2.5 mg tablet TAKE 1 TABLET BY MOUTH EVERY NIGHT AT BEDTIME FOR bipolar disorder 2024 active Not Available Not Available Not Avai lable aspirin 81 mg tablet,de layed release Take 1 tablet every day by oral route. active blood blot prophyla xis Not Available Not Available Not Available ceftriaxo ne 1 gram solution for injection Take 1 g as needed by injectio n route for 1 day. 06/12 completed Not Available Not Available Not Available OneTouch Ultra Test strips USE TO test blood sugar THREE TIMES DAILY; NO DOCUMENT ATION NEEDED ON MAY 082024 active Not Available Not Available Not Avai lable lithium carbonate 300 mg capsule 08/14 completed Not Available Not Available Not Available simvastat in 20 mg tablet TAKE ONE TABLET BY MOUTH EVERY NIGHT AT BEDTIME FOR CHOLESTE ROL 2024 active Not Available Not Available Not Avai lable metformin 1,000 mg tablet TAKE ONE TABLET BY MOUTH TWICE DAILY FOR diabetes 2024 active Not Available Not Available Not Avai lable nystatin 100,000 unit/gram topical cream APPLY TO THE AFFECTED AREA(S) topicall y TWICE DAILY 12/04 completed Not Available Not Available Not Available clotrimaz ole-betam ethasone 1 %-0.05 % topical cream 08/11 completed Not Available Not Available Not Available polymyxin B sulfate 10,000 unit-trim ethoprim 1 mg/mL eye drops INSTILL 1 DROP INTO AFFECTED EYE(S) BY OPHTHALM IC ROUTE EVERY 6 HOURS 08/11 completed Not Available Not Available Not Available losartan 25 mg tablet TAKE ONE TABLET BY MOUTH EVERY DAY 08/14 completed Not Available Not Available Not Available omeprazol e 20 mg capsule,d elayed release TAKE ONE CAPSULE BY MOUTH EVERY DAY FOR GERD 2024 active Not Available Not Available Not Avai lable Tylenol 325 mg tablet TAKE TWO TABLETS (650MG) BY MOUTH EVERY 8 HOURS NEEDED FOR PAIN 2022 active Not Available Not Available Not Avai lable olanzapin e 15 mg tablet TAKE 1 TABLET BY MOUTH EVERY NIGHT AT BEDTIME FOR schizoph ирина 2024 active Not Available Not Available Not Avai lable topiramat e 200 mg tablet TAKE 1 TABLET BY MOUTH EVERY NIGHT AT BEDTIME FOR HEADACHE 2024 active Not Available Not Available Not Avai lable Diabetic Tussin DM 10 mg-100 mg/5 mL oral liquid Take 10 mL every 6 hours by oral route as needed, for cough. 2023 active Not Available Not Available Not Avai lable Novolog U-100 Insulin aspart 100 unit/mL subcutane ous solution Inject 5 units 3 times a day by subcutan eous route with meals for 30 days. 08/14 completed Not Available Not Available Not Available polyethyl olivia glycol 3350 17 gram/dose oral powder DISSOLVE 1 CAPFUL IN LIQUID AND DRINK BY MOUTH EVERY DAY FOR CONSTIPA TION 2023 active Not Available Not Available Not Avai lable zolpidem 10 mg tablet TAKE ONE TABLET BY MOUTH AT BEDTIME NEEDED 2024 active Not Available Not Available Not Avai lable topiramat e 100 mg tablet 08/14 completed Not Available Not Available Not Available lithium carbonate 300 mg tablet TAKE 1 TABLET BY MOUTH TWICE DAILY FOR bipolar disorder 2024 active Not Available Not Available Not Avai lable fluticaso ne propionat e 50 mcg/actua tion nasal spray,johnie pension INSTILL 1 SPRAY IN EACH NOSTRIL DAILY NEEDED FOR SEASONAL ALLERGIC RHINITIS active Not Available Not Available No t Available clotrimaz ole 1 % topical cream APPLY TO THE AFFECTED AND SURROUND ING AREAS OF SKIN BY TOPICAL ROUTE 2 TIMES PER DAY IN THE MORNING AND EVENING x 14 days 2024 active Not Available Not Available Not Avai lable One Touch Ultra Bonus Pack test strips USE TO TEST BLOOD SUGAR THREE TIMES DAILY 08/14 completed Not Available Not Available Not Available loratadin e 10 mg tablet Take 1 (one) Tablet by mouth daily, as needed 08/14 completed Not Available Not Available Not Available amoxicill in 875 mg-potass ium clavulana te 125 mg tablet Take 1 tablet every 12 hours by oral route for 7 days. 06/12 completed Not Available Not Available Not Available Tylenol 8 Hour 650 mg tablet,ex tended release Take 1 tablet every 8 hours by oral route as needed. 08/14 completed Not Available Not Available Not Available metoprolo l tartrate 25 mg tablet twice a day 08/14 completed Not Available Not Available Not Available loratadin e daily, as needed 11/08 completed two weeks schedule d then back to prn daily cs/smf; 93378; Recorded 01/13/20 22 1:20PM by Kerry Barajas RN (Authori zed through Prashanth Wu DO), Refill Request; Refill Quantity : 30; Tablet; Not Available Not Available Not Available lithium carbonate two times daily 11/01 completed CS/smf; 28383; Recorded 12/21/19 11:40AM by Kerry Barajas RN (Authori zed through Prashanth Wu DO), Refill Request; Refill Quantity : 60; Tablet; Not Available Not Available Not Available lancets two times daily 11/08 completed cs/smf; 43278; Recorded 11/25/19 11:59AM by Kerry Barajas RN (Authori zed through Prashanth Wu DO), Refill Request; Refill Quantity : 100; Each; Not Available Not Available Not Available glipizide daily 11/01 completed DOC RM/bn; 9; Recorded 02/17/20 10:54AM by Rhiannon Crawford (Authori zed through Buster Kapoor MD), Refill Request; Refill Quantity : 0; Not Available Not Available Not Available metformin two times daily 11/01 completed cs/smf; 34175; Recorded 05/10/19 6:18PM by Azra Grant (Authori zed through Lavelle Soriano MD), Refill Request; Refill Quantity : 60; Tablet; Not Available Not Available Not Available Vitamin daily 11/08 completed cs/smf; 18219; Recorded 03/16/19 23 8:07AM by Kerry Barajas RN (Authori zed through Prashanth Wu DO), Refill Request; Refill Quantity : 30; Tablet; Not Available Not Available Not Available One Touch Ultra Test Strips two times daily 08/14 completed Not Available Not Available Not Available Potassium Chloride ER daily 11/01 completed cs/smf; 27854; Recorded 04/04/19 23 12:05PM by Kerry Barajas RN (Authori chaparrod through Prashanth Wu DO), Refill Request; Refill Quantity : 30; Tablet; Not Available Not Available Not Available Jacy-Lant a TAKE 10-20ML BY MOUTH BETWEEN MEALS OR AT BEDTIME NEEDED 2018 active Not Available Not Available Not Avai lable PreserVis ion AREDS TAKE 1 CAPSULE BY MOUTH TWICE DAILY 2020 active Not Available Not Available Not Avai lable Desitin 40 % topical paste Apply 1 applicat ion 3 times a day by topical route. 2024 active Not Available Not Available Not Avai lable BD Insulin Syringe Ultra-Fin e 0.5 mL 31 gauge x 5/16 FOR USE WITH INSULIN active Not Available Not Available No t Available Victoza 3-Roberto 0.6 mg/0.1 mL (18 mg/3 mL) subcutane ous pen injector 08/14 completed Not Available Not Available Not Available Farxiga 10 mg tablet 08/14 completed Not Available Not Available Not Available Farxiga daily 11/01 completed dose increase cs/smf; 40774; Recorded 02/23/20 22 2:10PM by Kerry Barajas RN (Authori zed through Prashanth Wu DO), Refill Request; Refill Quantity : 30; Tablet; Not Available Not Available Not Available Vitamins Plus Low Iron 27 mg iron-1 mg tablet TAKE 1 TABLET BY MOUTH EVERY DAY ANEMIA 2024 active Not Available Not Available Not Avai lable Entresto 49 mg-51 mg tablet TAKE 1 TABLET BY MOUTH TWICE DAILY 12/04 completed Not Available Not Available Not Available Pentips Pen Needle 31 gauge x 3/16 USE DIRECTED WITH INSULIN; NO DOCUMENT ATION NEEDED ON MAY 062024 active Not Available Not Available Not Avai lable Tresiba FlexTouch U-100 insulin 100 unit/mL (3 mL) subcutane ous pen INJECT 20 UNITS SUBCUTAN EOUSLY AT BEDTIME HOLD INSULIN IF BLOOD SUGAR <70 FOR DIABETES active Not Available Not Available No t Available clotrimaz ole 1 %-betamet hasone 0.05 % cream-zin c ox 20 % paste topical USE 1 APPLICAT ION TWICE DAILY FOR TINEA PEDIS FOR 4 WEEKS 2023 active Not Available Not Available Not Avai lable BD Ultra-Fin e Micro Pen Needle 32 gauge x 03/02 USE DIRECTED WITH INSULIN active Not Available Not Available No t Available Admelog U-100 Insulin lispro 100 unit/mL subcutane ous solution INJECT 5 UNITS SUBCUTAN EOUSLY THREE TIMES DAILY WITH MEALS FOR 30 DAYS, *HOLD INSULIN IF BLOOD SUGAR <70* SEE HUMALOG DOCUMENT ATION SECTION* active Not Available Not Available No t Available Admelog SoloStar U-100 Insulin lispro 100 unit/mL subcutane ous pen 06/12 completed Not Available Not Available Not Available OneTouch Ultra2 Meter 08/14 completed Not Available Not Available Not Available OneTouch Delica Plus Lancet 33 gauge USE TO test blood SUGAR THREE TIMES DAILY; NO DOCUMENT ATION NEEDED ON APR 282024 active Not Available Not Available Not Avai lable OneTouch Delica Plus Lancet 30 gauge active Not Available Not Available Not Available FreeStyle Khris 2 Sensor kit USE 1 sensor AND CHANGE EVERY 2 WEEKS active Not Available Not Available No t Available FreeStyle Khris 2 [place] USE DIRECTED TO TEST BLOOD SUGAR 10/24 completed Not Available Not Available Not Available losartan potassium (bulk) daily 11/01 completed cs/smf; 05184; Recorded 03/16/19 23 9:40AM by Kerry Barajas RN (Authori matilde through Prashanth Wu DO), Annotati on/Adden dum; Refill Quantity : 30; Tablet; Not Available Not Available Not Available Paxlovid 300 mg (150 mg x 2)-100 mg tablets in a dose pack Take 3 tablets every 12 hours by oral route for 5 days. 08/11 completed Not Available Not Available Not Available Gold Mcgill Medicated Body 0.8 % topical powder Apply 1 g every day by topical route. 2024 active Not Available Not Available Not Avai lable FreeStyle Khris 2 Plus Sensor device USE 1 SENSOR AND CHANGE EVERY 15 DAYS; NO DOCUMENT ATION NEEDED ON MAY 062024 active Not Available Not Available Not Avai lable Vitals Date Recorded Body height Body mass index (BMI) Body weight Oxygen saturation Heart rate Body temperature Systolic And Diastolic Provider Name and Address Organization Details Last Updated DateTime 5 182.88 cm 27 kg/m2 06558.2 8 g 99 % 63 /min 97.8 [degF] 118/70 mm[Hg] Tarah Tony [facility] 5 09:23:49 Date Recorded Body height Body mass index (BMI) Body weight Respiratory rate Body temperature Heart rate Oxygen saturation Systolic And Diastolic Provider Name and Address Organization Details Last Updated DateTime 5 182.88 cm 27.2 kg/m2 64348.8 7 g 16 /min 98.3 [degF] 60 /min 98 % 120/74 mm[Hg] NASIR ZULETA [facility] 5 15:21:51 Date Recorded Body height Body mass index (BMI) Body weight Oxygen saturation Heart rate Respiratory rate Systolic And Diastolic Provider Name and Address Organization Details Last Updated DateTime 5 182.88 cm 26.6 kg/m2 93264.8 g 96 % 78 /min 18 /min 120/70 mm[Hg] Anna Be [facility] 5 10:19:27 Social History Question Answer Notes LastModified by Organizat ion Details LastModified Time Tobacco Smoking Status Former Smoker quit in 2005 Cr lynch [facility] 06/12/2024 10:15:14 Are You Blind Or Do You Have Difficulty Seeing? No [email or web address] Information not available 05/25/2022 Are You Deaf Or Do You Have Serious Difficulty Hearing? 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 No Information not available 05/25/2022 What Was The Date Of Your Most Recent Tobacco Screening? 07/23/2024 [email or web address] Information not available 07/23/2024 Have You Recently Traveled Abroad? No [email or web address] Information not available 05/25/2022 Do You Have Difficulty Walking Or Climbing Stairs? No [email or web address] Information not available 05/25/2022 Sex: Unknown Functional Status Question Answer Note LastModified by Organizat ion Details LastModified Time Are you able to walk independently without assistance or assistive devices? YESWOREST [email or web address] Information not available 05/25/2022 Do you have difficulty doing errands alone? No [email or web address] Information not available 05/25/2022 Are you able to care for yourself independently? No [email or web address] Information not available 05/25/2022 Do you have difficulty dressing, bathing, grooming, or toileting? No [email or web address] Information not available 05/25/2022 Mental Status Question Answer Note LastModified by Organization D etails LastModified Time Do you have difficulty concentrating, remembering or making decisions? No [email or web address] Information no t available 05/25/2022 Family History Nothing Reported Notes:Father: Heart Disease Mother: Heart Disease Prostate Cancer Medical History No medical history recorded. Immunizations Vaccine Type Date Status Note Provider Nam e and Address Organization Details Recorded Time Influenza, split virus, quadrivalent, preservative 9 completed Roselia lynch [facility] 08/15/2023 08:54:11 Influenza, adjuvanted, trivalent, PF 7 completed Roselia lynch [facility] 08/15/2023 08:54:11 Influenza, MDCK, quadrivalent, PF 2 completed Roselia lynch [facility] 08/15/2023 08:54:11 zoster recombinant [facility] 08/15/2023 08:54:11 COVID-19, mRNA, LNP-S, PF, 100 mcg/0.5mL dose or 50 mcg/0.25mL dose [facility] L[facility]LB[facility]yCBrad[facility] 08/15/2023 08:54:11 COVID-19, mRNA, LNP-S, PF, 100 mcg/0.5mL dose or 50 mcg/0.25mL dose 1 [facility] L[facility]LB[facility]CBrad[facility] 08/15/2023 08:54:11 COVID-19, mRNA, LNP-S, PF, 100 mcg/0.5mL dose or 50 mcg/0.25mL dose 2 completed [facility], L.LBradyCBrady 08/15/2023 08:54:11 COVID-19, mRNA, LNP-S, bivalent, PF, 50 mcg/0.5 mL or 25mcg/0.25 mL dose 3 [address] [facility] L.LBradyCBrady 08/15/2023 08:54:11 pneumococcal polysaccharide PPV23 [address] [facility] L.LBradyCBrady 08/15/2023 08:54:11 Tdap 1 completed [facility] L.LBradyCBrady 08/15/2023 08:54:11 pneumococcal, unspecified formulation 1 [facility] L.LBradyCBrady 08/15/2023 08:54:11 Influenza, split virus, trivalent, preservative 4 [facility] 08/15/2023 08:54:11 Influenza, split virus, trivalent, preservative [address] [facility] 08/15/2023 08:54:11 Influenza, split virus, trivalent, preservative [address] [facility] 08/15/2023 08:54:11 Influenza, split virus, trivalent, preservative [address] [facility] 08/15/2023 08:54:11 Influenza, split virus, trivalent, PF [address] [facility] 08/15/2023 08:54:11 Influenza, split virus, trivalent, PF [address] [facility] 08/15/2023 08:54:11 Influenza, split virus, quadrivalent, PF [address] [facility] 08/15/2023 08:54:11 Hep A-Hep B [address] [facility] 08/15/2023 08:54:11 Hep A-Hep B [address] [facility] 08/15/2023 08:54:11 Hep A-Hep B [address] [facility] 08/15/2023 08:54:11 Influenza, split virus, quadrivalent, PF [address] [facility] 12/05/2023 10:23:43 Influenza, MDCK, trivalent, PF 4 completed Not Available [facility] 10/24/2024 10:02:21 COVID-19, mRNA, LNP-S, PF, 50 mcg/0.5 mL 4 completed Not Available [facility] 10/24/2024 10:02:21 Pneumococcal conjugate PCV20, polysaccharide DDS519 conjugate, adjuvant, PF 5 completed Not Available [facility] 10/24/2024 10:02:21 zoster recombinant 9 completed Roselia lynch [facility] 08/15/2023 08:54:11 Influenza, split virus, trivalent, preservative 5 completed Roselia lynch [facility] 08/15/2023 08:54:11 Td(adult) unspecified formulation 3 completed Not Available [facility] 09/24/2022 02:26:13 Past Encounters Encounter ID Performer Location Encounter Start Date Encounter Closed Date Diagnosis/Indication Diagnosis SNOMED-CT Code Diagnosis ICD10 Code Diagnosis IMO Codes Diagnosis Note [id number] ALYCIA ESCAMILLA PA-C [facility] ([facility]) [address] [place] [phone] 05/20/2022 10:24:37 05/20/2022 10:26:52 Dysuria 50090541 R30.0 [id number] MODESTO FRAZIER [facility] ([facility]) [address] [place] [address] 05/20/2022 15:52:25 05/20/2022 18:25:50 Pain of right knee joint 7266517489 75578 M25.561 needs increase in his OTC APAP for facility. We will allow him to take 2 OTC APAP every 6 hours PRN. Dysuria 20400524 R30.0 Urine gluc ose test = +++ 241771136 R81 [id number] Prashanth Wu DO [facility] ([facility]) [address] [place] [address] 05/25/2022 15:34:06 06/03/2022 19:51:41 Diabetes mellitus 53186230 E11.65 stopping victoza and farxiga due to side affects; agrees to starting insulinwil l check sugars bid and come back to review in 3 weeks [id number] Prashanth Wu DO [facility] ([facility]) [address] [place] [address] 5 06/15/2022 10:42:50 06/21/2022 08:41:42 Diabetes mellitus 18399901 E11.65 had to stop victoza and farxiga due to side affects; started tresiba; sugars reviewed and excellent Headache 45032203 R51.9 Nausea 048850813 R11.0 [id number] ALYCIA ESCAMILLA PA-C [facility] ([facility]) [address] [place] [id number] 5 08/29/2022 12:52:18 08/29/2022 13:55:02 Tinea cruris 533136210 B35.6 keep area dry [id number] Prashanth Wu DO [facility] ([facility]) [address] [place] [id number] 5 09/19/2022 10:31:17 09/19/2022 10:57:41 Diabetes mellitus 34175129 E11.65 a1c slightly up; did not bring glucose readings, but checkin regularly Candidiasis of skin 4988 3006 B37.2 [id number] Cassandra Cardenas MD [facility] ([facility]) [address] [place] [address] 5 11/01/2022 11:28:48 11/01/2022 14:37:15 Candidiasis of skin 29889456 B37.2 stop the clotrimazo le/betamet hasone. will start oral treatment and reassess in 1 week. [id number] Cassandra Cardenas MD [facility] ([facility]) [address] [place] [id number] 5 11/08/2022 10:24:52 11/08/2022 11:38:33 Candidiasis of skin 67092047 B37.2 resolved. [id number] Prashanth Wu DO [facility]) [address] [place] [address] 8[address] 5 12/27/2022 09:55:14 12/28/2022 12:01:31 Diabetes mellitus 19560109 E11.65 a1c slightly up; did not bring glucose readings, but checkin regularly Hyperlipidemia 68473975 E78.5 Hypertensive disorder 38 215908 I10 Manic bipo lar I disorder 68157605 F31.10 [id number] Lavelle Soriano MD [facility] ([facility]) [address] [place], [place] [address] 01/12/2023 13:58:56 01/12/2023 18:59:53 Conjunctivitis 2596245 H10.9 Acute sinusitis 51117177 J01.90 [id number] Prashanth Wu DO [facility] ([facility]) [address] [place] [address] 5 01/13/2023 10:35:09 01/22/2023 14:49:09 [id number] ALYCIA ESCAMILLA PA-C [facility] ([facility]) [address] [place] [address] 5 01/23/2023 13:25:24 01/23/2023 14:37:26 Cough 91798877 R05.9 COVID-19 030996738 U07.1 hold simvastati n x 5 days [id number] Prashanth Wu DO [facility] ([facility]) [address] [place], [place] [address] 02/24/2023 10:10:25 02/24/2023 12:33:49 Manic bipolar I disorder 66593734 F31.10 [id number] Prashanth Wu DO [facility] ([facility]) [address] [place], [place] [phone] 03/08/2023 09:40:38 03/08/2023 10:01:55 Insomnia 029017984 G47.00 Type 2 aden betes mellitus without complication 649652456 E11.9 Essential hypertension 53130571 I10 [id number] Prashanth Wu DO [facility] ([facility]) [address] [place], [place] [phone] 5 03/28/2023 13:33:15 03/28/2023 14:40:22 Diabetes mellitus 44897286 E11.65 a1c slightly up; did not bring glucose readings, but checkin regularly [id number] Prashanth Wu DO [facility] ([facility]) [address] [place] [address] 5 04/26/2023 12:09:04 04/26/2023 12:52:05 Coronary arteriosclerosis 68955044 I25.10 Diabetes mellitus 833980 09 E11.65 [id number] Prashanth Wu DO [facility] ([facility]) [address] [place] [address] 5 04/26/2023 12:44:29 04/27/2023 11:08:53 Manic bipolar I disorder 07851076 F31.10 [id number] Prashanth Wu DO [facility]) [address] [place], [place] [address] 07/12/2023 07:59:06 07/12/2023 09:20:22 [id number] Prashanth Wu DO [facility]) [address] [place] [address]74-[address] 5 07/12/2023 09:11:05 07/12/2023 10:47:42 Type 2 diabetes mellitus without complication 888723582 E11.9 Bipolar disorder 5090816 4 F31.9 Screening for malignant neoplasm of prostate 122546771 Z12.5 [id number] MODESTO GARCIA [facility] ([facility]) [address] [place] [address] 5 08/15/2023 08:51:13 08/15/2023 17:12:33 Contusion of lower leg 50282080 S80.12XA Discussed to continue physical therapy. May apply an ice pack for 10 minutes every 2 hours while awake. Return if you develop increased pain, swelling, redness, or concerns arise. [id number] Prashanth Wu DO [facility] ([facility]) [address] [place] [address] 5 09/22/2023 09:29:24 09/25/2023 11:07:56 Diabetes mellitus 18390366 E11.65 Manic bipo lar I disorder 06168414 F31.10 Long-term drug therapy 012470890 Z79.740 [id number] Prashanth Wu DO [facility] ([facility]) [address] [place] [phone] 5 10/20/2023 09:05:13 10/23/2023 11:20:40 Manic bipolar I disorder 73435358 F31.10 llv orders/ will fax yf [id number] MODESTO GARCIA [facility] ([facility]) [address] [place], [place] [phone] 5 12/05/2023 10:20:48 12/05/2023 14:52:34 Seasonal allergic rhinitis 209614395 J30.2 Rxn's written for his PRN med list. [id number] Prashanth Wu DO [facility] ([facility]) [address] [place] [address] 5 12/08/2023 09:58:30 12/08/2023 19:21:51 Essential hypertension 36655165 I10 Hyperlipidemia 82359637 E78.5 Manic bipo lar I disorder 22974923 F31.10 llv orders/ will fax yf [id number] Prashanth Wu DO [facility] ([facility]) [address] [place] [address] 5 01/17/2024 09:24:09 01/17/2024 10:50:37 Bipolar disorder 25287325 F31.9 Insomnia 425178711 G47.0 0 Hyperglyce miki due to type 2 diabetes mellitus 9742887552 08988 E11.65 Chronic ki dney disease stage 3 334982362 N18.30 [id number] Prashanth Wu DO [facility] ([facility]) [address] [place] [id number] 5 02/01/2024 10:17:02 02/02/2024 10:46:22 Bipolar disorder 75619358 F31.9 [id number] JONNATHAN LING APRN [facility] ([facility]) [address] [place] [address] 5 03/17/2024 13:00:16 03/17/2024 14:03:55 Infection of toe 577181959 L08.9 [id number] Constance Harrell DO [facility] ([facility]) [address] [place] [address] 5 04/26/2024 09:42:56 04/29/2024 11:42:35 Manic bipolar I disorder 34561301 F31.10 [id number] Constance Harrell DO [facility] ([facility]) [address] [place] [address] 06/04/2024 10:07:54 06/05/2024 11:00:59 Diabetes mellitus 15604339 E11.65 Hyperlipidemia 60809310 E78.5 Bipolar disorder 1337396 4 F31.9 [id number] Constance Harrell DO [facility] ([facility]) [address] [place] [address] 06/12/2024 09:20:39 06/12/2024 10:29:17 Bipolar disorder 49691469 F31.9 [place] 0.5 on 06/04/24. Stable, continue current tx. Continue seeing Dr. Garcia. 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 Brody. Paranoid schizophrenia 68517309 F20.0 Stable, continue current tx, seeing Dr. Garcia. Insomnia 956711233 G47.0 0 stable, on Melatonin 3mg. Hyperlipidemia 41095722 E78.5 Reviewed and discussed lipid panel, stable, continue current tx, Simvastati n 20mg daily. Hyperglyce miki due to type 2 diabetes mellitus 7611275656 93166 E11.65 E11.69 UaCr today. Reviewed and discussed recent lab. Continue current tx, Metformin, Lispro. Gastroesop hageal reflux disease 040468692 K21.9 Stable on Omeprazole . Essential hypertension 81157060 I10 Stable on Losartan, Metoprolol . History of myocardial infarction 321762614 I25.31 Mar 2023, with 1 cardiac stent placed. Following with [facility] . Continue Plavix and Asa. Chronic ki dney disease stage 3A 888065313 N18.31 Monitoring renal function. History of polyp of colon 851280526 Z86.0100 Colonoscop y Feb [address] Hernandez at [facility], to repeat Feb 2025. Skin ulcer of toe due to diabetes mellitus type 2 8907185379 7429664 E11.621 Right great toe, seeing [facility] wkly, dressing changes every other day. [id number] Constance Harrell DO [facility] ([facility]) [address] [place], [place] [address] 07/23/2024 10:22:30 07/24/2024 12:29:44 Accidental needle stick injury 7745417962 9547477 W46.0XXA [id number] MODESTO WILLIS [facility] ([facility]) [address] [place], [place] [address] 07/23/2024 09:15:45 07/23/2024 09:50:05 Tinea cruris 401333756 B35.6 [id number] Take medication as prescribed . Keep areas clean and dry. Wear loose fit, cotton underwear. Instructed to follow up promptly for any worsening of pain/no improvemen t. F/U PRN in walk-in for sx that do not continue to improve or worsen. Patient verbalizes understand ing and agreement with this plan of care. Will call with any questions or concerns. [id number] Lavelle Soriano MD [facility] ([facility]) [address] [place] [phone] 5 08/22/2024 15:12:45 08/23/2024 13:56:36 Intertrigo 85835367 L30.4 592 Patient does have erythema at the crease of both thighs but not consistent with infection. Recommend barrier cream and use Goldbond medicated body powder. Most likely related to increased heat and moisture. [id number] Constance Harrell DO [facility] ([facility]) [address] [place] [address] 5 10/04/2024 10:11:30 10/07/2024 10:55:37 Bipolar disorder 81247222 F31.9 [place] 0.5 on 06/04/24. Stable, continue current tx. Continue seeing Dr. Garcia. [id number] Constance Harrell DO [facility] ([facility]) [address] [place] [address] 5 10/24/2024 10:01:43 10/25/2024 10:38:24 Hyperglycemia due to type 2 diabetes mellitus 6063385225 40520 E11.65 E11.69 10/24/24: Lab today, will send in tvCompass Khris 3 plus, DM shoes. Hyperlipidemia 52316165 E78.5 stable, continue current tx, Simvastati n 20mg daily. Schizophrenia 60422414 F 20.9 stable. Chronic ki dney disease stage 3 962018830 N18.30 Monitoring renal function. Health Concerns Section Related Observation LastModified by Organization Detai ls LastModified Time None Recorded Concern Status LastModified by Organization Details LastModified Time None Recorded Advance Directives Directive None Recorded Payers Insurance Date Sequence Insurance Name Policy Number Policy Philippe Covered Member ID Philippe Member ID Guarantor Name 10/21/2024 1 [facility] - DUAL ELIGIBLE (MEDICARE REPLACEMENT/A DVANTAGE - HMO) MODSNP Sim Kraftd [id number] Simceleste Kraftd 04/11/2024 1 [employer] (MEDICARE REPLACEMENT/A DVANTAGE - HMO) [id number] Sim Kraftd [id number] Sim Abenad 10/04/2024 1 [place] - [place]) [id number] [facility] Abenad [id number] [facility] 08/15/2023 1 [place] DV[place] - [place]PO) [id number] [facility] Abenad [id number] [facility] Abenad 10/04/2024 2 [place] Sim Kraftd [id number] Sim [place] 10/04/2024 [place] [facility] Sim Kraftd [id number] [facility] Notes Date Note Type Note Provider Name and Address Organization Details Recorded Time 07/23/2024 text/html ROS as noted in the HPI walk inx 2days rash to groin/inner thighs-redness no other symptoms. No sores present. Has not used anything to treat symptoms. CARL TAN, CASH POSTING SPECIALIST [address] [place], [address], [facility] 07/23/2024 09:43:49 08/22/2024 text/html General Rash/Ski n LesionReported by PatientHPIFor location, patient reportsother: (groin). For quality, patient reportsnot itchyandnot painful. For severity, patient reportsmoderate. For duration, patient reportshas noted for <1 week. For context, patient reportsno new detergents or skin productsandno one else with similar rash.ROS as noted in the HPI walk-in; PCP Dr. Harrell Patient has a rash in his groin area that he's had for several days. snf has been using clotrimazole cream on it but doesn't seem to be helping. Patient says that rash is not painful or itchy. Lavelle Soriano MD [address] [place] [address], [phone], [facility] 08/22/2024 18:05:12 10/24/2024 text/html ROS as noted in the HPI Pt presents for recheck on DM A1c 6.2 on 06/04/24.He reports fasting glucose will get down to 80-100 at times. He has been seeing Dr. Cunningham, reports he clipped a couple tendons in my right big toe , sees him again in 1 week.He is needing new order for diabetic shoes and needs foot exam. He is concerned that since he recently changed insurance to [facility] that his sensors will not be covered Constance Harrell DO [address] [place] [address], [id number], [facility] 10/24/2024 14:08:17
[2025-02-16] MEDS: LORazepam 2 mg/mL INJ 1 mL 1 MG IM (15:50)
== END 2025-02-16 15:55 | disposition home or self-care (01) ==
PROVIDERS: Emergency Provider Emergency Medicine; PCP Electrodiagnostic Medicine
DX: F41.9 Anxiety disorder, unspecified (principal); Z79.84 Long term (current) use of oral hypoglycemic drugs; Z79.02 Long term (current) use of antithrombotics/antiplatelets; Z79.82 Long term (current) use of aspirin; Z79.4 Long term (current) use of insulin; Z87.891 Personal history of nicotine dependence; E11.22 Type 2 diabetes mellitus with diabetic chronic kidney disease; N18.9 Chronic kidney disease, unspecified
CPT/HCPCS: 96372; 99284; J2060

== ENCOUNTER 2025-02-24 13:12 | Emergency (ER) | payer MEDICARE, MEDICAID, SELFPAY ==
--- OUTSIDE RECORDS SUMMARY | 2025-02-24 13:25 | XMS_ITS | Data Portability ---
Author Organization [facility] Riaz Zhang [facility], [facility] Address [address] [address] Care Team Providers Care Emt/Dispatcher Name Role Phone MARTA NAILSD Internal Medicine ROSEYJUANITO Internal Medicine CONSTANCE HARRELL Primary Care Provider Unavailabl e Assessment Encounter Date Assessment Date Assessment LastModified by Organization Details LastModified Time 10/24/2024 10/24/2024 Document scribed by Cr Phillips [employer] Toilet Water Maker. I was present during interview and exam. I have reviewed and agree with above documentation . Dr. Constance Harrell. Assisted living paperwork filled out and provided back to pt today. [email or web address] Not available 10/24/2024 10:56:51 Plan of Treatment Reminders Order Date Submit Date Provider Last Modified By Organization Details Last Modified Time Details Appointments ACUTE VISIT 2024 10:20A M WALK-IN Not available Not available Not available OFFICE VISIT 10 2025 04:10P M Constance Harrell, DO Not available Not available Not available Lab hemoglobi n A1C/hemog lobin total, QN, blood 2024 025 [email or web address] 7 [facility], [address], [facility], [place], [address], 10/24/2024 13:14:32 CMP, serum or plasma 2024 025 [email or web address] 7 [facility], [address] [facility], [address], [place], [address], 10/24/2024 13:14:32 CBC 2024 025 [email or web address] 7 [facility], [address], [address], [place], [address], 10/24/2024 13:14:32 lithium, serum - LLV ORDERS 2024 [employer] [facility], [address] [facility] , [address], [place], [address], 10/05/2024 08:37:23 Referral None recorded. Procedures None recorded. Surgeries None recorded. Imaging None recorded. Medication Orders Desitin 40 % topical paste 2024 [facility], [address] [place] [address], [id number], 08/23/2024 13:48:01 Gold Mcgill Medicated Body 0.8 % topical powder 2024 [facility], [address] [place] [address], [address], 08/23/2024 13:48:03 clotrimaz ole 1 % topical cream 2024 025 [facility], [address] [place] [address], [address], 07/23/2024 14:43:24 Patient TargetsNo targets recorded. Patient InstructionsNo instructions recorded. Reason for Referral None Reported. Results Created Date Observation Date Name Description Value Unit Range Abnormal Flag Note LastModifiedBy Organization Detail LastModifiedTime 07/24/1907/24/2024 HEPAT ITIS B SURFA CE ANTIG EN W/REF L CONFI RM hepatitis B surface antigen NON-RE ACTIVE non-re active normal For addit ional infor corrie amaro e refer to http: //[facility] catbrian n.que stdia gnost ics.c om/fa q/FAQ (This link is being provi ded for infor jacquie nal/ educa angel l purpo ses only. ) Not Available [facility] [address] [place], [address], 07/24/2024 12:43:53 07/24/1907/24/2024 HIV 1/2 ANTIG EN/AN [...] state law prohi bits you from basil tierney furth er discl osure of the infor [...] pleas e refer to http: //[facility] catbrian townsend.que stdia gnost ics.c om/fa q/FAQ 106 (This link is being provi ded for infor matio nal/ educa angel l purpo ses only. ) The perfo rmanc e of this assay has not been clini lani valid ated in patie nts less than 2 years old. Not Available [facility] [address] [place], [address], 07/24/2024 12:43:54 07/24/1907/24/2024 HCV RNA, QUANT ITATI VE REAL TIME PCR HCV RNA, quantitative real time PCR <15 NOT DETECT ED IU/mL not detect ed normal Not Available [facility] [address] [place], [address], 07/24/2024 12:43:55 07/24/1907/24/2024 HCV RNA, QUANT ITATI VE REAL TIME PCR HCV RNA, quantitative real time PCR <1.18 NOT DETECT ED log_I U/mL not detect ed normal For addit ional luis angelr corrie amaro refer to http: //[facility] erika rebolledo stdia gnost ics.c om/fa q/FAQ 22v1 (This link is being provi ded for infor jacquie gates/ educstefan sanches purpo ses only. ) Not Available [facility] [address] [place], [address], 07/24/2024 12:43:55 10/05/1910/05/2024 LITHI UM lithium 0.5 mmol/ L 0.6-1. 2 low Not Available [facility] [address] [place], [address], 10/05/2024 08:37:23 10/18/1910/24/2024 CBC WBC 10.7 x10 4.5-10 .5 high Not Available [facility] [address] [facility] [address], [place], [address], 10/24/2024 11:40:16 10/18/19 25 10/24/2024 CBC RBC 4.91 x10 4.30-5 .90 Not Available [facility] [address] [facility] [address], [place], [address], 10/24/2024 11:40:16 10/18/19 25 10/24/2024 CBC HGB 15.9 g/dL 13.5-1 8.0 Not Available [facility] [address] [facility] 1, [place], [address], 10/24/2024 11:40:16 10/18/19 25 10/24/2024 CBC HCT 48.7 % 35.0-6 0.0 Not Available [facility] [address] [facility] 1, [place], [address], 10/24/2024 11:40:16 10/18/1910/24/2024 CBC MCV 99.2 fL 80.0-9 9.9 Not Available [facility] [address] [facility] 1, [place], [address], 10/24/2024 11:40:16 10/18/1910/24/2024 CBC MCH 32.3 pg 27.0-3 2.0 high Not Available [facility] [address] [facility] 1, [place], [address], 10/24/2024 11:40:16 10/18/1910/24/2024 CBC MCHC 32.6 g/dL 32.0-3 6.0 Not Available [facility] [address] [facility] 1, [place], [address], 10/24/2024 11:40:16 10/18/19 25 10/24/2024 CBC RDW 13.0 % 11.5-1 4.5 Not Available [facility] [address] [facility] 1, [place], [address], 10/24/2024 11:40:16 10/18/1910/24/2024 CBC plt 175.3 x10 150.0- 451.0 Not Available [facility] [address] [facility], [place], [address], 10/24/2024 11:40:16 10/18/1910/24/2024 CBC lymphocytes % 10.8 % 20.0-5 0.0 low Not Available [facility] [address] [facility] [address], [place], [address], 10/24/2024 11:40:16 10/18/1910/24/2024 CBC granulcytes % 80.3 % 30.0-7 0.0 high Not Available [facility] [address] [facility] [address], [place], [address], 10/24/2024 11:40:16 10/18/19 25 10/24/2024 CBC monocytes % 5.9 % 2.0-16 .0 Not Available [facility] [address] [facility] [address], [place], [address], 10/24/2024 11:40:16 10/18/19 25 10/24/2024 CBC granulcytes# 8.6 x10 Not Jana ilable [facility] [address] [facility] [address], [place], [address], 10/24/2024 11:40:16 10/18/19 25 10/24/2024 CBC lymphocytes # 1.2 x10 Not Available [facility] [address] [address], [place], [address], 10/24/2024 11:40:16 10/18/1910/24/2024 CBC monocytes # 0.6 x10 Not Avai lable [facility] [address] [address], [place], [address], 10/24/2024 11:40:16 10/18/1910/24/2024 HBA1C hemaglobin A1C 6.8 4.2-6. 5 high Not Available [facility] [address] [address], [place], [address], 10/24/2024 11:52:25 10/18/19 25 10/24/2024 CMP (MALE ) glucose 176.0 mg/dL 60.0-9 9.0 high Not Available [facility] [address] [address], [place], [address], 10/24/2024 12:21:29 10/18/19 25 10/24/2024 CMP (MALE ) BUN (blood urea nitrogen) 23.0 mg/dL 10.0-2 6.0 Not Available [facility] [address] [facility], [place], [address], 10/24/2024 12:21:29 10/18/19 25 10/24/2024 CMP (MALE ) creatinine (serum) 1.7 mg/dL 0.4-1. 5 high Not Available [facility] [address] [facility], [place], [address], 10/24/2024 12:21:29 10/18/19 25 10/24/2024 CMP (MALE ) BUN/creatini ne ratio 13.53 ratio Not Available [facility] [address] [facility], [place], [address], 10/24/2024 12:21:29 10/18/19 25 10/24/2024 CMP (MALE ) eGFR calculated 43.2 Not Available [facility] [address] [facility], [place], [address], 10/24/2024 12:21:29 10/18/19 25 10/24/2024 CMP (MALE ) total protein 7.6 g/dL 6.0-8. 5 Not Available [facility] [address] [facility] 1, [place], [address], 10/24/2024 12:21:29 10/18/19 25 10/24/2024 CMP (MALE ) total bilirubin 0.7 mg/dL 0.2-1. 3 Not Available [facility] [address] [facility] [address] [address], [place], [address], 10/24/2024 12:21:29 10/18/19 25 10/24/2024 CMP (MALE ) albumin 4.5 g/dL 3.5-5. 5 Not Available [facility] [address] [facility] [address] [address], [place], [address], 10/24/2024 12:21:29 10/18/19 25 10/24/2024 CMP (MALE ) globulin 3.1 calc Not Available [facility] [address] [facility] 1, [place], [address], 10/24/2024 12:21:29 10/18/19 25 10/24/2024 CMP (MALE ) AST (SGOT) 23.0 U/L 0.0-46 .0 Not Available [facility] [address] [place] [facility], [place], [address], 10/24/2024 12:21:29 10/18/19 25 10/24/2024 CMP (MALE ) altv (SGPT) 21.0 U/L 13.0-6 9.0 normal Not Available [facility] [address] [place] [facility], [place], [address], 10/24/2024 12:21:29 10/18/19 25 10/24/2024 CMP (MALE ) A/G ratio 1.5 ratio Not Available [facility] [address] [place] [facility], [place], [address], 10/24/2024 12:21:29 10/18/19 25 10/24/2024 CMP (MALE ) ALP phos 85.0 U/L 30.0-1 40.0 normal Not Available [facility] [address] [place] [address] [facility] 1, [place], [address], 10/24/2024 12:21:29 10/18/19 25 10/24/2024 CMP (MALE ) calcium 9.6 mg/dL 8.4-10 .5 Not Available [facility] [address] [facility] Julianna [facility], [place], [address], 10/24/2024 12:21:29 10/18/19 25 10/24/2024 CMP (MALE ) sodium 146.0 mmol/ L 136.0- 145.0 high Not Available [facility] [address] [facility] [address], [place], [address], 10/24/2024 12:21:29 10/18/19 25 10/24/2024 CMP (MALE ) potassium 4.2 mmol/ L 3.5-5. 1 Not Available [facility] [address] [facility] [address], [place], [address], 10/24/2024 12:21:29 10/18/19 25 10/24/2024 CMP (MALE ) chloride 114.0 mmol/ L 98.0-1 10.0 abnormal Not Available [facility] [address], [place], [address], 10/24/2024 12:21:29 10/18/19 25 10/24/2024 CMP (MALE ) C02 22.0 mmol/ L 22.0-3 1.0 Not Available [facility] [address] [facility] [address], [place], [address], 10/24/2024 12:21:29 10/18/19 25 10/24/2024 CMP (MALE ) anion gap 10.0 calc Not Available [facility] [address], [place], [address], 10/24/2024 12:21:29 10/18/1910/24/2024 CMP (MALE ) osmolality 308.5 calc Not Available [facility] [address] [facility] 1, [place], [address], 10/24/2024 12:21:29 Result Notes None recorded. Problems Name Problem SNOMED Code Status Onset Date Resolution Date Notes Provider Name and Address Organization Details Recorded Time Insomnia 921095276 Active 2022 MONI Chawla - [facility] 5 09:57:37 Schizophren ia 57994918 Active 2022 Cr Phillips [facility], [facility] 5 09:56:34 Viral hepatitis C 28231986 Active 2022 Cr Phillips [facility], [facility] 5 09:56:41 Gastroesoph ageal reflux disease 987420439 Active 2022 Cr [facility], [facility] 5 09:58:29 Hepatitis C carrier 836390230 Active 2022 Cr Phillips [facility], [facility] 5 10:02:04 Hyperlipide miki 36921997 Active 2022 Cr Phillips [facility], [facility] 5 09:57:46 Constipatio n 55389257 Active 2022 Anna Be [facility], [facility] 5 09:22:49 Essential hypertensio n 90985710 Active 2023 Anna Be [facility], [facility] 5 09:22:49 Bipolar disorder 43338650 Active 2023 Anna Be [facility], [facility] 5 09:22:49 Hyperglycem ia due to type 2 diabetes mellitus 8263250946961 09 Active 2023 Anna Be [facility], [facility] 5 09:22:49 Chronic kidney disease stage 3 121571091 Active 2023 Anna Be [facility] 5 09:22:49 History of polyp of colon 379206357 Active 2024 Cr lynch [facility] L[facility]CBrady 5 10:17:46 History of myocardial infarction 035367131 Active 2024 Cr lynch [facility]CB[facility]y 5 10:17:48 Skin ulcer of toe due to diabetes mellitus type 2 0978681190451 9102 Active 2024 Cr lynch [facility], L.LBradyCBrady 5 10:23:05 Intertrigo 76105385 Active 2024 Lavelle Soriano MD [address] [place] [address], [address] , [facility], DanieLBradyCBrady 5 15:41:30 Problem Notes None recorded. Procedures Surgical History Date Name Laterality Status Provider Name and Address Organization Details Recorded Time extraction of cataract completed Anna Be [facility], DanieLVinod 06/12/2024 09:35:59 Imaging Results None recorded. Procedure [...] BY MOUTH EVERY DAY FOR CONSTIPA TION active Not Available Not Available No t Available zolpidem 10 mg tablet TAKE ONE TABLET [...] d then back to prn daily cs/smf; 17015; Recorded 01/13/20 22 1:20PM by Kerry Barajas RN (Authori matilde through Prashanth Wu DO), Refill Request; Refill Quantity : 30; Tablet; Not Available Not Available Not Available lithium carbonate two times daily 11/01 completed CS/smf; 96576; Recorded 12/21/19 11:40AM by Kerry Barajas RN (Authori zed through Prashanth Wu DO), Refill Request; Refill Quantity : 60; Tablet; Not Available Not Available Not Available lancets two times daily 11/08 completed cs/smf; 79415; Recorded 11/25/19 11:59AM by Kerry Barajas RN [...] metformin two times daily 11/01 completed cs/smf; 19217; Recorded 05/10/19 6:18PM by Azra Grant (Authori zed through Lavelle Soriano MD), Refill Request; Refill Quantity : 60; Tablet; Not Available Not Available Not Available Vitamin daily 11/08 completed cs/smf; 25073; Recorded 03/16/19 8:07AM by Kerry Barajas RN (Authori zed through Prashanth Wu DO), Refill Request; Refill Quantity : 30; Tablet; Not Available Not Available Not Available One Touch Ultra Test Strips two times daily 08/14 completed Not Available Not Available Not Available Potassium Chloride ER daily 11/01 completed cs/smf; 47529; Recorded 04/04/19 12:05PM by Kerry Barajas RN (Authori zed through [...] Farxiga daily 11/01 completed dose increase cs/smf; 63126; Recorded 02/23/20 22 2:10PM by Kerry Barajas RN (Authori matilde through Prashanth Wu DO), Refill Request; Refill [...] e Micro Pen Needle 32 gauge x 1/4 USE DIRECTED WITH INSULIN active Not Available [...] Available No t Available FreeStyle Khris 2 [place] USE DIRECTED TO TEST BLOOD SUGAR 10/24 completed Not Available Not Available Not Available losartan potassium (bulk) daily 11/01 completed cs/smf; 77644; Recorded 03/16/19 23 9:40AM by Kerry Barajas RN (Authori zed through Prashanth Wu DO), Annotati on/Adden dum; [...] and Address Organization Details Last Updated DateTime 182.88 cm 27 kg/m2 86295.2 8 g 99 % 63 /min 97.8 [degF] 118/70 mm[Hg] Tarah Tony [facility] 5 09:23:49 Date Recorded Body height Body mass index (BMI) Body weight Respiratory rate Body temperature Heart rate Oxygen saturation Systolic And Diastolic Provider Name and Address Organization Details Last Updated DateTime 5 182.88 cm 27.2 kg/m2 12561.8 7 g 16 /min 98.3 [degF] 60 /min 98 % 120/74 mm[Hg] NASIR ZULETA [facility] 5 15:21:51 Date Recorded Body height Body mass index (BMI) Body weight Oxygen saturation Heart rate Respiratory rate Systolic And Diastolic Provider Name and Address Organization Details Last Updated DateTime 5 182.88 cm 26.6 kg/m2 34096.8 g 96 % 78 /min 18 /min 120/70 mm[Hg] Anna Billingsleye [facility] 5 10:19:27 Date Recorded Body height Body mass index (BMI) Body weight Oxygen saturation Heart rate Respiratory rate Body temperature Systolic And Diastolic Provider Name and Address Organization Details Last Updated DateTime 5 182.88 cm 27.4 kg/m2 25967.6 6 g 99 % 84 /min 16 /min 98.2 [degF] 126/80 mm[Hg] Lisa Mitchell [facility] 5 11:38:32 Social History Question Answer Notes LastModified by Organizat ion Details LastModified Time Tobacco Smoking Status Former Smoker quit in 2005 Cr lynch [facility] 06/12/2024 10:15:14 Are You Blind Or Do You Have Difficulty Seeing? No [email or web address] Information not available 05/25/2022 Are You Deaf Or Do You Have Serious Difficulty Hearing? 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 No [email or web address] Information not available 05/25/2022 What Was The Date Of Your Most Recent Tobacco Screening? 02/24/2025 [email or web address] Information not available 02/24/2025 Have You Recently Traveled Abroad? No Information not available 05/25/2022 Do You Have Difficulty Walking Or Climbing Stairs? No [email or web address] Information not available 05/25/2022 Sex: Unknown Functional Status Question Answer Note LastModified by Organizat ion Details LastModified Time Are you able to walk independently without assistance or assistive devices? YESWOREST [email or web address] Information not available 05/25/2022 Do you have difficulty doing errands alone? No Information not available 05/25/2022 Are you able to care for yourself independently? No [email or web address] Information not available 05/25/2022 Do you have difficulty dressing, bathing, grooming, or toileting? No [email or web address] Information not available 05/25/2022 Mental Status Question Answer Note LastModified by Organization D etails LastModified Time Do you have difficulty concentrating, remembering or making decisions? No [email or web address] Information no t available 05/25/2022 Family History Nothing Reported Notes:Father: Heart Disease Mother: Heart Disease Prostate Cancer Medical History No medical history recorded. Immunizations Vaccine Type Date Status Note Provider Nam e and Address Organization Details Recorded Time Influenza, split virus, quadrivalent, preservative 9 completed Roselia lynch [facility]CBrady 08/15/2023 08:54:11 Influenza, adjuvanted, trivalent, PF 7 completed Roselia lynch [facility] 08/15/2023 08:54:11 Influenza, MDCK, quadrivalent, PF 2 completed Roselia lynch [facility] 08/15/2023 08:54:11 zoster recombinant 8 completed Roselia lynch [facility]CBrady 08/15/2023 08:54:11 COVID-19, mRNA, LNP-S, PF, 100 mcg/0.5mL dose or 50 mcg/0.25mL dose 1 [facility] 08/15/2023 08:54:11 COVID-19, mRNA, LNP-S, PF, 100 mcg/0.5mL dose or 50 mcg/0.25mL dose 1 completed [facility] 08/15/2023 08:54:11 COVID-19, mRNA, LNP-S, PF, 100 mcg/0.5mL dose or 50 mcg/0.25mL dose 2 completed [facility] 08/15/2023 08:54:11 COVID-19, mRNA, LNP-S, bivalent, PF, 50 mcg/0.5 mL or 25mcg/0.25 mL dose 3 completed [facility] 08/15/2023 08:54:11 pneumococcal polysaccharide PPV23 1 completed [facility] 08/15/2023 08:54:11 Tdap 1 completed [facility] 08/15/2023 08:54:11 pneumococcal, unspecified formulation 1 completed [facility] 08/15/2023 08:54:11 Influenza, split virus, trivalent, preservative 4 completed [facility] 08/15/2023 08:54:11 Influenza, split virus, trivalent, preservative 7 completed [facility] 08/15/2023 08:54:11 Influenza, split virus, trivalent, preservative 1 completed Roselia Pliler null, [facility] 08/15/2023 08:54:11 Influenza, split virus, trivalent, preservative 3 completed Roselia Pliler null, [facility] 08/15/2023 08:54:11 Influenza, split virus, trivalent, PF 6 completed Roselia Pliler null, [facility] 08/15/2023 08:54:11 Influenza, split virus, trivalent, PF 5 completed Roselia Pliler null, [facility] 08/15/2023 08:54:11 Influenza, split virus, quadrivalent, PF 0 completed Roselia Pliler null, [facility] 08/15/2023 08:54:11 Hep A-Hep B 5 completed Roselia Pliler null, [facility] 08/15/2023 08:54:11 Hep A-Hep B 4 completed Roselia Pliler null, [facility] 08/15/2023 08:54:11 Hep A-Hep B 4 completed Roselia Pliler null, [facility] 08/15/2023 08:54:11 Influenza, split virus, quadrivalent, PF 3 completed Roselia Pliler null, [facility] 12/05/2023 10:23:43 Influenza, MDCK, trivalent, PF 4 completed Not Available [facility] 10/24/2024 10:02:21 COVID-19, mRNA, LNP-S, PF, 50 mcg/0.5 mL 4 completed Not Available [facility] 10/24/2024 10:02:21 Pneumococcal conjugate PCV20, polysaccharide [id number] conjugate, adjuvant, PF 5 completed Not Available [facility] 10/24/2024 10:02:21 zoster recombinant 9 completed Roselia lynch [facility] 08/15/2023 08:54:11 Influenza, split virus, trivalent, preservative 5 completed Roselia lynch [facility] 08/15/2023 08:54:11 Td(adult) unspecified formulation 3 completed Not Available [facility] 09/24/2022 02:26:13 Past Encounters Encounter ID Performer Location Encounter Start Date Encounter Closed Date Diagnosis/Indication Diagnosis SNOMED-CT Code Diagnosis ICD10 Code Diagnosis IMO Codes Diagnosis Note [id number] ALYCIA ESCAMILLA PA-C [facility] ([facility] [address] [place] [address] 05/20/2022 10:24:37 05/20/2022 10:26:52 Dysuria 61804007 R30.0 [id number] MODESTO FRAZIER [facility] ([facility]) [address] [place] [phone] 05/20/2022 15:52:25 05/20/2022 18:25:50 Pain of right knee joint 3481683385 65787 M25.561 needs increase in his OTC APAP for facility. We will allow him to take 2 OTC APAP every 6 hours PRN. Dysuria 81665936 R30.0 Urine gluc ose test = +++ [id number] R81 [id number] Prashanth Wu DO [facility] ([facility]) [address] [place] [phone] 05/25/2022 15:34:06 06/03/2022 19:51:41 Diabetes mellitus 51649370 E11.65 stopping victoza and farxiga due to side affects; agrees to starting insulinwil l check sugars bid and come back to review in 3 weeks 7158 Prashanth Wu DO [facility] ([facility]) [address] [place] [address] [phone] 5 06/15/2022 10:42:50 06/21/2022 08:41:42 Diabetes mellitus 79239796 E11.65 had to stop victoza and farxiga due to side affects; started tresiba; sugars reviewed and excellent Headache 87611756 R51.9 Nausea 288496746 R11.0 [id number] ALYCIA ESCAMILLA PA-C [facility] ([facility]) [address] [place] [address] [phone] 5 08/29/2022 12:52:18 08/29/2022 13:55:02 Tinea cruris 140762572 B35.6 keep area dry [id number] Prashanth Wu DO [facility] ([facility]) [address] [place] [address] [phone] 5 09/19/2022 10:31:17 09/19/2022 10:57:41 Diabetes mellitus 14629587 E11.65 a1c slightly up; did not bring glucose readings, but checkin regularly Candidiasis of skin 4988 3006 B37.2 [id number] Cassandra Cardenas MD [facility] ([facility]) [address] [place] [address] [phone] 5 11/01/2022 11:28:48 11/01/2022 14:37:15 Candidiasis of skin 82106493 B37.2 stop the clotrimazo le/betamet hasone. will start oral treatment and reassess in 1 week. [id number] Cassandra Cardenas MD [facility] ([facility]) [address] [place] [address] [phone] 5 11/08/2022 10:24:52 11/08/2022 11:38:33 Candidiasis of skin 55239058 B37.2 resolved. [id number] Prashanth Wu DO [facility] ([facility]) [address] [place] [address] [phone] 5 12/27/2022 09:55:14 12/28/2022 12:01:31 Diabetes mellitus 24476952 E11.65 a1c slightly up; did not bring glucose readings, but checkin regularly Hyperlipidemia 09035829 E78.5 Hypertensive disorder 38 237780 I10 Manic bipo lar I disorder 16235940 F31.10 [id number] Lavelle Soriano MD [facility] ([facility]) [address] [place] [address] [phone] 5 01/12/2023 13:58:56 01/12/2023 18:59:53 Conjunctivitis 2266280 H10.9 Acute sinusitis 40692820 J01.90 [id number] Prashanth Wu DO [facility] ([facility]) [address] [place] [address] [phone] 5 01/13/2023 10:35:09 01/22/2023 14:49:09 [id number] ALYCIA ESCAMILLA PA-C [facility] ([facility]) [address] [place], [place] [phone] 5 01/23/2023 13:25:24 01/23/2023 14:37:26 Cough 88198110 R05.9 COVID-19 071857450 U07.1 hold simvastati n x 5 days [id number] Prashanth Wu DO [facility] ([facility]) [address] [place] [address] [phone] 5 02/24/2023 10:10:25 02/24/2023 12:33:49 Manic bipolar I disorder 11925867 F31.10 [id number] Prashanth Wu DO [facility] ([facility]) [address] [place] [address] [phone] 5 03/08/2023 09:40:38 03/08/2023 10:01:55 Insomnia 709182832 G47.00 Type 2 aden betes mellitus without complication 595869805 E11.9 Essential hypertension 41305724 I10 [id number] Prashanth Wu DO [facility]) [address] [place] [address] [phone] 5 03/28/2023 13:33:15 03/28/2023 14:40:22 Diabetes mellitus 74281869 E11.65 a1c slightly up; did not bring glucose readings, but checkin regularly [id number] Prashanth Wu DO [facility] ([facility]) [address] [place] [address] [phone] 5 04/26/2023 12:09:04 04/26/2023 12:52:05 Coronary arteriosclerosis 73097606 I25.10 Diabetes mellitus 439389 09 E11.65 [id number] Prashanth Wu DO [facility]) [address] [place] [address] [phone] 5 04/26/2023 12:44:29 04/27/2023 11:08:53 Manic bipolar I disorder 43283619 F31.10 [id number] Prashanth Wu DO [facility]) [address] [place] [address] [phone] 5 07/12/2023 07:59:06 07/12/2023 09:20:22 [id number] Prashanth Wu DO [facility] ([facility]) [address] [place], [place] [phone] 5 07/12/2023 09:11:05 07/12/2023 10:47:42 Type 2 diabetes mellitus without complication 948800795 E11.9 Bipolar disorder 3989384 4 F31.9 Screening for malignant neoplasm of prostate 372234244 Z12.5 [id number] MODESTO GARCIA [facility]) [address] [place] [address] [phone] 5 08/15/2023 08:51:13 08/15/2023 17:12:33 Contusion of lower leg 54031405 S80.12XA Discussed to continue physical therapy. May apply an ice pack for 10 minutes every 2 hours while awake. Return if you develop increased pain, swelling, redness, or concerns arise. [id number] Prashanth Wu DO [facility] ([facility]) [address] [place] [address] [phone] 5 09/22/2023 09:29:24 09/25/2023 11:07:56 Diabetes mellitus 98416067 E11.65 Manic bipo lar I disorder 60801185 F31.10 Long-term drug therapy 935752759 Z79.424 [id number] Prashanth Wu DO [facility]) [address] [place] [address] [phone] 5 10/20/2023 09:05:13 10/23/2023 11:20:40 Manic bipolar I disorder 20756073 F31.10 llv orders/ will fax yf [id number] MODESTO GARCIA [facility]) [address] [place], [place] [phone] 5 12/05/2023 10:20:48 12/05/2023 14:52:34 Seasonal allergic rhinitis 163521840 J30.2 Rxn's written for his PRN med list. [id number] Prashanth Wu DO [facility]) [address] [place] [address] 5 12/08/2023 09:58:30 12/08/2023 19:21:51 Essential hypertension 20965589 I10 Hyperlipidemia 47405699 E78.5 Manic bipo lar I disorder 88712357 F31.10 llv orders/ will fax yf [id number] Prashanth Wu DO [facility]) [address] [place] [address] 5 01/17/2024 09:24:09 01/17/2024 10:50:37 Bipolar disorder 77119965 F31.9 Insomnia 433766901 G47.0 0 Hyperglyce miki due to type 2 diabetes mellitus 6584376293 68057 E11.65 Chronic ki dney disease stage 3 071681470 N18.30 [id number] Prashanth Wu DO [facility]) [address] [place] [address] [phone] 5 02/01/2024 10:17:02 02/02/2024 10:46:22 Bipolar disorder 70193207 F31.9 [id number] JONNATHAN LING APRN [facility] ([facility]) [address] [place], [place] [phone] 5 03/17/2024 13:00:16 03/17/2024 14:03:55 Infection of toe 321465371 L08.9 [id number] Constance Harrell DO [facility]) [address] [place] [address] [phone] 5 04/26/2024 09:42:56 04/29/2024 11:42:35 Manic bipolar I disorder 56547730 F31.10 [id number] Constance Harrell DO [facility]) [address] [place] [address] 5 06/04/2024 10:07:54 06/05/2024 11:00:59 Diabetes mellitus 07729489 E11.65 Hyperlipidemia 48760420 E78.5 Bipolar disorder 9349078 4 F31.9 [id number] Constance Harrell DO [facility]) [address] [place] [address] [phone] 5 06/12/2024 09:20:39 06/12/2024 10:29:17 Bipolar disorder 57639680 F31.9 [place] 0.5 on 06/04/24. Stable, continue current tx. Continue seeing Dr. Garcia. 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 Brody. Paranoid schizophrenia 12455982 F20.0 Stable, continue current tx, seeing Dr. Garcia. Insomnia 515671821 G47.0 0 stable, on Melatonin 3mg. Hyperlipidemia 93798717 E78.5 Reviewed and discussed lipid panel, stable, continue current tx, Simvastati n 20mg daily. Hyperglyce miki due to type 2 diabetes mellitus 1755552278 79181 E11.65 E11.69 UaCr today. Reviewed and discussed recent lab. Continue current tx, Metformin, Lispro. Gastroesop hageal reflux disease 037011999 K21.9 Stable on Omeprazole . Essential hypertension 67818850 I10 Stable on Losartan, Metoprolol . History of myocardial infarction 328345422 I25.31 Mar 2023, with 1 cardiac stent placed. Following with [facility] . Continue Plavix and Asa. Chronic ki dney disease stage 3A 587887726 N18.31 Monitoring renal function. History of polyp of colon 893678353 Z86.0100 Colonoscop y Feb [address] Hernandez at [facility], to repeat Feb 2025. Skin ulcer of toe due to diabetes mellitus type 2 4173645000 7796352 E11.621 Right great toe, seeing [facility] wkly, dressing changes every other day. [id number] Constance Harrell DO [facility]) [address] [place] [address] [phone] 5 07/23/2024 10:22:30 07/24/2024 12:29:44 Accidental needle stick injury 1676580506 1502995 W46.0XXA [id number] MODESTO WILLIS [facility]) [address] [place] [address] [phone] 5 07/23/2024 09:15:45 07/23/2024 09:50:05 Tinea cruris 247407426 B35.6 28993 Take medication as prescribed . Keep areas clean and dry. Wear loose fit, cotton underwear. Instructed to follow up promptly for any worsening of pain/no improvemen t. F/U PRN in walk-in for sx that do not continue to improve or worsen. Patient verbalizes understand ing and agreement with this plan of care. Will call with any questions or concerns. [id number] Lavelle Soriano MD [facility]) [address] [place] [address] [phone] 5 08/22/2024 15:12:45 08/23/2024 13:56:36 Intertrigo 89938358 L30.4 592 Patient does have erythema at the crease of both thighs but not consistent with infection. Recommend barrier cream and use Goldbond medicated body powder. Most likely related to increased heat and moisture. [id number] Constance Harrell DO [facility]) [address] [place] [address] [phone] 5 10/04/2024 10:11:30 10/07/2024 10:55:37 Bipolar disorder 35076515 F31.9 [place] 0.5 on 06/04/24. Stable, continue current tx. Continue seeing Dr. Garcia. [id number] Constance Harrell DO [facility]) [address] [place] [address] [phone] 5 10/24/2024 10:01:43 10/25/2024 10:38:24 Hyperglycemia due to type 2 diabetes mellitus 7010452325 99487 E11.65 E11.69 10/24/24: Lab today, will send in Freestyle Khris 3 plus, DM shoes. Hyperlipidemia 36628678 E78.5 stable, continue current tx, Simvastati n 20mg daily. Schizophrenia 23701734 F 20.9 stable. Chronic ki dney disease stage 3 118455740 N18.30 Monitoring renal function. [id number] MODESTO GARCIA [facility]) [address] [place] [address] 02/24/2025 11:27:36 02/24/2025 13:15:40 Health Concerns Section Related Observation LastModified by Organization Detai ls LastModified Time None Recorded Concern Status LastModified by Organization Details LastModified Time None Recorded Advance Directives Directive None Recorded Payers Insurance Date Sequence Insurance Name Policy Number Policy Philippe Covered Member ID Philippe Member ID Guarantor Name 02/24/2025 1 [facility] - DUAL ELIGIBLE (MEDICARE REPLACEMENT/A DVANTAGE - HMO) MODSNP Sim Bynum Dold [id number] [facility] Dold 04/11/2024 1 [employer] (MEDICARE REPLACEMENT/A DVANTAGE - HMO) [id number] Sim Dold [id number] [facility] Dold 10/04/2024 1 [place] - [place]PO) [id number] [facility] Dold [id number] [facility] Dold 08/15/2023 1 [place] DV[place] - [place]PO) [id number] [facility] Dold [id number] [facility] Dold 02/24/2025 2 [place] Sim Fletcher Dold [id number] [facility] Dold 02/24/2025 [place] [facility] Dold [id number] [facility] Dold Notes Date Note Type Note Provider Name and Address Organization Details Recorded Time 07/23/2024 text/html ROS as noted in the HPI walk inx 2days rash to groin/inner thighs-redness no other symptoms. No sores present. Has not used anything to treat symptoms. MODESTO WILLIS [address] [place] [address], [phone], [facility], LMyla 07/23/2024 09:43:49 08/22/2024 text/html General Rash/Ski n [...] area that he's had for several days. alf has been using clotrimazole cream on it but doesn't seem to be helping. Patient says that rash is not painful or itchy. Lavelle Soriano MD [address] [place] [address], [phone], [facility] 08/22/2024 18:05:12 10/24/2024 text/html ROS as [...] that since he recently changed insurance to [facility] that his sensors will not be covered Constance Harrell DO [address] [place] [address], [phone], [facility] 10/24/2024 14:08:17 02/24/2025 text/html Musculoskeletal PainReported by PatientROS as noted in the HPI walk in patientpatient is here today for muscle cramping in his left calf off and on that started years ago Lisa lynch, [facility] 02/24/2025 13:58:35
--- OUTSIDE RECORDS SUMMARY | 2025-02-24 13:25 | XMS_ITS | Encounter Summary ---
Author Organization [facility] Address [address] [place] [address] Care Team Providers Care Clerical Adjudicator Name Role Phone Unavailable Primary Care Provider Unavailabl e Encounter Details Date Type Department Care Team (Latest Contact Info) Description 03/11/2004 Outpatient Historical [facility] Gastroenterology- [place] 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 Gender Identity Not on file Sexual Orientation Not on file documented as of this encounter Plan of Treatment Not on file documented as of this encounter Procedures Procedure Name Priority Date/Time Associated Diagnosis Comments HEPATITIS A AB IGG/IGM Routine 03/11/2004 1:04 PM INTERNATIONAL ORGANIZER HEPATITIS A IGM Routine 03/11/2004 1:04 PM INTERNATIONAL ORGANIZER documented in this encounter Results * HEPATITIS A IGM (03/11/2004 1:04 PM INTERNATIONAL ORGANIZER) HEPATITIS A IGM Negative Negative INTERFACE SYSTEM 03/11/2004 1:04 PM INTERNATIONAL ORGANIZER us Paulino Casanova MD CHEMISTRY ORDERABLES Final Resul t INTERFACE SYSTEM Refer to clinic/hospital department * (ABNORMAL) HEPATITIS A AB IGG/IGM (03/11/2004 1:04 PM INTERNATIONAL ORGANIZER) HEPATITIS A IGG/IGM AB Positive( A) Negative INTERFACE SYSTEM Comment: The HAV IgG/IgM test on the hepatitis panel screens for total HAV antibody and does not distinguish between acute HAV or immunity to HAV. If acute HAV is suspected the HAV-IgM test serologically confirms an acute HAV infection. 03/11/2004 1:04 PM INTERNATIONAL ORGANIZER us Paulino Casanova MD CHEMISTRY ORDERABLES Final Resul t INTERFACE SYSTEM Refer to clinic/hospital department documented in this encounter Visit Diagnoses Diagnosis Chronic hepatitis C without mention of hepatic coma (CMS/HCC)- Primary Chronic hepatitis C without mention of hepatic coma documented in this encounter
--- OUTSIDE RECORDS SUMMARY | 2025-02-24 13:25 | XMS_ITS | Encounter Summary ---
Author Organization [facility] Address [address] [place] [address] Care Team Providers Care Welfare Supervisor Name Role Phone Unavailable Primary Care Provider [...] on file Legal Sex Male 6:47 AM SHANK TAPPER Gender Identity Not on file Sexual Orientation Not on file documented as of this encounter Plan of Treatment Not on file documented as of this encounter Visit Diagnoses Diagnosis Chronic hepatitis C without mention of hepatic coma (CMS/HCC)- Primary Chronic hepatitis C without mention of hepatic coma documented in this encounter
--- OUTSIDE RECORDS SUMMARY | 2025-02-24 13:25 | XMS_ITS | Continuity of Care Document ---
Author Organization [facility], L.LBradyCBrady, [facility] ([facility] [place] [facility]) Address [address] [place] [address] Care Team Providers Care Radiator Mechanic Name Role Phone KYRA NAILS Internal Medicine JUANITO CURRIE Internal Medicine CONSTANCE HARRELL Primary Care Provider Unavailabl e Assessment No assessment recorded. Plan of Treatment Reminders Order Date Submit Date Provider Last Modified By Organization Details Last Modified Time Details Appointments ACUTE VISIT 2024 10:20A M WALK-IN Not available Not available Not available OFFICE VISIT 10 2025 04:10P M Constance Harrell, DO Not available Not available Not available Lab None recorded . Referral None recorded . Procedures None recorded . Surgeries None recorded . Imaging None recorded . Medication Orders None recorded . Patient TargetsNo targets recorded. Patient InstructionsNo instructions recorded. Reason for Referral None Reported. Problems Name Problem SNOMED Code Status Onset Date Resolution Date Notes Provider Name and Address Organization Details Recorded Time Insomnia 107927209 Active 2022 Cr lynch [facility] 5 09:57:37 Schizophren ia 01872659 Active 2022 Cr lynch [facility] 5 09:56:34 Viral hepatitis C 41732831 Active 2022 Cr lynch [facility]CB[facility] 5 09:56:41 Gastroesoph ageal reflux disease 377735895 Active 2022 Cr Phillips [facility], [facility] 5 09:58:29 Hepatitis C carrier 693977761 Active 2022 Cr Kadeemyumiko [facility], [facility] 5 10:02:04 Hyperlipide miki 05494423 Active 2022 Cr Quanyumiko [facility], [facility] 5 09:57:46 Constipatio n 05494638 Active 2022 Anna Haile [facility] 5 09:22:49 Essential hypertensio n 81413870 Active 2023 Anna Be [facility] 5 09:22:49 Bipolar disorder 09422716 Active 2023 Anna Be [facility] 5 09:22:49 Hyperglycem ia due to type 2 diabetes mellitus 2561393552949 09 Active 2023 Anna Be [facility] 5 09:22:49 Chronic kidney disease stage 3 533548010 Active 2023 Anna Be [facility] 5 09:22:49 History of polyp of colon 458304784 Active 2024 Cr Quanyumiko [facility] 5 10:17:46 History of myocardial infarction 924114277 Active 2024 Cr Phillips [facility] 5 10:17:48 Skin ulcer of toe due to diabetes mellitus type 2 4021162619042 9102 Active 2024 Cr Phillips [facility] 10:23:05 Intertrigo 72381970 Active 2024 Lavelle Soriano MD [address] [place] [address], [phone], [facility], [place] 15:41:30 Problem Notes None recorded. Procedures Surgical History Date Name Laterality Status Provider Name and Address Organization Details Recorded Time extraction of cataract completed Anna Be [facility] [place] 06/12/2024 09:35:59 Imaging Results None recorded. Procedure [...] completed Not Available Not Available Not Available BiofortunaTouch Ultra Test strips USE TO test blood [...] d then back to prn daily cs/smf; 61655; Recorded 01/13/20 22 1:20PM by Kerry Barajas RN (Marcella clayton through Prashanth Wu DO), Refill Request; Refill Quantity : 30; Tablet; Not Available Not Available Not Available lithium carbonate two times daily 11/01 completed CS/smf; 23671; Recorded 12/21/19 22 11:40AM by Kerry Barajas RN (Marcella clayton through Prashanth Wu DO), Refill Request; Refill Quantity : 60; Tablet; Not Available Not Available Not Available lancets two times daily 11/08 completed cs/smf; 23425; Recorded 11/25/19 22 11:59AM by Kerry Barajas RN (Authori zed through Prashanth Wu DO), Refill Request; Refill Quantity : 100; Each; Not Available Not Available Not Available glipizide daily 11/01 completed DOC RM/bn; 9; Recorded 02/17/20 10:54AM by Rhiannon Crawford (Authori zed through Buster Kapoor MD), Refill Request; Refill Quantity : 0; Not Available Not Available Not Available metformin two times daily 11/01 completed cs/smf; 46357; Recorded 05/10/19 6:18PM by Azra Grant (Authori zed through Lavelle Soriano MD), Refill Request; Refill Quantity : 60; Tablet; Not Available Not Available Not Available Vitamin daily 11/08 completed cs/smf; 06491; Recorded 03/16/19 8:07AM by Kerry Barajas RN (Authori zed through Prashanth Wu DO), Refill Request; Refill Quantity : 30; Tablet; Not Available Not Available Not Available One Touch Ultra Test Strips two times daily 08/14 completed Not Available Not Available Not Available Potassium Chloride ER daily 11/01 completed cs/smf; 50152; Recorded 04/04/19 12:05PM by Kerry Barajas RN [...] Farxiga daily 11/01 completed dose increase cs/smf; 76098; Recorded 02/23/20 22 2:10PM by Kerry Barajas [...] Available Pentips Pen Needle 31 gauge x 05/12 USE DIRECTED WITH INSULIN; NO DOCUMENT ATION [...] Available No t Available FreeStyle Khris 2 [place] USE DIRECTED TO TEST BLOOD SUGAR 10/24 completed Not Available Not Available Not Available losartan potassium (bulk) daily 11/01 completed cs/smf; 55016; Recorded 03/16/19 23 9:40AM by Kerry Barajas [...] Updated DateTime 5 182.88 cm 27.4 kg/m2 29403.6 6 g 99 % 84 /min 16 /min 98.2 [degF] 126/80 mm[Hg] Lisa Mitchell [facility] 5 11:38:32 Social History Question Answer Notes LastModified by Organizat ion Details LastModified Time Tobacco Smoking Status Former Smoker quit in 2005 rC lynch [facility] 06/12/2024 10:15:14 Are You Blind Or Do You Have Difficulty Seeing? No [email or web address] Information not available 05/25/2022 Are You Deaf Or Do You Have Serious Difficulty Hearing? No [email or web address] Information not available 05/25/2022 When Did You Quit Smoking? 15+yearssin leana farmer [email or web address] Information not available 05/25/2022 Have You Had Direct Contact, Or Contact During Intimacy, With Monkeypox Rash, Scabs, Or Body Fluids From A Person With Monkeypox? No [email or web address] Information not available 05/25/2022 What Was The Date Of Your Most Recent Tobacco Screening? 02/24/2025 [email or web address] Information not available 02/24/2025 Have You Recently Traveled Abroad? No [email or web address] Information not available 05/25/2022 Do You Have Difficulty Walking Or Climbing Stairs? No [email or web address] Information not available 05/25/2022 Sex: Unknown Functional Status Question Answer Note LastModified by Organizat ion Details LastModified Time Are you able to walk independently without assistance or assistive devices? YESWOREST [email or web address] Information not available 05/25/2022 Do you have difficulty doing errands alone? No Information not available 05/25/2022 Are you able to care for yourself independently? No Information not available 05/25/2022 Do you have difficulty dressing, bathing, grooming, or toileting? No [email or web address] Information not available 05/25/2022 Mental Status Question Answer Note LastModified by Organization D etails LastModified Time Do you have difficulty concentrating, remembering or making decisions? No [email or web address] Information no t available 05/25/2022 Family History Nothing Reported Notes:Father: Heart Disease Mother: Heart Disease Prostate Cancer Medical History No medical history recorded. Immunizations Vaccine Type Date Status Note Provider Nam e and Address Organization Details Recorded Time Influenza, split virus, quadrivalent, preservative 9 completed Roselia lynch [facility] 08/15/2023 08:54:11 Influenza, adjuvanted, trivalent, PF 7 completed Roselia lynch [facility] 08/15/2023 08:54:11 Influenza, MDCK, quadrivalent, PF 2 completed [facility] 08/15/2023 08:54:11 zoster recombinant 8 completed [facility] 08/15/2023 08:54:11 COVID-19, mRNA, LNP-S, PF, 100 mcg/0.5mL dose or 50 mcg/0.25mL dose 1 completed [facility] 08/15/2023 08:54:11 COVID-19, mRNA, LNP-S, PF, 100 mcg/0.5mL dose or 50 mcg/0.25mL dose [facility] 08/15/2023 08:54:11 COVID-19, mRNA, LNP-S, PF, 100 mcg/0.5mL dose or 50 mcg/0.25mL dose 2 completed [facility] 08/15/2023 08:54:11 COVID-19, mRNA, LNP-S, bivalent, PF, 50 mcg/0.5 mL or 25mcg/0.25 mL dose 3 completed [facility] 08/15/2023 08:54:11 pneumococcal polysaccharide PPV23 1 [facility] 08/15/2023 08:54:11 Tdap 1 completed [facility] 08/15/2023 08:54:11 pneumococcal, unspecified formulation 1 completed [facility] 08/15/2023 08:54:11 Influenza, split virus, trivalent, preservative 4 completed Roselia Diaz [facility] 08/15/2023 08:54:11 Influenza, split virus, trivalent, preservative 7 completed Roselia Diaz [facility] 08/15/2023 08:54:11 Influenza, split virus, trivalent, preservative 1 completed Roselia Diaz [facility] 08/15/2023 08:54:11 Influenza, split virus, trivalent, preservative 3 completed Roselia Diaz [facility] 08/15/2023 08:54:11 Influenza, split virus, trivalent, PF 6 completed Roselia Diaz [facility] 08/15/2023 08:54:11 Influenza, split virus, trivalent, PF 5 completed Roselia Diaz [facility] 08/15/2023 08:54:11 Influenza, split virus, quadrivalent, PF 0 completed Roselia Diaz [facility] 08/15/2023 08:54:11 Hep A-Hep B 5 completed Roselia Diaz [facility] 08/15/2023 08:54:11 Hep A-Hep B 4 completed Roselia Diaz [facility] 08/15/2023 08:54:11 Hep A-Hep B 4 completed Roseliaperri Diaz [facility] 08/15/2023 08:54:11 Influenza, split virus, quadrivalent, PF 3 completed Roselia Diaz [facility] 12/05/2023 10:23:43 Influenza, MDCK, trivalent, PF 4 completed Not Available [facility] 10/24/2024 10:02:21 COVID-19, mRNA, LNP-S, PF, 50 mcg/0.5 mL 4 completed Not Available [facility] 10/24/2024 10:02:21 Pneumococcal conjugate PCV20, polysaccharide [id number] conjugate, adjuvant, PF 5 completed Not Available [facility] 10/24/2024 10:02:21 zoster recombinant 9 completed Roselia lynch [facility] 08/15/2023 08:54:11 Influenza, split virus, trivalent, preservative 5 completed Roselia lynhc, [facility] 08/15/2023 08:54:11 Td(adult) unspecified formulation 3 completed Not Available Replaced by [facility] 09/24/2022 02:26:13 Past Encounters Encounter ID Performer Location Encounter Start Date Encounter Closed Date Diagnosis/Indication Diagnosis SNOMED-CT Code Diagnosis ICD10 Code Diagnosis IMO Codes Diagnosis Note [id number] MODESTO GARCIA [facility] ([facility]) [address] [place] [phone] 02/24/2025 11:27:36 02/24/2025 13:15:40 Health Concerns Section Related Observation LastModified by Organization Detai ls LastModified Time None Recorded Concern Status LastModified by Organization Details LastModified Time None Recorded Payers Encounter Date Sequence Insurance Name Policy Number Policy Philippe Covered Member ID Philippe Member ID Guarantor Name 02/24/2025 2 [place] [id number] Sim [place] 02/24/2025 1 [facility] - DUAL ELIGIBLE (MEDICARE REPLACEMENT/A DVANTAGE - HMO) MODSNP Sim Angeles [id number] Sim [place] Notes Date Note Type Note Provider Name and Address Organization Details Recorded Time 02/24/2025 text/html Musculoskeletal PainReported by PatientROS as noted in the HPI walk in patientpatient is here today for muscle cramping in his left calf off and on that started years ago Lisa lynch [facility] .L.CBrady 02/24/2025 13:58:35
--- OUTSIDE RECORDS SUMMARY | 2025-02-24 13:25 | XMS_ITS | Clinical Summary ---
Author Organization [facility] Address [address] [place]: Epic Prelude ADT MONI RAE [address] Care Team Providers Care Anesthesiologist Assistant Name Role Phone Unavailable Primary Care Provider Unavailabl e Immunizations Immunization Administration Dates Next Due Hepatitis A Vaccine 05/14/2004,12/19/2003,2003 Social History Tobacco Use Types Packs/Day Years Used Date Smoking Tobacco: Never Assessed Sex and Gender Information Value Date Recorded Sex Assigned at Not on file Legal Sex Male 6:47 AM [employer] Gender Identity Not on file Sexual Orientation [...]
[2025-02-24 13:34] VITALS: BP 143/82; PULSE 65; TEMP 36.6; O2SAT 97
--- NOTE | 2025-02-24 13:50 | W.ED.EXTPRO ---
HPI - Extremity Problem General: Chief complaint: Extremity Problem,Nontraumatic Stated complaint: left lower leg pain Time Seen by Provider: 02/24/25 13:42 Source: patient Mode of arrival: ambulatory Limitations: no limitations History of Present Illness: Patient is a 65-year-old male who presents to the ED today from [facility] for concerns of edema to his left leg. Patient overall is a fairly poor historian and cannot tell me how long his leg has been swollen for. He does mention a fall years ago and feels like maybe it has been swelling since then. He does feel like he gets cramps to his left calf. He has not noticed any redness to the leg or color/temperature changes. He has not complained of shortness of breath or difficulty breathing. [facility] was also requesting a lithium level be drawn-it was reportedly high several days ago so he was discontinued on this medication. MD Complaint: extremity pain and extremity swelling Onset (ago): unknown Pain Consistency: intermittent Location: left and lower extremity Quality: other (cramping) Radiation: none Relieving factors: nothing Exacerbating factors: nothing Associated symptoms: Reports no associated symptoms; Deny chest pain, fever(s) or rash Related Data Home Medications ?Medication ?Instructions ?Recorded ?Confirmed acetaminophen 325 mg tablet 650 mg PO Q6H PRN Pain 07/08/19 02/04/25 (Tylenol) lithium carbonate 300 mg tablet 300 mg PO BID@07/08/19 02/04/25 metformin 1,000 mg tablet 1,000 mg PO BID@07/08/19 02/04/25 Held on 11/29/24. Instructions: Resume on 12/02/24. olanzapine 15 mg tablet (Zyprexa) 15 mg PO BEDTIME@07/08/19 02/04/25 olanzapine 2.5 mg tablet (Zyprexa) 2.5 mg PO BEDTIME@07/08/19 02/04/25 zolpidem 10 mg tablet (Ambien) 10 mg PO BEDTIME PRN insomnia 07/08/19 02/04/25 bismuth subsalicylate 525 mg/15 mL 525 mg PO QID PRN Diarrhea 10/07/21 02/04/25 oral suspension (Pepto-Bismol Max St) polyethylene glycol 3350 17 17 g PO DAILY@10/07/21 02/04/25 gram/dose oral powder fluticasone propionate 50 1 spray intranasal DAILY PRN 11/12/21 02/04/25 mcg/actuation nasal Congestion spray,suspension melatonin 3 mg capsule 9 mg PO BEDTIME 11/12/21 02/04/25 omeprazole 20 mg tablet,delayed 20 mg PO DAILY@07 04/08/22 02/04/25 release simvastatin 20 mg tablet 20 mg PO BEDTIME@04/08/22 02/04/25 aluminum-mag hydroxide-simethicone 10 - 20 ml PO .BETWEEN MEALS OR HS 04/07/23 02/04/25 200 mg-200 mg-20 mg/5 mL oral susp PRN unknown insulin degludec 100 unit/mL (3 20 unit SUBCUT BEDTIME 04/07/23 02/04/25 mL) subcutaneous pen (Tresiba FlexTouch U-100 insulin) insulin lispro 100 unit/mL 5 unit SUBCUT TID@06,11,16 04/07/23 02/04/25 subcutaneous solution (Humalog U-100 Insulin) metoprolol succinate 50 mg 25 mg PO BID 04/07/23 02/04/25 tablet,extended release 24 hr potassium chloride 10 mEq 10 meq PO DAILY@04/07/23 02/04/25 tablet,extended release topiramate 200 mg tablet 200 mg PO BEDTIME@04/07/23 02/04/25 vitamins A,C,M-gyjs-apugkb 4,296 1 cap PO BID@07,04/07/23 02/04/25 mcg-226 mg-90 mg capsule (PreserVision AREDS) losartan 50 mg tablet 50 mg PO DAILY 07/26/23 02/04/25 Previous Rx's ?Medication ?Instructions ?Recorded clopidogrel 75 mg tablet 75 mg PO DAILY #90 tabs 06/29/23 CAM boot #1 ea 04/25/24 diabetic shoes with 3 inserts #1 ea 10/03/24 nitroglycerin 0.4 mg sublingual 0.4 mg sublingual Q5M PRN chest 11/06/24 tablet (Nitrostat) pain #20 tabs aspirin 81 mg tablet,delayed 81 mg PO DAILY #90 tabs 01/30/25 release alprazolam 1 mg tablet (Xanax) 1 mg PO BID PRN anxiety #14 tabs 02/16/25 Allergies Allergy/AdvReac Type Severity Reaction Status Date / Time No Known Allergies Allergy Verified 02/24/25 13:40 Review of Systems Const: Denies: fever(s), chills, body aches, fatigue or malaise Card: Denies: chest pain, palpitations, lightheadedness, syncope or pre-syncope Resp: Denies: dyspnea GI: Denies: abdominal pain Musc: Reports: extremity pain, extremity swelling and muscle cramps; Denies: neck pain, back pain, joint pain, joint swelling, joint redness, joint warmth, joint stiffness, limited range of motion, muscle weakness, decrease in muscle mass, loss of height or deformity Skin/Breast: Denies: rash Neuro: Denies: headache(s), numbness in extremities, weakness in extremities, sensory changes, difficulty walking or dizziness PFS ED PFSH: Medical History Ischemic cardiomyopathy Diabetes Chronic kidney disease (CKD) Acute anterior wall [place] [facility] Cigarette smoker Other schizophrenia Social History Smoking and tobacco/nicotine status: former use of tobacco/nicotine (Quit in 2005) Physical Exam Const: COMMON NORMALS: no acute distress, average body habitus, patient oriented x3, no limitations, healthy appearing, alert and well nourished GENERAL APPEARANCE: cooperative ORIENTATION/CONSCIOUSNESS: Yes awake, Yes oriented to person, Yes oriented to place and Yes oriented to time Resp: COMMON NORMALS: normal respiratory effort and clear to auscultation bilaterally AUSCULTATION: clear to auscultation bilaterally Cardio: COMMON NORMALS: regular rate and regular rhythm RATE: regular rate RHYTHM: regular rhythm GI: COMMON NORMALS: Normal to inspection, nondistended, normoactive bowel sounds present, Soft to palpation, non-tender, No hepatosplenomegaly present and no masses PALPATION: Yes Soft to palpation and Yes No hepatosplenomegaly present Back/Pelvis: COMMON NORMALS: thoracic and lumbar spine normal to inspection, no thoracic nor lumbar tenderness, thoraco-lumbar ROM normal and straight leg raise negative bilaterally Extremity: COMMON NORMALS: full ROM, capillary refill normal and no joint enlargement GENERAL: Yes normal exam except as noted OTHER: mild 1+ pitting edema of L LE starting distal to knee; NV intact with normal sensation and distal pulses; no color/temp changes noted; negative Suzy's; no palpable cords Neuro: COMMON NORMALS: patient oriented x3, moves all extremities, no focal motor deficits and no sensory deficits noted SENSORIUM/ORIENTATION: Yes alert, Yes oriented to person, Yes oriented to place and Yes oriented to time Skin: COMMON NORMALS: no rashes or lesions noted GENERAL SKIN EXAM: no rashes or lesions noted Course Vital Signs: Vital signs: Vital Signs Temperature 97.9 F 02/24/25 13:34 Pulse Rate 65 02/24/25 13:34 Blood Pressure 143/82 02/24/25 13:34 Pulse Oximetry 97 02/24/25 13:34 Oxygen Delivery Me thod Room Air 02/24/25 13:34 MDM - Extremity (Nontraumatic) Medical Decision Making Patient is a 65-year-old male here for swelling to the left leg-unknown chronicity. His vital signs are stable. Extremity is NV intact. No concern for infection or acute arterial occlusion. US obtained showing no DVT. Patient blood work overall is unremarkable. His creatinine is at baseline. [facility] had requested a lithium level so this was drawn today and was 0.2. Patient will be allowed discharge back to [facility] [place]. Return precautions discussed. Differential Diagnosis Likely superficial thrombophlebitis, lower extremity edema and deep vein thrombosis of lower extremity Medical Records I reviewed the patient's medical records. Lab Data I reviewed the patient's lab results. 02/24/25 14:14 02/24/25 14:14 Laboratory Results WBC 7.68 10^3/uL (3.29-11.43) 02/24/25 14:14 RBC 4.52 10^6/uL (3.85-5.65) 02/24/25 14:14 Hgb 14.40 g/dL (11.27-16.99) 02/24/25 14:14 Hct 43.2 % (37-53) 02/24/25 14:14 MCV 95.6 fl (82-101) 02/24/25 14:14 MCH 31.9 pg (27-33) 02/24/25 14:14 MCHC 33.3 g/dL (30-55) 02/24/25 14:14 RDW 12.6 % (12.1-15.1) 02/24/25 14:14 Plt Count 152 10^3/cmm (157-399) L 02/24/25 14:14 MPV 10.1 fL (7.4-10.4) 02/24/25 14:14 Neut % (Auto) 68.0 % 02/24/25 14:14 Lymph % (Auto) 18.9 % 02/24/25 14:14 [place] % (Auto) 8.1 % 02/24/25 14:14 Eos % (Auto) 4.3 % 02/24/25 14:14 Baso % (Auto) 0.3 % 02/24/25 14:14 Neut # (Auto) 5.23 10^3/uL (1.8-7.7) 02/24/25 14:14 Lymph # (Auto) 1.5 10^3/uL (0.8-4.8) 02/24/25 14:14 [place] # (Auto) 0.6 10^3/uL (0.2-0.9) 02/24/25 14:14 Eos # (Auto) 0.3 10^3/uL (0.0-0.8) 02/24/25 14:14 Baso # (Auto) 0.0 10^3/uL (0.0-0.1) 02/24/25 14:14 Nucleated RBC % (auto) 0 % 02/24/25 14:14 Nucleated RBCs # 0.0 /100WBC 02/24/25 14:14 Sodium 140 mmol/L (136-145) 02/24/25 14:14 Potassium 4.3 mmol/L (3.5-5.1) 02/24/25 14:14 Chloride 107 mmol/L (98-107) 02/24/25 14:14 Carbon Dioxide 21 mmol/L (22-29) L 02/24/25 14:14 Anion Gap 16.3 (5-19) 02/24/25 14:14 BUN 23 mg/dL (8-23) 02/24/25 14:14 Creatinine 1.5 mg/dL (0.7-1.2) H 02/24/25 14:14 GFR Calculation 46.8 mL/min (90-130) L 02/24/25 14:14 Glucose 209 mg/dL (65-115) H 02/24/25 14:14 Calculated Osmolality 300 mOsm/kg (285-295) H 02/24/25 14:14 Calcium 9.0 mg/dL (8.5-10.5) 02/24/25 14:14 Total Bilirubin 0.2 mg/dL (0.15-1.2) 02/24/25 14:14 AST 15 U/L (0-40) 02/24/25 14:14 ALT 15 U/L (0-41) 02/24/25 14:14 Alkaline Phosphatase 96 U/L (40-130) 02/24/25 14:14 Total Protein 6.6 g/dL (6.6-8.7) 02/24/25 14:14 Albumin 4.1 g/dL (3.5-5.2) 02/24/25 14:14 Globulin 2.5 g/dL (1.3-4.6) 02/24/25 14:14 [place] 0.2 mmol/L (0.6-1.2) L 02/24/25 14:14 XR interpretation done by ED provider, pending radiology final review (per [place]-US tech-no DVT visualized) Discharge Plan Discharge Patient Disposition: Home Clinical Impression: Edema of left lower extremity Condition: Stable Prescriptions: No Action metformin 1,000 mg tablet 1,000 mg PO BID@,20 lithium carbonate 300 mg tablet 300 mg PO BID@07,20 olanzapine [Zyprexa] 2.5 mg tablet 2.5 mg PO BEDTIME@20 Rx Instructions: take with 15mg to =17.5mg olanzapine [Zyprexa] 15 mg tablet 15 mg PO BEDTIME@20 Rx Instructions: take with 2.5mg tab to =17.5mg acetaminophen [Tylenol] 325 mg tablet 650 mg PO Q6H PRN (Reason: Pain) zolpidem [Ambien] 10 mg tablet 10 mg PO BEDTIME PRN (Reason: insomnia) omeprazole 20 mg tablet,delayed release (DR/EC) 20 mg PO DAILY@07 melatonin 3 mg capsule 9 mg PO BEDTIME fluticasone propionate 50 mcg/actuation spray,suspension 1 spray intranasal DAILY PRN (Reason: Congestion) Rx Instructions: administer into each nostril Pepto-Bismol Max St 525 mg/15 mL suspension 525 mg PO QID PRN (Reason: Diarrhea) Rx Instructions: do not exceed 8 doses in a 24 hour period polyethylene glycol 3350 17 gram/dose powder 17 g PO DAILY@07 simvastatin 20 mg tablet 20 mg PO BEDTIME@20 losartan 50 mg tablet 50 mg PO DAILY (DME) CAM boot See Rx Instructions .Route .MEDSUPPLY Qty: 1 0RF Rx Instructions: As directed ([place]) diabetic shoes with 3 inserts See Rx Instructions .Route .MEDSUPPLY Qty: 1 0RF Rx Instructions: As directed to [facility] diabetic [facility] nitroglycerin [Nitrostat] 0.4 mg tablet, sublingual 0.4 mg sublingual Q5M PRN (Reason: chest pain) Qty: 20 3RF Rx Instructions: do not exceed 3 doses per episode clopidogrel 75 mg tablet 75 mg PO DAILY Qty: 90 3RF aspirin 81 mg tablet,delayed release (DR/EC) 81 mg PO DAILY Qty: 90 3RF potassium chloride 10 mEq tablet extended release 10 meq PO DAILY@07 topiramate 200 mg tablet 200 mg PO BEDTIME@20 alum-mag hydroxide-simeth 200-200-20 mg/5 mL Suspension 10 - 20 ml PO .BETWEEN MEALS OR HS PRN (Reason: unknown) insulin lispro [Humalog U-100 Insulin] 100 unit/mL solution 5 unit SUBCUT TID@06,11,16 Rx Instructions: hold if bs is <70 PreserVision AREDS 4,296 mcg-226 mg-90 mg capsule 1 cap PO BID@07,20 insulin degludec [Tresiba FlexTouch U-100] 100 unit/mL (3 mL) insulin pen 20 unit SUBCUT BEDTIME metoprolol succinate 50 mg tablet extended release 24 hr 25 mg PO BID alprazolam [Xanax] 1 mg tablet 1 mg PO BID PRN (Reason: anxiety) Qty: 14 0RF Discharge Orders: Discharge ED (Routine); Ordered 02/24/25 Ordered By: Alva Monroe Referrals: Patrick Perez DO [Primary Care Provider, Family Practice] Patient Instructions: Patient Portal & Jimy Instructions Activity Restrictions/Additional Instructions: We discussed, your ultrasound today did not show any DVT (blood clot) involving your left lower leg. Your blood work here overall was unremarkable. Mild elevations to your creatinine at 1.5 which seems to be your baseline. We did run a lithium level today and this was 0.2. Print Language: Albanian Coding Level of Care Code ED Audio/Video Technician for Sachi Rnee
--- NOTE | 2025-02-24 13:51 | USCV_ITS ---
Sim Angeles Age: 65 Gender: M : 1960 Exam Date: 02/24/2025 14:23 Ordering Phys: Alva Monroe Technologist: Exam Location[place] [facility] [place] Indication: lt leg pain and swelling PROCEDURES: Venous duplex imaging was performed in only the left lower extremity. The following venous structures were evaluated: common femoral vein, profunda vein, proximal portion of the greater saphenous vein, superficial femoral vein, and the popliteal vein. In addition, the posterior tibial and peroneal trunk were evaluated. FINDINGS: Normal 2-D Doppler and augmentation and compressibility throughout the lower extremity venous structures. Additional imaging through the proximal calf veins also reveals no thrombus. Limited evaluation of the greater saphenous vein is patent with no thrombus. CONCLUSIONS No evidence of left lower extremity DVT. Tony Akers MD (Electronically Signed) Final Date: 24 February 2025 15:34 S
[2025-02-24 14:18] LABS: Hematocrit 43.2 % (37-53); Hemoglobin 14.40 g/dL (11.27-16.99); Mean Corpuscular HGB Conc 33.3 g/dL (30-55); Mean Corpuscular Hemoglobin 31.9 pg (27-33); Mean Corpuscular Volume 95.6 fl (82-101); Nucleated Red Blood Cells % 0 %; Platelet Count 152 10^3/cmm (157-399); Red Blood Count 4.52 10^6/uL (3.85-5.65); White Blood Count 7.68 10^3/uL (3.29-11.43)
[2025-02-24 14:40] LABS: Alanine Aminotransferase 15 U/L (0-41); Albumin Level 4.1 g/dL (3.5-5.2); Alkaline Phosphatase 96 U/L (40-130); Anion Gap 16.3 (5-19); Aspartate Amino Transferase 15 U/L (0-40); Blood Urea Nitrogen 23 mg/dL (8-23); Calcium 9.0 mg/dL (8.5-10.5); Carbon Dioxide 21 mmol/L (22-29); Chloride 107 mmol/L (98-107); Globulin 2.5 g/dL (1.3-4.6); Glucose 209 mg/dL (65-115); Osmolality Calculated 300 mOsm/kg (285-295); Potassium 4.3 mmol/L (3.5-5.1); Sodium 140 mmol/L (136-145); Total Protein 6.6 g/dL (6.6-8.7)
[2025-02-24 14:49] LABS: Lithium 0.2 mmol/L (0.6-1.2)
== END 2025-02-24 15:25 | disposition home or self-care (01) ==
PROVIDERS: Emergency Provider Physician Assistant; PCP Electrodiagnostic Medicine
DX: R60.0 Localized edema (principal); Z79.84 Long term (current) use of oral hypoglycemic drugs; Z79.02 Long term (current) use of antithrombotics/antiplatelets; Z79.82 Long term (current) use of aspirin; Z79.4 Long term (current) use of insulin; Z87.891 Personal history of nicotine dependence; E11.22 Type 2 diabetes mellitus with diabetic chronic kidney disease; N18.9 Chronic kidney disease, unspecified
CPT/HCPCS: 36415; 80053; 80178; 85025; 93971; 99284